=== PATIENT | male | born 1945 | race African-American/Black ===

== ENCOUNTER → 2017-02-25 | Outpatient (CLI) | payer MEDICARE, OTHER ==
[2017-02-25 14:27] LABS: ALT 26 U/L (21-72); AST 18 U/L (17-59); Alkaline Phosphatase 103 U/L (38-126); Anion Gap 16 mmol/L; Blood Urea Nitrogen 18 mg/dL (9-20); Calcium 9.9 mg/dL (8.4-10.2); Carbon Dioxide 23 mmol/L (22-30); Chloride 103 mmol/L (98-107); Cholesterol 220 mg/dL (<200); Glucose 205 mg/dL (74-99); HDL Cholesterol 58 mg/dL (40-60); Non-African American GFR(MDRD) >60 (>60 ml/min/1.73 sqM); Potassium 4.7 mmol/L (3.5-5.1); Sodium 142 mmol/L (137-145); Total Bilirubin 0.9 mg/dL (0.2-1.3); Total Protein 8.1 g/dL (6.3-8.2); Triglycerides 121 mg/dL (<150)
== END | disposition home or self-care (01) ==
LOC: LABWHC1 13:53
PROVIDERS: ATTEND Internal Medicine Endocrinology, Diabetes & Metabolism
DX: E11.65 Type 2 diabetes mellitus with hyperglycemia (principal)
CPT/HCPCS: 36415; 80053; 80061; 82043

== ENCOUNTER 2017-05-07 14:55 | Emergency (ER) | payer MEDICARE, OTHER ==
[2017-05-07 14:59] VITALS: TEMP 98.8
[2017-05-07 15:29] LABS: Glucose,Whole Blood 276 mg/dL (75-99)
[2017-05-07] MEDS ORDERED: LABETALOL 5 MG/ML VIAL MDV IVP STA (15:47)
--- NOTE | 2017-05-07 15:50 | ED ---
General Adult HPI - General Chief complaint: Dizziness Stated complaint: Hypertension Time Seen by Provider: 05/07/17 15:40 Source: patient, RN notes reviewed Mode of arrival: wheelchair Limitations: no limitations - History of Present Illness Initial comments: Patient is a pleasant 71-year-old male presenting to the emergency Department with concerns for hypertension. Onset of symptoms a couple hours ago. Patient felt lightheaded and did check his blood pressure. Blood pressure was 260 systolic. Patient rechecked it with a similar finding. Patient is feeling better at this time and states right headedness has near resolved. Patient does have a history of hypertension and does take his medication as directed. Patient did take his medication today. Patient does admit to having some increased stress recently. No confusion. No weakness. No chest pain. - Related Data Home Medications Medication Instructions Recorded Confirmed Aspirin [Adult Low Dose Aspirin EC] 81 mg PO DAILY 05/26/16 05/07/17 Carvedilol [Coreg] 12.5 mg PO BID 05/26/16 05/07/17 HYDROcodone/APAP 10-325MG [[place] 1 tab PO Q8H PRN 05/26/16 05/07/17 10-325] Lisinopril 40 mg PO DAILY 05/26/16 05/07/17 Simvastatin [Zocor] 20 mg PO HS 05/26/16 05/07/17 amLODIPine [Norvasc] 10 mg PO DAILY 05/26/16 05/07/17 cloNIDine HCL [Catapres] 0.2 mg PO TID 05/26/16 05/07/17 glipiZIDE XL [Glucotrol Xl] 10 mg PO DAILY 05/26/16 05/07/17 metFORMIN HCL [metFORMIN HCL ER] 1,000 mg PO BID 05/26/16 05/07/17 Insulin Detemir [Levemir] 74 unit SQ HS 05/07/17 05/07/17 Allergies Allergy/AdvReac Type Severity Reaction Status Date / Time antibiotics Allergy Unknown Uncoded 05/07/17 14:59 Review of Systems ROS Statement: Those systems with pertinent positive or pertinent negative responses have been documented in the HPI. ROS Other: All systems not noted in ROS Statement are negative. Constitutional: Denies: fever Eyes: Denies: eye pain ENT: Denies: ear pain Respiratory: Denies: cough Cardiovascular: Denies: chest pain Endocrine: Denies: fatigue Gastrointestinal: Denies: abdominal pain Genitourinary: Denies: dysuria Musculoskeletal: Denies: back pain Skin: Denies: rash Neurological: Denies: headache, weakness Past Medical History Past Medical History: Coronary Artery Disease (CAD), Diabetes Mellitus, Hypertension Additional Past Medical History / Comment(s): cyct on brain History of Any Multi-Drug Resistant Organisms: None Reported Past Surgical History: Appendectomy Past Psychological History: No Psychological Hx Reported Smoking Status: Never smoker Past Alcohol Use History: None Reported Past Drug Use History: None Reported General Exam Limitations: no limitations General appearance: alert, in no apparent distress Head exam: Present: atraumatic Eye exam: Present: normal appearance, PERRL ENT exam: Present: normal oropharynx Neck exam: Present: normal inspection Respiratory exam: Present: normal lung sounds bilaterally Cardiovascular Exam: Present: regular rate, normal rhythm GI/Abdominal exam: Present: soft. Absent: tenderness Extremities exam: Present: pedal edema (Patient states chronic). Absent: calf tenderness Neurological exam: Present: alert, CN II-XII intact. Absent: motor sensory deficit Expanded Motor strength exam: RUE: 5, LUE: 5, RLE: 5, LLE: 5 Psychiatric exam: Present: normal affect, normal mood Skin exam: Present: normal color Course Vital Signs 05/07/17 05/07/17 14:56 15:13 Temperature 98.8 F Pulse Rate 88 Pulse Rate [ 82 Right Radial] Respiratory 15 Rate Blood Pressure 230/132 O2 Sat by Pulse 99 Oximetry EKG Findings - EKG Comments: EKG Findings:: Normal sinus rhythm at 81. CT 172. QRS 84. QT 370. QTc 429. Normal axis. LVH. Inferior Q waves. No acute ST change. Medical Decision Making - Medical Decision Making Patient reevaluated and resting comfortably in bed. Blood pressure has improved. Patient is symptom-free. Patient updated on results and need for close follow-up with his doctor. - Lab Data Result diagrams: 05/07/17 16:22 05/07/17 16:22 Lab Results 05/07/17 05/07/17 05/07/17 Range/Units 15:20 16:22 16:22 WBC 9.2 (3.8-10.6) k/uL RBC 5.10 (4.30-5.90) m/uL Hgb 13.7 (13.0-17.5) gm/dL Hct 43.1 (39.0-53.0) % MCV 84.5 (80.0-100.0) fL MCH 26.8 (25.0-35.0) pg MCHC 31.7 (31.0-37.0) g/dL RDW 14.6 (11.5-15.5) % Plt Count 256 (150-450) k/uL Neutrophils % 64 % Lymphocytes % 23 % Monocytes % 7 % Eosinophils % 5 % Basophils % 0 % Neutrophils # 5.9 (1.3-7.7) k/uL Lymphocytes # 2.1 (1.0-4.8) k/uL Monocytes # 0.6 (0-1.0) k/uL Eosinophils # 0.4 (0-0.7) k/uL Basophils # 0.0 (0-0.2) k/uL Hypochromasia Slight Sodium 139 (137-145) mmol/L Potassium 4.6 (3.5-5.1) mmol/L Chloride 102 (98-107) mmol/L Carbon Dioxide 24 (22-30) mmol/L Anion Gap 13 mmol/L BUN 19 (9-20) mg/dL Creatinine 0.93 (0.66-1.25) mg/dL Est GFR (MDRD) Af Amer >60 (>60 ml/min/1.73 sqM) Est GFR (MDRD) Non-Af >60 (>60 ml/min/1.73 sqM) Glucose 291 H (74-99) mg/dL POC Glucose (mg/dL) 276 H (75-99) mg/dL POC Glu Beef Breaker ID Viji Velasquez Calcium 9.5 (8.4-10.2) mg/dL Total Bilirubin 0.6 (0.2-1.3) mg/dL AST 16 L (17-59) U/L ALT 20 L (21-72) U/L Alkaline Phosphatase 103 (38-126) U/L Total Protein 7.6 (6.3-8.2) g/dL Albumin 4.1 (3.5-5.0) g/dL - Radiology Data Interpreted by me: Chest x-ray shows no acute processes previous reviewed. Disposition Clinical Impression: Episode of hypertension Disposition: HOME SELF-CARE Condition: Stable Instructions: Hypertension (ED) Additional Instructions: Please follow-up doctor tomorrow. Return for uncontrolled blood pressure, dizziness, chest pain, weakness, worsening symptoms or other concerns. Referrals: Valentino Hart MD [Primary Care Provider] - 1-2 days Time of Disposition: 17:13
[2017-05-07 16:56] LABS: Basophils % (A) 0 %; CH 26.3; CHCM 31.3; Eosinophils # (A) 0.4 k/uL (0-0.7); Eosinophils % (A) 5 %; HCT 43.1 % (39.0-53.0); HDW 2.56; HGB 13.7 gm/dL (13.0-17.5); Hypochromasia Slight; Luc # (Auto) 0.22; Luc % (Auto) 2; Lymphocytes # (A) 2.1 k/uL (1.0-4.8); Lymphocytes % (A) 23 %; MCH 26.8 pg (25.0-35.0); MCHC 31.7 g/dL (31.0-37.0); MCV 84.5 fL (80.0-100.0); Mean Platelet Volume 8.5; Monocytes # (A) 0.6 k/uL (0-1.0); Monocytes % (A) 7 %; Neutrophils # (A) 5.9 k/uL (1.3-7.7); Neutrophils % (A) 64 %; RDW 14.6 % (11.5-15.5); WBC 9.2 k/uL (3.8-10.6); WBC (Perox) 8.65
[2017-05-07 17:07] LABS: ALT 20 U/L (21-72); AST 16 U/L (17-59); Alkaline Phosphatase 103 U/L (38-126); Anion Gap 13 mmol/L; Blood Urea Nitrogen 19 mg/dL (9-20); Calcium 9.5 mg/dL (8.4-10.2); Carbon Dioxide 24 mmol/L (22-30); Chloride 102 mmol/L (98-107); Glucose 291 mg/dL (74-99); Non-African American GFR(MDRD) >60 (>60 ml/min/1.73 sqM); Potassium 4.6 mmol/L (3.5-5.1); Sodium 139 mmol/L (137-145); Total Bilirubin 0.6 mg/dL (0.2-1.3); Total Protein 7.6 g/dL (6.3-8.2)
[2017-05-07] MEDS ORDERED: INSULIN REGULAR 100 UNIT/ML VIAL SQ ONE (17:12)
--- NOTE | 2017-05-07 17:21 | XR ---
EXAMINATION TYPE: XR chest 2V DATE OF EXAM: 05/07/2017 COMPARISON: 10/14/2012 HISTORY: Hypertension TECHNIQUE: Frontal and lateral views of the chest are obtained. FINDINGS: There is some coarsening of interstitial markings. There is no heart failure. Heart size i s normal. Thoracic aorta is atheromatous. There is a mild reticular infiltrate lateral to the right p ulmonary hilum. There is no pleural effusion. IMPRESSION: Pulmonary fibrotic changes. There is new minimal infiltrate in the right upper lobe comp ared to last exam. Normal heart.
[2017-05-07 17:40] VITALS: BP 170/94; PULSE 89; RESP 20
[2017-05-07 18:18] LABS: Appearance,Urine Clear (Clear); Bilirubin,Urine Negative (Negative); Glucose,Urine (UA) 4+ (Negative); Ketones,Urine Negative (Negative); Leukocyte Esterase,Urine Negative (Negative); Nitrite,Urine Negative (Negative); Protein,Urine Negative (Negative); Specific Gravity,Urine 1.011 (1.001-1.035); UA Billing (MACRO vs. MICRO) CHEM; Urobilinogen,Urine <2.0 mg/dL (<2.0)
== END 2017-05-07 17:46 | disposition home or self-care (01) ==
LOC: EC 14:55
DX: I10 Essential (primary) hypertension (principal); E11.9 Type 2 diabetes mellitus without complications; Z88.1 Allergy status to other antibiotic agents; Z79.4 Long term (current) use of insulin; Z79.84 Long term (current) use of oral hypoglycemic drugs; Z79.82 Long term (current) use of aspirin; Z79.899 Other long term (current) drug therapy
CPT/HCPCS: 36415; 71020; 80053; 81003; 85025; 93005; 96374; 99284

== ENCOUNTER 2017-06-13 15:58 | Emergency (ER) | payer MEDICARE, OTHER ==
[2017-06-13 16:04] VITALS: TEMP 98
[2017-06-13] MEDS ORDERED: DEXTROSE 50%-WATER 50 ML SYRINGE IVP STA (16:20)
[2017-06-13 16:24] LABS: Glucose,Whole Blood 36 mg/dL (75-99)
[2017-06-13 16:34] LABS: Glucose,Whole Blood 153 mg/dL (75-99)
[2017-06-13 16:51] LABS: Anion Gap 14 mmol/L; Blood Urea Nitrogen 29 mg/dL (9-20); Calcium 9.9 mg/dL (8.4-10.2); Carbon Dioxide 20 mmol/L (22-30); Chloride 109 mmol/L (98-107); Non-African American GFR(MDRD) 60 (>60 ml/min/1.73 sqM); Sodium 143 mmol/L (137-145)
[2017-06-13 16:53] LABS: Glucose 31 mg/dL (74-99)
[2017-06-13 16:54] LABS: Basophils % (A) 0 %; CH 26.5; CHCM 32.6; Eosinophils # (A) 0.5 k/uL (0-0.7); Eosinophils % (A) 6 %; HCT 42.5 % (39.0-53.0); HDW 2.53; HGB 13.9 gm/dL (13.0-17.5); Luc # (Auto) 0.25; Luc % (Auto) 3; Lymphocytes % (A) 25 %; MCH 26.7 pg (25.0-35.0); MCHC 32.7 g/dL (31.0-37.0); MCV 81.6 fL (80.0-100.0); Mean Platelet Volume 7.9; Monocytes # (A) 0.5 k/uL (0-1.0); Monocytes % (A) 6 %; Neutrophils # (A) 4.9 k/uL (1.3-7.7); Neutrophils % (A) 60 %; RBC 5.21 m/uL (4.30-5.90); RDW 14.4 % (11.5-15.5); WBC 8.1 k/uL (3.8-10.6); WBC (Perox) 8.32
[2017-06-13 19:21] LABS: Glucose,Whole Blood 155 mg/dL (75-99)
[2017-06-13 19:25] VITALS: RESP 18
--- NOTE | 2017-06-13 20:03 | XR ---
EXAMINATION TYPE: XR chest 2V DATE OF EXAM: 06/13/2017 COMPARISON: 05/07/2017 HISTORY: Pain and weakness TECHNIQUE: Frontal and lateral views of the chest are obtained. FINDINGS: There are prominent overlying soft tissues. There is no focal air space opacity, pleural e ffusion, or pneumothorax seen. The cardiac silhouette size is within normal limits. The osseous st ructures are intact. IMPRESSION: No acute cardiopulmonary process.
--- NOTE | 2017-06-13 20:56 | ED ---
General Adult HPI - General Chief complaint: Weakness Stated complaint: weakness Time Seen by Provider: 06/13/17 16:09 Source: patient, RN notes reviewed, old records reviewed Mode of arrival: wheelchair Limitations: no limitations - History of Present Illness Initial comments: 8-year-old man presented with generalized weakness and diaphoresis. Patient was found to be hypoglycemic on initial evaluation. He states he had surgery for breakfast at approximately 8 AM he also took his glipizide and Levemir which is 74 units and 10 mg of glipizide he did not eat lunch. He weakness began shortly after that. Patient denies chest pain or shortness of breath. He was recently treated for pneumonia. Denies nausea vomiting or diarrhea. He has not no acute disease. No recent adjustments in his medication. - Related Data Home Medications Medication Instructions Recorded Confirmed Aspirin [Adult Low Dose Aspirin EC] 81 mg PO DAILY 05/26/16 06/13/17 Carvedilol [Coreg] 12.5 mg PO BID 05/26/16 06/13/17 HYDROcodone/APAP 10-325MG [[place] 1 tab PO Q8H PRN 05/26/16 06/13/17 10-325] Lisinopril 20 mg PO BID 05/26/16 06/13/17 Simvastatin [Zocor] 20 mg PO DAILY 05/26/16 06/13/17 amLODIPine [Norvasc] 10 mg PO DAILY 05/26/16 06/13/17 cloNIDine HCL [Catapres] 0.2 mg PO TID 05/26/16 06/13/17 glipiZIDE XL [Glucotrol Xl] 10 mg PO DAILY 05/26/16 06/13/17 Insulin Detemir [Levemir] 74 unit SQ DAILY 05/07/17 06/13/17 Insulin Detemir [Levemir] 20 unit SQ HS 06/13/17 06/13/17 metFORMIN HCL [Glucophage] 1,000 mg PO BID 06/13/17 06/13/17 Allergies Allergy/AdvReac Type Severity Reaction Status Date / Time antibiotics Allergy Unknown Uncoded 06/13/17 16:04 Review of Systems ROS Statement: Those systems with pertinent positive or pertinent negative responses have been documented in the HPI. ROS Other: All systems not noted in ROS Statement are negative. Constitutional: Reports: fever, chills Respiratory: Reports: cough Cardiovascular: Reports: chest pain Past Medical History Past Medical History: Coronary Artery Disease (CAD), Diabetes Mellitus, Hypertension Additional Past Medical History / Comment(s): cyct on brain History of Any Multi-Drug Resistant Organisms: None Reported Past Surgical History: Appendectomy Past Psychological History: No Psychological Hx Reported Smoking Status: Never smoker Past Alcohol Use History: None Reported Past Drug Use History: None Reported General Exam Limitations: no limitations General appearance: alert, other (Slow to respond) Head exam: Present: atraumatic, normocephalic Eye exam: Present: normal appearance, PERRL ENT exam: Present: normal exam, mucous membranes dry Respiratory exam: Present: normal lung sounds bilaterally. Absent: respiratory distress Cardiovascular Exam: Present: regular rate, normal rhythm GI/Abdominal exam: Present: soft. Absent: distended, tenderness Extremities exam: Present: normal inspection, normal capillary refill, pedal edema Neurological exam: Present: alert, oriented X3. Absent: motor sensory deficit Psychiatric exam: Present: normal affect, normal mood Skin exam: Present: warm, diaphoretic Course Vital Signs 06/13/17 06/13/17 16:00 19:24 Temperature 98.0 F Pulse Rate 68 71 Respiratory 20 18 Rate Blood Pressure 178/78 176/86 O2 Sat by Pulse 98 99 Oximetry - Reevaluation(s) Reevaluation #1: 06/13/17 20:51 Patient was given 1 amp of dextrose. On reevaluation patient's symptoms have resolved. He denies weakness. He denies chest pain or shortness of breath. His diaphoresis has resolved. EKG Findings - EKG Comments: EKG Findings:: EKG shows normal sinus rhythm with a ventricular is 69, NH interval is 22, QRS duration 84, QTC is 435, there is no ST segment elevation or depression Medical Decision Making - Medical Decision Making 71-year-old male with history diabetes presenting with episode of hypoglycemia. Patient takes 10 mg of glipizide as well as Levemir in the morning and evening. He did not eat lunch today. He is found to have a blood sugar in the 30s. After administration of glucose his blood sugar normalized. He was observed, tolerated a sandwich in the emergency department. Repeat blood sugar tests were normal. Patient's laboratory studies including kidney function were normal. Patient did state he had a pneumonia and was concerned that the pneumonia may not of cleared up. He denies cough. Chest x-ray shows no acute infiltrate. Patient denies fever, dyspnea, or cough. Patient is instructed to hold his morning dose of glipizide, he will also reduce his Levemir dose and follow up with his primary care physician in the next several days. - Lab Data Result diagrams: 06/13/17 16:20 06/13/17 16:20 Lab Results 06/13/17 06/13/17 06/13/17 Range/Units 16:14 16:20 16:20 WBC 8.1 (3.8-10.6) k/uL RBC 5.21 (4.30-5.90) m/uL Hgb 13.9 (13.0-17.5) gm/dL Hct 42.5 (39.0-53.0) % MCV 81.6 (80.0-100.0) fL MCH 26.7 (25.0-35.0) pg MCHC 32.7 (31.0-37.0) g/dL RDW 14.4 (11.5-15.5) % Plt Count 310 (150-450) k/uL Neutrophils % 60 % Lymphocytes % 25 % Monocytes % 6 % Eosinophils % 6 % Basophils % 0 % Neutrophils # 4.9 (1.3-7.7) k/uL Lymphocytes # 2.0 (1.0-4.8) k/uL Monocytes # 0.5 (0-1.0) k/uL Eosinophils # 0.5 (0-0.7) k/uL Basophils # 0.0 (0-0.2) k/uL Sodium 143 (137-145) mmol/L Potassium 5.0 (3.5-5.1) mmol/L Chloride 109 H (98-107) mmol/L Carbon Dioxide 20 L (22-30) mmol/L Anion Gap 14 mmol/L BUN 29 H (9-20) mg/dL Creatinine 1.20 (0.66-1.25) mg/dL Est GFR (MDRD) Af Amer >60 (>60 ml/min/1.73 sqM) Est GFR (MDRD) Non-Af 60 (>60 ml/min/1.73 sqM) Glucose 31 L* (74-99) mg/dL POC Glucose (mg/dL) 36 L (75-99) mg/dL POC Glu Manager Rn ID Eunice Kraft Calcium 9.9 (8.4-10.2) mg/dL 06/13/17 06/13/17 Range/Units 16:32 19:19 WBC (3.8-10.6) k/uL RBC (4.30-5.90) m/uL Hgb (13.0-17.5) gm/dL Hct (39.0-53.0) % MCV (80.0-100.0) fL MCH (25.0-35.0) pg MCHC (31.0-37.0) g/dL RDW (11.5-15.5) % Plt Count (150-450) k/uL Neutrophils % % Lymphocytes % % Monocytes % % Eosinophils % % Basophils % % Neutrophils # (1.3-7.7) k/uL Lymphocytes # (1.0-4.8) k/uL Monocytes # (0-1.0) k/uL Eosinophils # (0-0.7) k/uL Basophils # (0-0.2) k/uL Sodium (137-145) mmol/L Potassium (3.5-5.1) mmol/L Chloride (98-107) mmol/L Carbon Dioxide (22-30) mmol/L Anion Gap mmol/L BUN (9-20) mg/dL Creatinine (0.66-1.25) mg/dL Est GFR (MDRD) Af Amer (>60 ml/min/1.73 sqM) Est GFR (MDRD) Non-Af (>60 ml/min/1.73 sqM) Glucose (74-99) mg/dL POC Glucose (mg/dL) 153 H 155 H (75-99) mg/dL POC Glu Manager Rn ID Eunice Kraft Farideh Jaimes A Calcium (8.4-10.2) mg/dL Disposition Clinical Impression: Hypoglycemia Disposition: HOME SELF-CARE Condition: Good Instructions: Hypoglycemia in a Person with Diabetes (ED) Additional Instructions: Patient should not take his morning dose of glipizide, make sure he eats abdominal strep the day and follow-up with his primary care physician. Referrals: Valentino Hart MD [Primary Care Provider] - 1-2 days Time of Disposition: 20:00
[2017-06-13 21:19] VITALS: BP 161/80; PULSE 76
== END 2017-06-13 21:17 | disposition home or self-care (01) ==
LOC: EC 15:58
DX: E11.649 Type 2 diabetes mellitus with hypoglycemia without coma (principal); I25.10 Atherosclerotic heart disease of native coronary artery without angina pectoris; I10 Essential (primary) hypertension; Z79.4 Long term (current) use of insulin; Z79.82 Long term (current) use of aspirin; Z79.899 Other long term (current) drug therapy; Z88.1 Allergy status to other antibiotic agents
CPT/HCPCS: 36415; 71020; 80048; 85025; 93005; 96374; 99285

== ENCOUNTER → 2017-08-21 | Outpatient (CLI) | payer MEDICARE, OTHER ==
[2017-08-21 13:21] LABS: Blood Urea Nitrogen 24 mg/dL (9-20); Non-African American GFR(MDRD) >60 (>60 ml/min/1.73 sqM)
--- NOTE | 2017-08-21 14:32 | CT ---
EXAMINATION TYPE: CT brain w con DATE OF EXAM: 08/21/2017 COMPARISON: 08/05/2016 HISTORY: TIA, Headache CT DLP: 1269 mGycm Automated exposure control for dose reduction was used. CONTRAST: CT scan of the head is performed with IV Contrast, patient injected with 100 ml mL of Omnipaque 300. FINDINGS: CSF prominence in the anterior temporal fossa measuring 3.7 x 2.9 cm in right anterior temporal fossa measuring 1.8 x 1.2 cm appears stable and is more typical of arachnoid cysts. There is stable mass e ffect upon the anterior left temporal lobe. No midline shift or mass effect mild generalized degenerative change noted. No enhancing masses. Dens e dural calcification noted. Atherosclerotic changes are noted of the vasculature. Calvarium intact. Osteoma involving the frontal sinus is stable. 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 Remains stable amount of mass effect upon the anterior left temporal lobe.
== END | disposition home or self-care (01) ==
LOC: RADCTMAIN 12:39
PROVIDERS: ATTEND Internal Medicine
DX: G93.9 Disorder of brain, unspecified (principal); R51 Headache; R40.4 Transient alteration of awareness
CPT/HCPCS: 82565; 84520; 70460; 36415; Q9967

== ENCOUNTER 2017-10-10 15:34 | Emergency (ER) | payer MEDICARE, OTHER ==
--- NOTE | 2017-10-10 15:57 | ED ---
Recheck HPI - General Chief Complaint: Recheck/Abnormal Lab/Rx Stated Complaint: Dr Sent/ Ab normal Labs Time Seen by Provider: 10/10/17 15:49 Source: patient, RN notes reviewed Mode of arrival: wheelchair Limitations: no limitations - History of Present Illness Initial Comments: This is a 71-year-old male who was sent in from his doctor's office because of a high potassium level. Potassium was a routine blood draw apparently no symptoms of chest pain fevers chills nausea vomiting sweats no palpitations. Patient denies any history of heart disease he denies any history of kidney disease. MD Complaint: abnormal lab - Related Data Home Medications Medication Instructions Recorded Confirmed Aspirin [Adult Low Dose Aspirin EC] 81 mg PO DAILY 05/26/16 10/10/17 Carvedilol [Coreg] 12.5 mg PO BID 05/26/16 10/10/17 HYDROcodone/APAP 10-325MG [[place] 1 tab PO Q8H PRN 05/26/16 10/10/17 10-325] Lisinopril 20 mg PO BID 05/26/16 10/10/17 Simvastatin [Zocor] 20 mg PO DAILY 05/26/16 10/10/17 amLODIPine [Norvasc] 10 mg PO DAILY 05/26/16 10/10/17 cloNIDine HCL [Catapres] 0.2 mg PO TID 05/26/16 10/10/17 Insulin Detemir [Levemir] 50 unit SQ DAILY 05/07/17 10/10/17 metFORMIN HCL [Glucophage] 1,000 mg PO BID 06/13/17 10/10/17 Empagliflozin [[place]] 10 mg PO DAILY 10/10/17 10/10/17 sitaGLIPtin [Januvia] 100 mg PO DAILY 10/10/17 10/10/17 Previous Rx's Medication Instructions Recorded Sodium Polystyrene Sulfonate 15 gm PO AC-BID #60 ml 10/10/17 [Kayexalate] Allergies Allergy/AdvReac Type Severity Reaction Status Date / Time antibiotics Allergy Unknown Uncoded 10/10/17 15:40 Review of Systems ROS Statement: Those systems with pertinent positive or pertinent negative responses have been documented in the HPI. ROS Other: All systems not noted in ROS Statement are negative. Past Medical History Past Medical History: Coronary Artery Disease (CAD), Diabetes Mellitus, Hypertension Additional Past Medical History / Comment(s): cyst on brain History of Any Multi-Drug Resistant Organisms: None Reported Past Surgical History: Appendectomy Past Psychological History: No Psychological Hx Reported Smoking Status: Never smoker Past Alcohol Use History: None Reported Past Drug Use History: None Reported General Exam - General Exam Comments Initial Comments: Is a well-developed well-nourished awake alert oriented times 3 male Limitations: no limitations General appearance: alert, in no apparent distress Head exam: Present: atraumatic, normocephalic, normal inspection Eye exam: Present: normal appearance, PERRL, EOMI. Absent: scleral icterus, conjunctival injection, periorbital swelling ENT exam: Present: normal exam, mucous membranes moist Neck exam: Present: normal inspection. Absent: tenderness, meningismus, lymphadenopathy Respiratory exam: Present: normal lung sounds bilaterally. Absent: respiratory distress, wheezes, rales, rhonchi, stridor Cardiovascular Exam: Present: regular rate, normal rhythm, normal heart sounds. Absent: systolic murmur, diastolic murmur, rubs, gallop, clicks GI/Abdominal exam: Present: soft, normal bowel sounds. Absent: distended, tenderness, guarding, rebound, rigid Extremities exam: Present: normal inspection, full ROM, normal capillary refill. Absent: tenderness, pedal edema, joint swelling, calf tenderness Back exam: Present: normal inspection Neurological exam: Present: alert, oriented X3, CN II-XII intact Psychiatric exam: Present: normal affect, normal mood Skin exam: Present: warm, dry, intact, normal color. Absent: rash Course Vital Signs 10/10/17 10/10/17 10/10/17 15:38 17:00 17:34 Temperature 98.1 F 98.5 F Pulse Rate 85 90 80 Respiratory 18 20 18 Rate Blood Pressure 157/84 130/71 106/56 O2 Sat by Pulse 99 98 98 Oximetry Medical Decision Making - Medical Decision Making Repeat potassium is improved to 5.8 patient is asymptomatic EKG is unremarkable I did discuss the case with Dr. Hart. Patient be treated in emergency department relief he'll follow-up with Dr. Hart in it further evaluation outpatient. - Lab Data Result diagrams: 10/10/17 16:00 10/10/17 16:00 Lab Results 10/10/17 10/10/17 Range/Units 16:00 16:00 WBC 9.1 (3.8-10.6) k/uL RBC 4.89 (4.30-5.90) m/uL Hgb 13.5 (13.0-17.5) gm/dL Hct 43.2 (39.0-53.0) % MCV 88.3 (80.0-100.0) fL MCH 27.6 (25.0-35.0) pg MCHC 31.2 (31.0-37.0) g/dL RDW 14.2 (11.5-15.5) % Plt Count 289 (150-450) k/uL Neutrophils % 67 % Lymphocytes % 20 % Monocytes % 6 % Eosinophils % 6 % Basophils % 1 % Neutrophils # 6.0 (1.3-7.7) k/uL Lymphocytes # 1.8 (1.0-4.8) k/uL Monocytes # 0.5 (0-1.0) k/uL Eosinophils # 0.5 (0-0.7) k/uL Basophils # 0.0 (0-0.2) k/uL Hypochromasia Slight Sodium 137 (137-145) mmol/L Potassium 5.8 H (3.5-5.1) mmol/L Chloride 101 (98-107) mmol/L Carbon Dioxide 25 (22-30) mmol/L Anion Gap 11 mmol/L BUN 28 H (9-20) mg/dL Creatinine 1.47 H (0.66-1.25) mg/dL Est GFR (MDRD) Af Amer 57 (>60 ml/min/1.73 sqM) Est GFR (MDRD) Non-Af 47 (>60 ml/min/1.73 sqM) Glucose 356 H (74-99) mg/dL Calcium 9.1 (8.4-10.2) mg/dL Magnesium 2.0 (1.6-2.3) mg/dL Total Bilirubin 0.3 (0.2-1.3) mg/dL AST 14 L (17-59) U/L ALT 28 (21-72) U/L Alkaline Phosphatase 94 (38-126) U/L Total Protein 7.4 (6.3-8.2) g/dL Albumin 3.9 (3.5-5.0) g/dL - EKG Data -: EKG Interpreted by [place] EKG shows normal: sinus rhythm (EKG done on this patient at the time of visit in the air showed a normal sinus rhythm of 82. Interval 192 QRS 82. A 192 QT since QTC of 364/425 nonspecific inferior changes noted no acute ST elevations or depressions.) Disposition Clinical Impression: Hyperkalemia, Renal insufficiency Disposition: HOME SELF-CARE Condition: Good Instructions: Hyperkalemia (ED), Impaired Kidney Function (ED) Prescriptions: Sodium Polystyrene Sulfonate [Kayexalate] 15 gm PO AC-BID #60 ml Referrals: Valentino Hart MD [Primary Care Provider] - 1-2 days
[2017-10-10 16:26] LABS: Basophils % (A) 1 %; CH 27.3; CHCM 31.1; Eosinophils # (A) 0.5 k/uL (0-0.7); Eosinophils % (A) 6 %; HCT 43.2 % (39.0-53.0); HDW 2.39; HGB 13.5 gm/dL (13.0-17.5); Hypochromasia Slight; Luc # (Auto) 0.17; Luc % (Auto) 2; Lymphocytes # (A) 1.8 k/uL (1.0-4.8); Lymphocytes % (A) 20 %; MCH 27.6 pg (25.0-35.0); MCHC 31.2 g/dL (31.0-37.0); MCV 88.3 fL (80.0-100.0); Mean Platelet Volume 8.2; Monocytes # (A) 0.5 k/uL (0-1.0); Monocytes % (A) 6 %; Neutrophils % (A) 67 %; RBC 4.89 m/uL (4.30-5.90); RDW 14.2 % (11.5-15.5); WBC 9.1 k/uL (3.8-10.6)
[2017-10-10 16:36] LABS: Calcium 9.1 mg/dL (8.4-10.2); Potassium 5.8 mmol/L (3.5-5.1); Total Bilirubin 0.3 mg/dL (0.2-1.3); Total Protein 7.4 g/dL (6.3-8.2)
[2017-10-10] MEDS ORDERED: SODIUM POLYSTYRENE SULFONATE 15 GM/60 ML BOTTLE PO ONE (16:53)
[2017-10-10] MEDS ORDERED: FUROSEMIDE 10 MG/ML 4 ML VIAL IV STA (16:55)
[2017-10-10 17:36] VITALS: BP 106/56; PULSE 80; RESP 18; TEMP 98.5
== END 2017-10-10 17:39 | disposition home or self-care (01) ==
LOC: EC 15:34
DX: E87.5 Hyperkalemia (principal); N28.9 Disorder of kidney and ureter, unspecified; I25.10 Atherosclerotic heart disease of native coronary artery without angina pectoris; E11.9 Type 2 diabetes mellitus without complications; I10 Essential (primary) hypertension; Z79.4 Long term (current) use of insulin; Z79.82 Long term (current) use of aspirin; Z79.899 Other long term (current) drug therapy; Z88.1 Allergy status to other antibiotic agents
CPT/HCPCS: 36415; 93005; 80053; 83735; 85025; 99283; 96374; J1940; 80051; 82306; 82565; 82607; 82746; 84450; 84460; 84520; 86617; 86618

== ENCOUNTER → 2017-10-10 | Outpatient (CLI) | payer MEDICARE, OTHER ==
[2017-10-10 13:16] LABS: Basophils # (A) 0.1 k/uL (0-0.2); Basophils % (A) 1 %; CHCM 29.7; Eosinophils # (A) 0.4 k/uL (0-0.7); Eosinophils % (A) 5 %; HCT 46.8 % (39.0-53.0); HDW 2.36; HGB 13.9 gm/dL (13.0-17.5); Hypochromasia Marked; Luc # (Auto) 0.14; Luc % (Auto) 2; Lymphocytes # (A) 1.7 k/uL (1.0-4.8); Lymphocytes % (A) 22 %; MCH 27.2 pg (25.0-35.0); MCHC 29.8 g/dL (31.0-37.0); MCV 91.4 fL (80.0-100.0); Monocytes # (A) 0.6 k/uL (0-1.0); Monocytes % (A) 8 %; Neutrophils % (A) 63 %; RBC 5.12 m/uL (4.30-5.90); RDW 14.3 % (11.5-15.5); WBC 7.9 k/uL (3.8-10.6); WBC (Perox) 7.31
[2017-10-10 13:29] LABS: ALT 25 U/L (21-72); AST 15 U/L (17-59); Anion Gap 11 mmol/L; Blood Urea Nitrogen 26 mg/dL (9-20); Carbon Dioxide 22 mmol/L (22-30); Chloride 104 mmol/L (98-107); Non-African American GFR(MDRD) 50 (>60 ml/min/1.73 sqM); Sodium 137 mmol/L (137-145)
[2017-10-10 13:40] LABS: Potassium 6.3 mmol/L (3.5-5.1)
[2017-10-11 12:18] LABS: Lyme IgG/IgM 1.1 Index; Lyme IgG/IgM Interp POSITIVE (NEGATIVE)
[2017-10-18 08:27] LABS: Mis test requested (Blood) Lyme IgG/IgM IB
== END | disposition home or self-care (01) ==
LOC: LABWHC1 12:14
PROVIDERS: ATTEND Psychiatry & Neurology Neurology
DX: R41.3 Other amnesia (principal)
CPT/HCPCS: 36415; 80051; 82306; 82565; 82607; 82746; 84450; 84460; 84520; 85025; 86617; 86618

== ENCOUNTER 2018-10-03 12:21 | Inpatient (IN) | payer MEDICARE, OTHER ==
--- NOTE | 2018-10-03 12:52 | ED ---
Chest Pain HPI - General Chief Complaint: Chest Pain Stated Complaint: chest & back pain Time Seen by Provider: 10/03/18 12:47 Source: patient, RN notes reviewed, old records reviewed Mode of arrival: ambulatory Limitations: no limitations - History of Present Illness Initial Comments: This is a 72-year-old male the ER for chest pain chest pain left anterior. Patient has history of high blood pressure diabetes. Patient states that this time his symptoms are resolved. He does feel improved. No abdominal pain no nausea no vomiting no shortness of breath no palpitations, no swelling or diaphoresis. MD Complaint: chest pain -: minutes(s) Onset: during rest Pain Location: substernal, left chest Pain Radiation: LUE Severity scale (1-10): 3 Quality: tightness, other (Burning) Consistency: now resolved Improves With: nothing Worsens With: nothing Treatments Prior to Arrival: none - Related Data Home Medications Medication Instructions Recorded Confirmed Carvedilol [Coreg] 12.5 mg PO BID 05/26/16 10/03/18 Lisinopril 20 mg PO BID 05/26/16 10/03/18 Simvastatin [Zocor] 20 mg PO DAILY 05/26/16 10/03/18 amLODIPine [Norvasc] 10 mg PO DAILY 05/26/16 10/03/18 cloNIDine HCL [Catapres] 0.2 mg PO TID 05/26/16 10/03/18 Insulin Detemir [Levemir] 50 unit SQ DAILY 05/07/17 10/03/18 metFORMIN HCL [Glucophage] 1,000 mg PO BID 06/13/17 10/03/18 sitaGLIPtin [Januvia] 100 mg PO DAILY 10/10/17 10/03/18 Dapagliflozin Propanediol [Farxiga] 10 mg PO DAILY 10/03/18 10/03/18 Pioglitazone HCl [Actos] 15 mg PO DAILY 10/03/18 10/03/18 Spironolactone 25 mg PO DAILY 10/03/18 10/03/18 traMADol HCL [Ultram] 50 mg PO Q8H PRN 10/03/18 10/03/18 Allergies Allergy/AdvReac Type Severity Reaction Status Date / Time antibiotics Allergy Unknown Uncoded 10/10/17 15:40 Review of Systems ROS Statement: Those systems with pertinent positive or pertinent negative responses have been documented in the HPI. ROS Other: All systems not noted in ROS Statement are negative. EKG Findings - EKG Comments: EKG Findings:: EKG shows normal sinus rhythm rate of 60, IL 204, QRS 80, QTC 406 Past Medical History Past Medical History: Coronary Artery Disease (CAD), Diabetes Mellitus, Hypertension Additional Past Medical History / Comment(s): cyst on brain History of Any Multi-Drug Resistant Organisms: None Reported Past Surgical History: Appendectomy Past Psychological History: No Psychological Hx Reported Smoking Status: Never smoker Past Alcohol Use History: None Reported Past Drug Use History: None Reported General Exam Limitations: no limitations General appearance: alert, in no apparent distress Head exam: Present: atraumatic, normocephalic, normal inspection Eye exam: Present: normal appearance, PERRL, EOMI. Absent: scleral icterus, conjunctival injection, periorbital swelling ENT exam: Present: normal exam, mucous membranes moist Neck exam: Present: normal inspection. Absent: tenderness, meningismus, lymphadenopathy Respiratory exam: Present: normal lung sounds bilaterally. Absent: respiratory distress, wheezes, rales, rhonchi, stridor Cardiovascular Exam: Present: regular rate, normal rhythm, normal heart sounds. Absent: systolic murmur, diastolic murmur, rubs, gallop, clicks GI/Abdominal exam: Present: soft, normal bowel sounds. Absent: distended, tenderness, guarding, rebound, rigid Extremities exam: Present: normal inspection, full ROM, normal capillary refill. Absent: tenderness, pedal edema, joint swelling, calf tenderness Back exam: Present: normal inspection Neurological exam: Present: alert, oriented X3, CN II-XII intact Psychiatric exam: Present: normal affect, normal mood Skin exam: Present: warm, dry, intact, normal color. Absent: rash Course Vital Signs 10/03/18 10/03/18 10/03/18 12:23 13:01 14:00 Temperature 98 F Pulse Rate 71 66 57 L Respiratory 18 19 16 Rate Blood Pressure 118/73 128/81 114/99 O2 Sat by Pulse 100 98 Oximetry 10/03/18 10/03/18 10/03/18 14:53 15:00 15:30 Temperature Pulse Rate 59 L 63 65 Respiratory 18 16 17 Rate Blood Pressure 148/59 148/59 141/88 O2 Sat by Pulse 98 97 Oximetry 11/02/18 16:00 Temperature Pulse Rate 66 Respiratory 16 Rate Blood Pressure 118/93 O2 Sat by Pulse 95 Oximetry - Reevaluation(s) Reevaluation #1: Record is reviewed Patient states he feels improved remains without pain throughout ER stay, does not want to stay for observation Chest Pain MDM - MDM 72 male the ER for evaluation of chest pain. Left-sided chest pain with history of heart disease. Patient refusing observation, states he has been nauseous accomplish today. Again remains without chest pain EKG and troponin are negative. Patient will be discharged home Disposition Clinical Impression: Chest pain Disposition: ADMITTED IP TO THIS HOSP Condition: Undetermined Instructions: Chest Pain (ED) Is patient prescribed a controlled substance at d/c from ED?: No Referrals: Valentino Hart MD [Primary Care Provider] - 1-2 days
[2018-10-03 13:31] LABS: Basophils % (A) 0 %; Eosinophils # (A) 0.5 k/uL (0-0.7); Eosinophils % (A) 7 %; HCT 41.5 % (39.0-53.0); HGB 13.3 gm/dL (13.0-17.5); Lymphocytes # (A) 1.7 k/uL (1.0-4.8); Lymphocytes % (A) 22 %; MCH 26.9 pg (25.0-35.0); MCV 84.1 fL (80.0-100.0); Mean Platelet Volume 8.1; Monocytes # (A) 0.4 k/uL (0-1.0); Monocytes % (A) 6 %; Neutrophils # (A) 4.9 k/uL (1.3-7.7); Neutrophils % (A) 64 %; Platelet Count 261 k/uL (150-450); RBC 4.93 m/uL (4.30-5.90); RDW 14.8 % (11.5-15.5); WBC 7.7 k/uL (3.8-10.6)
[2018-10-03 13:35] LABS: INR 1.1 (<1.2); Partial Thromboplastin Time 25.7 sec (22.0-30.0); Prothrombin Time 10.6 sec (9.0-12.0)
[2018-10-03 13:43] LABS: Albumin 3.8 g/dL (3.5-5.0); Calcium 9.3 mg/dL (8.4-10.2); Magnesium 1.9 mg/dL (1.6-2.3); Total Bilirubin 0.5 mg/dL (0.2-1.3); Total Protein 7.6 g/dL (6.3-8.2)
[2018-10-03 13:53] LABS: Creatine Kinase 42 U/L (55-170)
[2018-10-03 14:05] LABS: Creatine Kinase MB <0.2 ng/mL (0.0-2.4); Troponin I <0.012 ng/mL (0.000-0.034)
--- NOTE | 2018-10-03 14:36 | CT ---
EXAMINATION TYPE: CT angio chest DATE OF EXAM: 10/03/2018 COMPARISON: Chest radiograph dated 06/13/2017 HISTORY: Chest and back pain CT DLP: 822.3 mGycm. Automated Exposure Control for Dose Reduction was Utilized. CONTRAST: CTA scan of the thorax is performed with IV Contrast, patient injected with 100 mL of Isovue 370, pul monary embolism protocol. MIP Images are created on CT scanner and reviewed. FINDINGS: Exam is overall suboptimal secondary to patient body habitus. Partially visualized probable large right renal cyst measures at least 4.5 cm. LUNGS: The lungs are grossly clear, there is no concerning parenchymal mass or nodule identified. Th ere is slight right hemidiaphragm elevation is present. There is no pleural effusion or pneumothorax seen. The tracheobronchial tree is patent. MEDIASTINUM: There is satisfactory enhancement of the pulmonary artery and its branches, there is no CT evidence for pulmonary embolism. There are no greater than 1 cm hilar or mediastinal lymph nodes. No cardiomegaly or pericardial effusion is seen. OTHER: Small splenule is noted adjacent to the [place] spleen. There is asymmetric retroareolar breast tissue on the right. Thyroid gland is enlarged with substernal extent. There are small hiatal hernia is noted. Mild mid thoracic compression deformities age-indeterminate without retropulsion. This is at approximately T6. IMPRESSION: 1. No evidence of pulmonary embolus. 2. Age indeterminant compression deformity at approximately T6. Correlate with point tenderness. MRI could evaluate for bone marrow edema and determine acuity. This is suspected to have been retrospecti vely subtly present on the prior 2 view chest radiograph of 06/13/2017. 3. Right retroareolar asymmetric breast tissue. Although this could represent gynecomastia given its pronounced asymmetry diagnostic mammogram is recommended to evaluate for mass or microcalcifications.
[2018-10-03] MEDS ORDERED: diphenhydrAMINE 50 MG/ML 1 ML VIAL IVP STA (15:04)
[2018-10-03] MEDS ORDERED: NITROGLYCERIN SL TABS 0.4 MG TAB SUBLINGUAL PRN (18:07)
[2018-10-03] MEDS ORDERED: HEPARIN SODIUM,PORCINE 5,000 UNIT/ML 1 ML VIAL IV ONE (18:07)
[2018-10-03] MEDS ORDERED: traMADol 50 MG TAB PO PRN (18:09)
[2018-10-03] MEDS ORDERED: HEPARIN SOD,PORK IN 0.45% NACL 25,000 UNIT in 0.45% NACL 1 500ML.BAG IV SCH (18:15)
[2018-10-03 19:00] LABS: Amylase 99 U/L (30-110); Lipase 59 U/L (23-300)
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
[2018-10-03] MEDS: LISINOPRIL 20 MG TAB PO SCH (20:35)
[2018-10-03] MEDS: metFORMIN 500 MG TAB PO SCH (20:35)
[2018-10-03] MEDS: CARVEDILOL 12.5 MG TAB PO SCH (20:35)
[2018-10-03] MEDS: cloNIDine HCL 0.2 MG TAB PO SCH (20:35)
[2018-10-03 20:51] LABS: Creatine Kinase 44 U/L (55-170)
[2018-10-03 21:02] LABS: Creatine Kinase MB <0.2 ng/mL (0.0-2.4); Troponin I <0.012 ng/mL (0.000-0.034)
[2018-10-03] MEDS: NITROGLYCERIN OINT 1 INCH/GM PACKET TOPICAL SCH (23:12)
[2018-10-03] MEDS: HYDROcodone/APAP 5-325MG 1 EACH TAB PO PRN (23:39)
[2018-10-03 23:52] LABS: Appearance,Urine Clear (Clear); Bilirubin,Urine Negative (Negative); Blood,Urine Negative (Negative); Color,Urine Light Yellow; Glucose,Urine (UA) 4+ (Negative); Ketones,Urine Negative (Negative); Leukocyte Esterase,Urine Negative (Negative); Nitrite,Urine Negative (Negative); PH, Urine 6.5 (5.0-8.0); Protein,Urine Negative (Negative); Specific Gravity,Urine 1.036 (1.001-1.035); Urobilinogen,Urine <2.0 mg/dL (<2.0)
[2018-10-04 02:09] LABS: Glucose,Whole Blood 87 mg/dL (75-99)
[2018-10-04 02:18] LABS: Creatine Kinase 34 U/L (55-170)
[2018-10-04 02:31] LABS: Creatine Kinase MB <0.2 ng/mL (0.0-2.4); Troponin I <0.012 ng/mL (0.000-0.034)
[2018-10-04 03:46] LABS: Hemoglobin A1C 8.5 % (4.0-6.0)
[2018-10-04] MEDS: NITROGLYCERIN OINT 1 INCH/GM PACKET TOPICAL SCH ×4 (04:03→23:48)
[2018-10-04 06:57] LABS: Glucose,Whole Blood 203 mg/dL (75-99)
[2018-10-04 08:15] LABS: Basophils # (A) 0.1 k/uL (0-0.2); Basophils % (A) 1 %; Eosinophils # (A) 0.5 k/uL (0-0.7); Eosinophils % (A) 6 %; HGB 12.4 gm/dL (13.0-17.5); Hypochromasia Slight; Lymphocytes # (A) 2.3 k/uL (1.0-4.8); Lymphocytes % (A) 28 %; MCH 26.3 pg (25.0-35.0); MCHC 30.4 g/dL (31.0-37.0); MCV 86.6 fL (80.0-100.0); Mean Platelet Volume 8.2; Monocytes # (A) 0.4 k/uL (0-1.0); Monocytes % (A) 5 %; Neutrophils # (A) 4.9 k/uL (1.3-7.7); Neutrophils % (A) 59 %; Platelet Count 236 k/uL (150-450); RBC 4.73 m/uL (4.30-5.90); RDW 14.9 % (11.5-15.5); WBC 8.3 k/uL (3.8-10.6)
[2018-10-04 08:43] LABS: Calcium 9.1 mg/dL (8.4-10.2); Potassium 4.7 mmol/L (3.5-5.1)
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
[2018-10-04] MEDS ORDERED: ASPIRIN 325 MG TAB PO SCH (09:00)
[2018-10-04] MEDS ORDERED: SPIRONOLACTONE 25 MG TAB PO SCH (09:00)
[2018-10-04] MEDS ORDERED: amLODIPine 10 MG TAB PO SCH (09:00)
[2018-10-04] MEDS: LISINOPRIL 20 MG TAB PO SCH ×2 (09:43→20:33)
[2018-10-04] MEDS: ATORVASTATIN 10 MG TAB PO SCH (09:43)
[2018-10-04] MEDS: metFORMIN 500 MG TAB PO SCH ×2 (09:43→17:42)
[2018-10-04] MEDS: CARVEDILOL 12.5 MG TAB PO SCH ×2 (09:43→17:42)
[2018-10-04] MEDS: ASPIRIN 81 MG PO SCH (09:44)
[2018-10-04] MEDS: cloNIDine HCL 0.2 MG TAB PO SCH ×2 (09:44→23:49)
[2018-10-04] MEDS: Dapagliflozin Propanediol [Farxiga] 10 MG PO SCH (09:44)
[2018-10-04] MEDS: LINAGLIPTIN 5 MG TABLET PO SCH (10:18)
[2018-10-04] MEDS: PIOGLITAZONE 15 MG TAB PO SCH (10:18)
[2018-10-04] MEDS: INSULIN DETEMIR 100 UNIT/ML 10 ML VIAL SQ SCH (10:18)
[2018-10-04 10:20] LABS: T4, Free (Free Thyroxine) 1.24 ng/dL (0.78-2.19)
[2018-10-04 11:58] LABS: Glucose,Whole Blood 170 mg/dL (75-99)
--- NOTE | 2018-10-04 13:31 | ECHOF ---
Referral Reason:chest pain MEASUREMENTS -------- HEIGHT: 175.3 cm WEIGHT: 133.8 kg BP: 100/65 RVIDd: 3.6 cm (< 3.3) IVSd: 1.4 cm (0.6 - 1.1) LVIDd: 4.0 cm (3.9 - 5.3) LVPWd: 1.1 cm (0.6 - 1.1) IVSs: 1.8 cm LVIDs: 3.0 cm LVPWs: 1.1 cm LA Diam: 3.6 cm (2.7 - 3.8) Ao Diam: 3.3 cm (2.0 - 3.7) AV Cusp: 1.4 cm (1.5 - 2.6) LA Diam: 3.8 cm (2.7 - 3.8) MV EXCURSION: 11.128 mm (> 18.000) MV EF SLOPE: 63 mm/s (70 - 150) EPSS: 0.7 cm MV E Jonas: 0.41 m/s MV DecT: 227 ms MV A Jonas: 0.70 m/s MV E/A Ratio: 0.58 RAP: 5.00 mmHg RVSP: 15.03 mmHg FINDINGS -------- Sinus rhythm. This was a technically adequate study. Morbid Obesity The left ventricular size is normal. There is moderate concentric left ventricular hypertrophy. O verall left ventricular systolic function is normal with, an EF between 55 - 60 %. The right ventricle is mildly enlarged. The left atrial size is normal. The right atrial size is normal. There is mild aortic valve sclerosis. There is no evidence of aortic regurgitation. Mild mitral annular calcification present. Mild mitral regurgitation is present. Mild tricuspid regurgitation present. There is no evidence of pulmonary hypertension. The right v entricular systolic pressure, as measured by Doppler, is 15.03mmHg. There is no pulmonic regurgitation present. The aortic root size is normal. There is no pericardial effusion. CONCLUSIONS -------- 1. Sinus rhythm. 2. This was a technically adequate study. 3. Morbid Obesity 4. The left ventricular size is normal. 5. There is moderate concentric left ventricular hypertrophy. 6. Overall left ventricular systolic function is normal with, an EF between 55 - 60 %. 7. The right ventricle is mildly enlarged. 8. The left atrial size is normal. 9. There is mild aortic valve sclerosis. 10. Mild mitral annular calcification present. 11. Mild mitral regurgitation is present. 12. Mild tricuspid regurgitation present. 13. There is no evidence of pulmonary hypertension. 14. There is no pulmonic regurgitation present. 15. The aortic root size is normal. 16. There is no pericardial effusion. TRAIN OPERATOR: Enid Ma RDCS
--- NOTE | 2018-10-04 15:58 | P.PN ---
Subjective Progress Note Date: 10/04/18 Principal diagnosis: #1 atypical chest pain with normal EKG and normal troponin. Seen by cardiology #2 compression fracture T6 with inability to stand up without pain, dysfunction There is a dictation on the progress note date of service 10/04/[address] Phu Grace [facility] Attending physician Dr. Valentino Hart. Patient seen and examined stated that his pain could not be tolerated if he stand up and the pain medication helpful only when he is laying down. Patient went for the MRI of the spine with and without contrast, was not done because of patient 8 and the MRI table could not handle that his weight. We will substitute. His CT of the thoracic spine with contrast, and consultation of the spine surgeon Dr. Khoury for evaluation and treatment. Cardiology team see the patient and the they continued the heparin. An echocardiogram showed that he has normal ejection fraction with the chest pain described as typical chest pain. His laboratory was also reviewed today with the white count WBC 8.3 the hemoglobin is 12.4 hematocrit 41 his platelet count 236 he is on heparin drip and was monitored his chemistry indicating that sodium 139 potassium 4.7 chloride 108 carbon dioxide 21 BUN of 20 creatinine 1.18 and down his on blood sugar 187 with the underlying diabetes his hemoglobin A1c was 8.5 on admission. His magnesium 1.9 and his bilirubin total 0.5 AST and healthy was below the normal range however no evidence of liver abnormalities his troponin is less than 0.012 and his protein 7.6 and albumin 3.8. On that lipid profile indicating triglyceride 182 total cholesterol 112 HCl 28 and the underlying layers and lipase is normal thyroid was TSH was 0.446. Vital sign indicating the temperature 90.9 this morning 77 heart rate and regular his respiratory rate 18 his blood pressure 128/87 with a mean pressure is 100. Gen. exam is not changes excepted that the pain still in his back and could not stand up with the pain is intolerable. His chest is clear no wheezes no rhonchi 's no chest pain, heart was regular sinus rhythm compensated the abdomen is soft positive bowel sounds no organ enlargement. Extremities no edema and positive pulses. Assessment and plan Atypical chest pain normal EKG and cardiac panel seen by the cardiology. T6 compression fracture Pain with the standing position. Elevated when he is laying down Plan to have computed tomography scan with contrast of the thoracic spine with the attention of the T6. We have understanding of its I did talk to the water restoration technician. As well as the MRI could not be done. We'll consult orthopedic spine surgeon to evaluate as well. Patient started on [place] 5/325 every 6 hour when necessary as the current medication is not helping the pain. Objective - Vital Signs Vital signs: Vital Signs Temp 99.0 F 10/04/18 12:00 Pulse 77 10/04/18 12:00 Resp 18 10/04/18 12:00 BP 104/72 10/04/18 12:00 Pulse Ox 97 10/04/18 12:00 Intake & Output 10/03/18 10/04/18 10/04/18 18:59 06:59 18:59 Intake Total 146.333 Balance 146.333 Weight 131.088 kg 134.1 kg Intake: Intake, IV Titration 146.333 Amount Heparin Sod,Pork in 0.45% 146.333 NaCl 25,000 unit In 0.45 % NaCl 1 500ml.bag @ 7.63 UNITS/KG/HR 20 mls/hr IV .Q24H [facility] Rx#:[id number] Other: Voiding Method Toilet # Voids 1 - Labs CBC & Chem 7: 10/04/18 07:52 10/04/18 07:52 Labs: Abnormal Lab Results - Last 24 Hours (Table) 10/03/18 10/03/18 10/03/18 Range/Units 20:00 20:00 23:36 Hgb (13.0-17.5) gm/dL MCHC (31.0-37.0) g/dL APTT (22.0-30.0) sec Chloride (98-107) mmol/L Carbon Dioxide (22-30) mmol/L Glucose (74-99) mg/dL POC Glucose (mg/dL) (75-99) mg/dL Hemoglobin A1c 8.5 H (4.0-6.0) % Total Creatine Kinase 44 L (55-170) U/L Triglycerides (<150) mg/dL HDL Cholesterol (40-60) mg/dL TSH (0.465-4.680) mIU/L Ur Specific [place] 1.036 H (1.001-1.035) Urine Glucose (UA) 4+ H (Negative) 10/04/18 10/04/18 10/04/18 Range/Units 01:06 01:06 06:55 Hgb (13.0-17.5) gm/dL MCHC (31.0-37.0) g/dL APTT 37.5 H (22.0-30.0) sec Chloride (98-107) mmol/L Carbon Dioxide (22-30) mmol/L Glucose (74-99) mg/dL POC Glucose (mg/dL) 203 H (75-99) mg/dL Hemoglobin A1c (4.0-6.0) % Total Creatine Kinase 34 L (55-170) U/L Triglycerides (<150) mg/dL HDL Cholesterol (40-60) mg/dL TSH (0.465-4.680) mIU/L Ur Specific [place] (1.001-1.035) Urine Glucose (UA) (Negative) 10/04/18 10/04/18 10/04/18 Range/Units 07:52 07:52 07:52 Hgb 12.4 L (13.0-17.5) gm/dL MCHC 30.4 L (31.0-37.0) g/dL APTT (22.0-30.0) sec Chloride 108 H (98-107) mmol/L Carbon Dioxide 21 L (22-30) mmol/L Glucose 187 H (74-99) mg/dL POC Glucose (mg/dL) (75-99) mg/dL Hemoglobin A1c (4.0-6.0) % Total Creatine Kinase (55-170) U/L Triglycerides 182 H (<150) mg/dL HDL Cholesterol 28 L (40-60) mg/dL TSH 0.446 L (0.465-4.680) mIU/L Ur Specific [place] (1.001-1.035) Urine Glucose (UA) (Negative) 10/04/18 10/04/18 Range/Units 07:52 11:47 Hgb (13.0-17.5) gm/dL MCHC (31.0-37.0) g/dL APTT 47.7 H (22.0-30.0) sec Chloride (98-107) mmol/L Carbon Dioxide (22-30) mmol/L Glucose (74-99) mg/dL POC Glucose (mg/dL) 170 H (75-99) mg/dL Hemoglobin A1c (4.0-6.0) % Total Creatine Kinase (55-170) U/L Triglycerides (<150) mg/dL HDL Cholesterol (40-60) mg/dL TSH (0.465-4.680) mIU/L Ur Specific [place] (1.001-1.035) Urine Glucose (UA) (Negative)
--- NOTE | 2018-10-04 16:46 | CT ---
CT thoracic spine HISTORY: Back pain Correlation with patient's CT angiogram of the chest 10/03/2018 There is a compression deformity noted at the seventh thoracic vertebral body with loss of height leonie trally of approximately 25-50%, there is a kyphosis centered at this level, there is only minimal ret ropulsion, no significant spinal stenosis. Vacuum phenomenon present at the intervertebral discs. The re is multilevel spondylosis. There is a spinal curvature present. IMPRESSION: T7 compression fracture. Bone scan may be of benefit.
[2018-10-04 16:49] LABS: Glucose,Whole Blood 126 mg/dL (75-99)
[2018-10-04] MEDS: PANTOPRAZOLE 40 MG TABLET PO SCH (17:42)
[2018-10-04 20:33] LABS: Glucose,Whole Blood 126 mg/dL (75-99)
[2018-10-05] MEDS: NITROGLYCERIN OINT 1 INCH/GM PACKET TOPICAL SCH ×4 (00:57→23:20)
[2018-10-05 02:13] LABS: Glucose,Whole Blood 149 mg/dL (75-99)
[2018-10-05] MEDS: cloNIDine HCL 0.2 MG TAB PO SCH (04:32)
[2018-10-05] MEDS: HYDROcodone/APAP 5-325MG 1 EACH TAB PO PRN ×3 (04:34→20:28)
[2018-10-05 07:10] LABS: Glucose,Whole Blood 134 mg/dL (75-99)
[2018-10-05] MEDS: ASPIRIN 81 MG PO SCH (08:25)
[2018-10-05] MEDS: metFORMIN 500 MG TAB PO SCH ×2 (08:25→17:11)
[2018-10-05] MEDS: LISINOPRIL 20 MG TAB PO SCH (08:25)
[2018-10-05] MEDS: CARVEDILOL 12.5 MG TAB PO SCH ×2 (08:25→17:10)
[2018-10-05] MEDS: PANTOPRAZOLE 40 MG TABLET PO SCH (08:25)
[2018-10-05] MEDS: ATORVASTATIN 10 MG TAB PO SCH (08:25)
[2018-10-05] MEDS: amLODIPine 5 MG TAB PO SCH (08:26)
[2018-10-05] MEDS: LINAGLIPTIN 5 MG TABLET PO SCH (08:26)
[2018-10-05] MEDS: Dapagliflozin Propanediol [Farxiga] 10 MG PO SCH (08:26)
[2018-10-05] MEDS: INSULIN DETEMIR 100 UNIT/ML 10 ML VIAL SQ SCH (08:26)
[2018-10-05] MEDS: PIOGLITAZONE 15 MG TAB PO SCH (08:29)
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
[2018-10-05 12:20] LABS: Glucose,Whole Blood 158 mg/dL (75-99)
--- NOTE | 2018-10-05 14:26 | PN ---
PROGRESS NOTE 72-year-old white male, . The patient admitted initially on observation and subsequently changed to full admission inpatient. HE IS A FULL CODE. NEW DATA: His height is 5 feet 9 inches, weight 99.8 kg, BSA 2.15 m2, BMI 32.5 kg/m2. HISTORY: The patient presented initially to the emergency room physician with the pain radiated from the back to the lower ribs to the center on his left side and he had a previous fall before and subsequently they thought that he had unstable angina and they called Cardiology, however, subsequently they did the laboratories indicating normal EKGs comparing with the previous one and patient had history of myocardial infarction in the past, inferior. Subsequently, he had a echocardiogram and showing the ejection fraction 50-55. No acute events. With the rounds, the patient cleared from a cardiac status. However, at the same time when they examined him in the ER, found that he had the pain associated with the T6 and at this time we did request MRI of the thoracic spine and was denied because his weight more than the table can carry. Subsequently, we requested a dedicated CT scan for the thoracic spine because at that time they called me back and they stated that the patient had a CT scan of the chest angiogram and he had no PE but this testing showed that he had T6 compression fracture. However, we do not know the age of the compression and they recommended a bone scan. We requested that they call us again from the radiology, indicated that the radiologist will look at the CT of the chest and localize more in detail and they called us again and they said that it is T7 not T6. Meanwhile, the patient has fluctuating blood pressure and had hypotension for the man is a big man and his blood pressure was 100/66, and especially in the morning for a big man as he had history also of hypertension and at that time, we did review the medication and the medication adjusted to accommodate the blood pressure and his feeling of generalized weakness. As the lisinopril decreased to 10 mg twice a day and instead of 20 as well as his carvedilol was decreased to 6.25 mg from 12.5. The amlodipine decreased to 5 mg from 10 mg. The patient is diabetic and his blood sugar has been fairly controlled with the blood sugar POC and that was indicating that blood sugar today 158, 134, 149, 126, 126 backward to 11,318 from March 12, 2018, which is fairly well controlled. In regard of his back the patient stated that he could not stand up because of the pain is more than 9-10 and then at this time we did consult Dr. Solano, the spine, and subsequently the sent the PA her name is Edy Cote and she ordered for him spine brace with no plan for surgery and a TLSO for compression fracture and as the change of the site was T7 at last of the radiology opinion after the reviewing the CT angiogram of the chest. On the associated laboratories, his last laboratory was yesterday. He has normal white count 8.3. His hemoglobin was 12.4, and he was on heparin drip for the Cardiology and apparently is discontinued. His chemistry profile was indicating that he had hypertriglyceridemia with the LDL 48. The patient currently released from the cardiac evaluation and treatment and subsequently he will be followed by his machine stapler. Meanwhile, we removed the heparin and we will be placing back the Lovenox once a day for DVT prophylaxis until the patient discharged from home and receives rehabilitation. His rehabilitation was ordered as well. The patient is waiting for the brace, which probably because of Saturday will not be available and also continued rehab as outpatient. Dr. Hart will be following the patient tomorrow and continuing the care. Meanwhile, currently the examination at bedside: HEENT was negative and neck was supple. Chest was clear to auscultation and percussion. Heart was regular sinus rhythm and the abdomen was soft, nontender, positive bowel sounds and extremities no edema and positive pulses. He has still the discomfort severe when he stands up and tries to walk with inability to walk without the brace and hopefully the rehabilitation check how he can walking before discharge. FINAL IMPRESSION: 1. Acute compression fracture of the T7 with gradual pain progression and to the limit inability to stand or walk without severe pain. 2. Pain control. 3. Underlying history of coronary atherosclerosis with a inferior wall myocardial infarction with normal ejection fraction with the underlying valvular heart disease. 4. Diabetes mellitus type 2 on oral hypoglycemic agent with fairly well controlled. 5. Underlying hypertension with hypertensive heart disease and currently on medication and he is in the low blood pressure side and adjusted medication to be normotensive without having hypotension. 6. Coronary artery disease. 7. Atypical chest pain and that was mainly from the spine in the T7 compression fracture, which is considered acute to me. Note the patient had cardiac catheterization in 01/05/2009, and the that was done at that time by Dr. Tiffanie Glass who has been retired. They found the conclusion that they found that a 50-60 percent stenosis of the 1st diagonal branch with normal left anterior descending coronary artery and normal circumflex coronary artery and normal right coronary artery and normal left ventricular function and at that time was ordered to continue the medical therapy. Also at that time, patient was a sinus rhythm and he had aortic and mitral and tricuspid was normal and he has an ejection fraction measured at that time by 50%. Dr. Hart will continue care tomorrow. MMODL / IJN: [id number] /
[2018-10-05 17:39] LABS: Glucose,Whole Blood 83 mg/dL (75-99)
[2018-10-05 19:51] LABS: Glucose,Whole Blood 129 mg/dL (75-99)
[2018-10-05] MEDS: LISINOPRIL 10 MG TAB PO SCH (20:28)
[2018-10-05] MEDS: cloNIDine HCL 0.1 MG TAB PO SCH (20:28)
[2018-10-06 01:58] LABS: Glucose,Whole Blood 127 mg/dL (75-99)
[2018-10-06] MEDS: NITROGLYCERIN OINT 1 INCH/GM PACKET TOPICAL SCH ×4 (04:57→23:19)
[2018-10-06] MEDS: HYDROcodone/APAP 5-325MG 1 EACH TAB PO PRN ×3 (05:17→18:49)
[2018-10-06 07:04] LABS: Glucose,Whole Blood 97 mg/dL (75-99)
[2018-10-06 07:32] VITALS: RESP 16
--- NOTE | 2018-10-06 08:34 | P.PN ---
Progress Note - Text Progress Note Date: 10/06/18 Patient seen and examined the bedside for follow-up evaluation for his known T7 compression fracture deformity found on CT of the thoracic spine. Patient states he continues have some pain in his spine that is exacerbated with movements of his spine. His pain continues to be well controlled while lying in bed. He denies any lower extremity weakness or radiculopathy bilaterally. He is currently lying comfortably on his left side. A prescription for a [employer] TLSO brace was written yesterday. This brace has not yet been delivered but the patient states that it is scheduled be delivered today. He has no other complaints at bedside. Patient does admit to diabetes with neuropathy in the feet bilaterally. He does have sensation in his legs. Patient is being seen by medicine and cardiology. Physical exam: Patient is awake, alert, and oriented 3 Vital signs stable Good chest excursion with deep inspiration and expiration Examination of lumbar spine reveals skin is intact with no abrasions, lacerations, or bruises; no erythema, purulence or signs of infection No significant pain with palpation over the thoracic spine Dorsiflexion, plantarflexion, and extensor hallucis longus positive sustained bilaterally Lower extremity strength 5/5 bilaterally Evidence of skin changes over the anterior lower extremities bilaterally Decreased sensation of the bilateral feet with palpation No signs or symptoms of DVT; no calf pain Pertinent studies: CT of the thoracic spine taken on 10/04/2018: T7 compression fracture deformity with central high loss of approximately 25-50% with kyphosis centered at this level without evidence of significant spinal canal stenosis; multilevel spondylosis Assessment: Acute traumatic T7 compression fracture deformity status post fall Thoracic back pain Thoracic spondylosis Diabetic neuropathy Diabetes2 History of hypertension with hypertensive heart disease History of coronary artery disease Plan: 1. We will continue with conservative treatment in regards to his acute traumatic T7 compression fracture deformity. A prescription for a Spinomed TLSO brace has been written and provided to case management. This brace is scheduled to be delivered today. Once this brace has been delivered and fitted appropriately, patient should wear this brace while sitting upright at greater than 45, during increase activities, and during ambulation. He does not have to wear this brace while lying in bed or while bathing. He should avoid excessive bending, twisting, and lifting. He should avoid lifting greater than 10 pounds. Once this brace is delivered and fitted appropriately, patient is clear for discharge from orthopedic spine standpoint. Following discharge, patient may follow-up with Dhaval Webber PA-C or Dr. Bayron Solano at [facility] in approximately 2 weeks for further evaluation. 2. Continue pain control with medications as prescribed 3. Medicine and cardiology to continue following the patient for his other medical diagnoses 4. Patient has been discussed in detail with Dr. Bayron Solano and he agrees with this plan
[2018-10-06] MEDS: CARVEDILOL 12.5 MG TAB PO SCH ×2 (11:23→18:48)
[2018-10-06] MEDS: LISINOPRIL 10 MG TAB PO SCH ×2 (11:25→20:27)
[2018-10-06] MEDS: cloNIDine HCL 0.1 MG TAB PO SCH ×2 (11:25→20:27)
[2018-10-06] MEDS: ASPIRIN 81 MG PO SCH (11:25)
[2018-10-06] MEDS: PANTOPRAZOLE 40 MG TABLET PO SCH (11:26)
[2018-10-06] MEDS: LINAGLIPTIN 5 MG TABLET PO SCH (11:26)
[2018-10-06] MEDS: amLODIPine 5 MG TAB PO SCH (11:26)
[2018-10-06] MEDS: ATORVASTATIN 10 MG TAB PO SCH (11:26)
[2018-10-06] MEDS: metFORMIN 500 MG TAB PO SCH ×2 (11:26→18:48)
--- NOTE | 2018-10-06 11:27 | PN ---
PROGRESS NOTE Rao is admitted to hospital with musculoskeletal chest pain and Cardiology had been consulted for the same. The consultation has been done yesterday. An echocardiogram showed normal LV function. At the time of my evaluation this morning, he does not have any chest pain. Has upper back pain, which is being worked up by primary care physician. His CTA is negative for pulmonary embolism. PHYSICAL EXAMINATION: On exam, comfortable at rest. Vital signs are stable. Chest exam reveals good air entry bilaterally. Heart exam reveals first and second heart sounds. No gallop. Examination of the extremities did not reveal any edema. Peripheral pulses are felt. ASSESSMENT: Chest pain atypical probably musculoskeletal. No further cardiac intervention at this time. Please arrange followup with Dr. Angel the wire products inspector who had seen him initially for a possible outpatient stress test. Workup of the musculoskeletal pain is as per primary care physician. I am going to follow the patient on an as-needed basis. MMODL / IJN: [id number] /
[2018-10-06] MEDS: Dapagliflozin Propanediol [Farxiga] 10 MG PO SCH (11:28)
[2018-10-06] MEDS: INSULIN DETEMIR 100 UNIT/ML 10 ML VIAL SQ SCH (11:28)
[2018-10-06 11:57] LABS: Glucose,Whole Blood 149 mg/dL (75-99)
[2018-10-06] MEDS: PIOGLITAZONE 15 MG TAB PO SCH (11:58)
--- NOTE | 2018-10-06 17:13 | PN ---
PROGRESS NOTE DATE OF SERVICE: 10/06/2018 This is a 72-year-old -[place] male who was brought to the emergency room with upper back pain radiating to the ribs. Patient had a history of fall about 2 to 3 weeks ago. Patient also had a history of coronary artery disease. He has a CT angio in the ER and it was negative for any pulmonary embolism. The patient was admitted to the hospital for further evaluation and treatment. He had a CT of the spine which showed a compression fracture at T7. He was also seen by [facility] in consultation. They felt that the patient's pain is related to any cardiac origin, but it could be musculoskeletal because of the compression fracture of the spine. Orthopedic consultation was obtained and the patient was seen by Dr. Solano. He recommended conservative management brace. MMODL / IJN: [id number] /
[2018-10-06 17:32] LABS: Glucose,Whole Blood 144 mg/dL (75-99)
[2018-10-06 20:08] LABS: Glucose,Whole Blood 124 mg/dL (75-99)
[2018-10-07 02:31] LABS: Glucose,Whole Blood 90 mg/dL (75-99)
[2018-10-07] MEDS: NITROGLYCERIN OINT 1 INCH/GM PACKET TOPICAL SCH ×2 (06:02→08:28)
[2018-10-07 06:57] LABS: Glucose,Whole Blood 94 mg/dL (75-99)
[2018-10-07 07:23] VITALS: BP 135/81; PULSE 73; TEMP 98.4
[2018-10-07] MEDS: INSULIN DETEMIR 100 UNIT/ML 10 ML VIAL SQ SCH (08:22)
[2018-10-07] MEDS: metFORMIN 500 MG TAB PO SCH (08:26)
[2018-10-07] MEDS: LISINOPRIL 10 MG TAB PO SCH (08:26)
[2018-10-07] MEDS: ATORVASTATIN 10 MG TAB PO SCH (08:27)
[2018-10-07] MEDS: PANTOPRAZOLE 40 MG TABLET PO SCH (08:27)
[2018-10-07] MEDS: LINAGLIPTIN 5 MG TABLET PO SCH (08:27)
[2018-10-07] MEDS: ASPIRIN 81 MG PO SCH (08:27)
[2018-10-07] MEDS: amLODIPine 5 MG TAB PO SCH (08:27)
[2018-10-07] MEDS: CARVEDILOL 12.5 MG TAB PO SCH (08:27)
[2018-10-07] MEDS: cloNIDine HCL 0.1 MG TAB PO SCH (08:27)
[2018-10-07] MEDS: PIOGLITAZONE 15 MG TAB PO SCH (08:27)
[2018-10-07] MEDS: Dapagliflozin Propanediol [Farxiga] 10 MG PO SCH (08:28)
[2018-10-07 11:44] LABS: Glucose,Whole Blood 91 mg/dL (75-99)
--- NOTE | 2018-10-10 12:04 | CDI ---
Documentation Clarification Form Date: 10/10/2018 12:00:14 PM From: Kamla Vargas Phone: If questions call Josephine Whitman at Admit Date: 10/05/2018 11:20:00 AM Patient Name: Rao Cutler Visit Number: [id number] Discharge Date: 10/07/2018 ATTENTION: The Clinical Documentation Specialists (CDI) and [facility] Coding Staff appreciate your assistance in clarifying documentation. Please respond to the clarification below the line at the bottom and electronically sign. The CDI & [facility] Coding staff will review the response and follow-up if needed. Please note: Queries are made part of the Legal Health Record. If you have any questions, please contact the author of this message via ITS. Valentino Macedo MD Patient has a documented BMI of 42.7 Clinical Indicators: Patients weight is 131.088 kg Patients height is 5 feet 9 inches Calculated BMI is 42.7 In order to capture the severity of condition associated with patient BMI of 42.7, a clinical diagnoses needs to be documented by the physician. Please clarify: Obese Morbidly obese Other, please specify ____ Unable to determine See Discharge summary ZACHARY/ana SEVILLA
--- NOTE | 2018-11-17 00:18 | DS ---
DISCHARGE SUMMARY DATE OF ADMISSION: 10/03/2018. DATE OF DISCHARGE: 10/07/2018. DISCHARGE DIAGNOSES: 1. Chest and back pain. 2. Acute traumatic T7 compression fracture. 3. Thoracic back pain. 4. Diabetes mellitus type 2. 5. Hypertensive cardiovascular disease. 6. History of coronary artery disease. 7. Morbid obesity. 8. Sleep apnea. This is a 72-year-old male who was brought to the emergency room with upper back pain radiating to the ribs. The patient had a history of fall about 2-3 weeks prior to coming to the ER, the patient also had a history of coronary artery disease and patient was admitted to the hospital for further evaluation and treatment. For details of the physical examination at the time of admission, please refer to the history and physical. Because the patient was seen in the hospital by wind project manager and because he has a history of coronary artery disease and a wind project manager felt that his pain is not related to any cardiac origin and the patient had a CT scan of the thoracic spine, which showed a compression fracture of T7 vertebra. Dr. Solano was consulted and he has evaluated him from a surgical point of correction from surgical standpoint and the pain was recurrent and considered to be musculoskeletal pain because of the compression fracture and Dr. Solano recommended conservative management and the pain was controlled fairly well in the hospital with pain medications. Dr. Solano recommended a spinal brace. The patient's symptoms improved and the patient was then discharged home on 10/07/2018. He was advised to continue: 1. Aspirin 81 mg daily p.o. daily. 2. Coreg 6.25 mg p.o. b.i.d. 3. Lisinopril 10 mg b.i.d. 4. Norvasc 5 mg daily. 5. Clonidine 0.1 mg b.i.d. 6. He was also advised to continue his previous home medications. Insulin, Levemir, Farxiga, Actos as recommended by the communications billing analyst and also he will continue simvastatin 20 mg p.o. daily. Spironolactone 25 mg daily, Glucophage 1000 mg b.i.d. Januvia 100 mg p.o. daily and tramadol 50 mg p.o. every 8 evaluate p.r.n. for pain. 7. He will be following with Dr. Solano and he will be seen in my office for followup in a week's time. MMODL / IJN: [id number] /
== END 2018-10-07 14:37 | disposition home or self-care (01) | DRG 552 ==
LOC: EC 12:21 → 1SOBS 18:10 → 4SSUR 10-04 18:26 → OBSVTOIN 10-05 11:20
PROVIDERS: ADMIT Internal Medicine; ATTEND Internal Medicine
DX: S22.060A Wedge compression fracture of T7-T8 vertebra, initial encounter for closed fracture (principal); E78.1 Pure hyperglyceridemia; E78.5 Hyperlipidemia, unspecified; G47.30 Sleep apnea, unspecified; E66.01 Morbid (severe) obesity due to excess calories; Z68.41 Body mass index [BMI] 40.0-44.9, adult; I25.10 Atherosclerotic heart disease of native coronary artery without angina pectoris; I25.2 Old myocardial infarction; K21.9 Gastro-esophageal reflux disease without esophagitis; K44.9 Diaphragmatic hernia without obstruction or gangrene; M47.814 Spondylosis without myelopathy or radiculopathy, thoracic region; N40.0 Benign prostatic hyperplasia without lower urinary tract symptoms; N62 Hypertrophy of breast; E11.42 Type 2 diabetes mellitus with diabetic polyneuropathy; L40.9 Psoriasis, unspecified; I11.9 Hypertensive heart disease without heart failure; I35.8 Other nonrheumatic aortic valve disorders; N28.1 Cyst of kidney, acquired; E04.9 Nontoxic goiter, unspecified; I87.8 Other specified disorders of veins; M54.9 Dorsalgia, unspecified; G89.29 Other chronic pain; I95.9 Hypotension, unspecified; Z88.1 Allergy status to other antibiotic agents; Z79.4 Long term (current) use of insulin; W06.XXXA Fall from bed, initial encounter; Z79.899 Other long term (current) drug therapy; Z86.79 Personal history of other diseases of the circulatory system; Z98.42 Cataract extraction status, left eye; Z98.41 Cataract extraction status, right eye; Z96.1 Presence of intraocular lens; Z82.49 Family history of ischemic heart disease and other diseases of the circulatory system; Z83.79 Family history of other diseases of the digestive system; Z80.42 Family history of malignant neoplasm of prostate; Z86.69 Personal history of other diseases of the nervous system and sense organs; Z91.81 History of falling
CPT/HCPCS: 36415; 71275; 72129; 80048; 80053; 80061; 81003; 82150; 82550; 82553; 83036; 83690; 83735; 83880; 84439; 84443; 84484; 85025; 85610; 85730; 93005; 93306; 94760; 96374; 99285

== ENCOUNTER → 2018-11-22 | Outpatient (CLI) | payer MEDICARE, OTHER ==
--- NOTE | 2018-11-23 11:06 | MR ---
EXAMINATION TYPE: MR brain wo/w con DATE OF EXAM: 11/22/2018 COMPARISON: CT brain exams October 30, 2018 and August 21, 2017 HISTORY: Cerebral cysts and brain tumor per order. Abnormal CT per patient. TECHNIQUE: Multiplanar, multisequence images of the brain and brainstem is performed without and with IV contras t, utilizing 13.5 mL intravenous Gadavist . FINDINGS: Diffusion weighted images demonstrate no evidence of a recent infarct or other diffusion ab normality. There is ventricular and sulcal prominence consistent with diffuse cerebral atrophy. There are faint irregular foci of T2 hyperintensity in the deep and periventricular white matter. Findings most likely on basis of product of chronic small vessel ischemic change. There is prominent CSF spac e involving the anterior aspect of the left middle cranial fossa measuring roughly 4.0 cm transversel y by 3.1 cm AP diameter axial image 11 x 3.5 cm precarinal lymph node diameter sagittal image 6. Find ings are consistent with a arachnoid cyst. Smaller arachnoid cyst anterior medial right middle crania l fossa axial image 11. Local mass effect from both lesions is present. Midline structures redemonstrate somewhat empty sella appearance. The craniocervical junction appear s within normal limits. Post contrast images demonstrate no abnormal enhancement. The dural venous s inuses appear patent. The visualized sinuses are clear and the globes are intact. IMPRESSION: Mild generalized atrophy and chronic small vessel ischemic change identified. There are b ilateral arachnoid cysts left larger than right redemonstrated with local mass effect.
== END | disposition home or self-care (01) ==
LOC: RADMRIMAIN 11:23
PROVIDERS: ATTEND Psychiatry & Neurology Neurology
DX: G93.0 Cerebral cysts (principal); I67.82 Cerebral ischemia; G31.9 Degenerative disease of nervous system, unspecified; C71.9 Malignant neoplasm of brain, unspecified
CPT/HCPCS: 70553; A9585

== ENCOUNTER → 2019-02-17 | Outpatient (CLI) | payer MEDICARE, OTHER ==
[2019-02-17 13:08] LABS: HCT 43.7 % (39.0-53.0); HGB 13.4 gm/dL (13.0-17.5); Hypochromasia Slight; MCH 25.9 pg (25.0-35.0); MCHC 30.7 g/dL (31.0-37.0); MCV 84.3 fL (80.0-100.0); Mean Platelet Volume 7.5; Platelet Count 320 k/uL (150-450); RBC 5.18 m/uL (4.30-5.90)
[2019-02-17 19:04] LABS: Albumin 4.2 g/dL (3.80-4.90); Albumin/Globulin Ratio 1.56 (1.60-3.17); Anion Gap 11.5 mmol/L (4.00-12.00); Calcium 9.5 mg/dL (8.7-10.3); Carbon Dioxide 23.5 mmol/L (21.6-31.8); Globulin 2.7 g/dL (1.6-3.3); LDL Cholesterol,Calculated 77.6 mg/dL (0.0-131.0); Potassium 4.2 mmol/L (3.5-5.5); Total Bilirubin 0.5 mg/dL (0.3-1.2); Total Protein 6.9 g/dL (6.2-8.2); VLDL Calculation 18.4 mg/dL (5.00-40.00)
[2019-02-17 19:11] LABS: T4, Free (Free Thyroxine) 1.2 ng/dL (0.80-1.80)
== END ==
LOC: LABWHC1 12:08
PROVIDERS: ATTEND Internal Medicine
DX: Z00.00 Encounter for general adult medical examination without abnormal findings (principal); E11.9 Type 2 diabetes mellitus without complications; N40.0 Benign prostatic hyperplasia without lower urinary tract symptoms; I11.9 Hypertensive heart disease without heart failure; K21.0 Gastro-esophageal reflux disease with esophagitis
CPT/HCPCS: 36415; 80053; 80061; 84439; 84443; 85027

== ENCOUNTER 2019-07-22 08:40 | Observation (INO) | payer MEDICARE, OTHER ==
[2019-07-22] MEDS ORDERED: FAMOTIDINE 20 MG/2 ML VIAL IV STA (09:31)
[2019-07-22] MEDS ORDERED: NITROGLYCERIN OINT 1 INCH/GM PACKET TOPICAL STA (09:31)
[2019-07-22] MEDS ORDERED: ASPIRIN 81 MG PO STA (09:31)
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
--- NOTE | 2019-07-22 09:55 | XR ---
EXAMINATION TYPE: XR chest 2V DATE OF EXAM: 07/22/2019 COMPARISON: NONE HISTORY: Shortness of breath TECHNIQUE: Frontal and lateral views of the chest are obtained. FINDINGS: Scattered senescent parenchymal changes noted. Hyperinflation compatible with COPD. No evidence for infiltrate. No evidence for atelectasis. Heart size is stable. Mediastinal structures are stable and grossly unremarkable. No evidence for hilar prominence. Degenerative changes dorsal spine. IMPRESSION: 1. No evidence for acute pulmonary disease.
[2019-07-22 09:59] LABS: Basophils % (A) 1 %; Eosinophils # (A) 0.6 k/uL (0-0.7); Eosinophils % (A) 8 %; HCT 38.5 % (39.0-53.0); HGB 12.4 gm/dL (13.0-17.5); Lymphocytes # (A) 1.5 k/uL (1.0-4.8); Lymphocytes % (A) 19 %; MCH 26.7 pg (25.0-35.0); MCHC 32.3 g/dL (31.0-37.0); MCV 82.6 fL (80.0-100.0); Mean Platelet Volume 8.5; Monocytes # (A) 0.4 k/uL (0-1.0); Monocytes % (A) 5 %; Neutrophils # (A) 5.3 k/uL (1.3-7.7); Neutrophils % (A) 66 %; Platelet Count 265 k/uL (150-450); RBC 4.66 m/uL (4.30-5.90); RDW 15.5 % (11.5-15.5); WBC 8.1 k/uL (3.8-10.6)
[2019-07-22 10:14] LABS: Albumin 3.7 g/dL (3.5-5.0); Calcium 9.4 mg/dL (8.4-10.2); Partial Thromboplastin Time 26.4 sec (22.0-30.0); Potassium 5.2 mmol/L (3.5-5.1); Prothrombin Time 10.3 sec (9.0-12.0); Total Bilirubin 0.3 mg/dL (0.2-1.3)
--- NOTE | 2019-07-22 10:28 | XR ---
Abdomen HISTORY: Pain Frontal view of the abdomen submitted on 2 images Compared to prior abdomen 05/05/2012 There are overlying cardiac leads. Surgical clips are again noted in the right lower quadrant. Probab le phleboliths are scattered within the pelvis. Degenerative disc changes are present in the visualiz ed spine. No pneumoperitoneum or bowel obstruction. IMPRESSION: No acute abnormality.
[2019-07-22 11:08] LABS: D-Dimer 0.84 mg/L FEU (<0.60)
--- NOTE | 2019-07-22 13:00 | CT ---
EXAMINATION TYPE: CT angio thor/abd pel aorta DATE OF EXAM: 07/22/2019 COMPARISON: None HISTORY: Chest pain, Rash and Abdominal pain CT DLP: 2906.8 mGycm CONTRAST: CTA thoracic and abdominal aorta with 3-D reconstruction is performed and without and with IV Contras t, patient injected with 80 ml mL of Isovue 370. Contrast CTA of the thoracic and abdominal aorta was performed from the lung apex through the base of the pelvis. 3-D reconstruction imaging obtained at a separate workstation. A portion of the abdome n is cut off the [id number] limiting evaluation. CT Chest: THORACIC AORTA: There is no evidence for aneurysm. No dissection or mediastinal hematoma. Mild ath eromatous changes are seen. LUNGS: The lungs are clear and free of infiltrate. Basilar scarring or atelectasis noted. No pulmonar y nodule or mass is detected. No pleural effusion or CT evidence of interstitial lung disease. MEDIASTINUM: The heart is not enlarged. No evidence for mediastinal mass or adenopathy. HILAR STRUCTURES: No evidence for mass. No hilar adenopathy is appreciated. OTHER: No significant abnormality. CONTRAST CT ABDOMEN AND PELVIS ABDOMINAL AORTA: No evidence for abdominal aortic aneurysm. No dissection. Iliac vessels are symmet mari and patent. Scattered atheromatous changes seen. LIVER/GB- No significant abnormality is seen. PANCREAS- No significant abnormality is seen. SPLEEN- No significant abnormality is seen. ADRENALS- No significant abnormality is seen. KIDNEYS/BLADDER-right renal cystic change. BOWEL- No Significant abnormality GENITAL ORGANS: No gross abnormality seen. LYMPH NODES- No greater than 1cm abdominal or pelvic lymph nodes are appreciated. OSSEOUS STRUCTURES-grade degenerative change lumbar spine. OTHER- No significant abnormality is seen. IMPRESSION- 1. no evidence for thoracic or abdominal aortic aneurysm or occlusive change. No dissection.
[2019-07-22] MEDS ORDERED: NITROGLYCERIN SL TABS 0.4 MG TAB SUBLINGUAL PRN (13:51)
[2019-07-22 15:08] VITALS: BMI 46.9
[2019-07-22] MEDS ORDERED: PRAMOX-CALAMINE 1-8% LOTION 1 APPLIC/5 ML LOTION TOPICAL PRN (16:08)
[2019-07-22] MEDS ORDERED: FUROSEMIDE 20 MG TAB PO SCH (16:30)
[2019-07-22] MEDS: SODIUM CHLORIDE 0.9% 1,000 ML IV SCH ×2 (16:35→23:04)
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
[2019-07-22] MEDS: cloNIDine HCL 0.1 MG TAB PO SCH ×2 (16:47→20:28)
[2019-07-22] MEDS: ATORVASTATIN 40 MG TAB PO SCH (16:47)
[2019-07-22] MEDS: amLODIPine 10 MG TAB PO SCH (16:47)
[2019-07-22] MEDS: hydrOXYzine HCL 25 MG TAB PO SCH ×2 (16:48→20:28)
[2019-07-22] MEDS: INSULIN ASPART (NovoLOG) 100 UNIT/ML VIAL SQ SCH (16:52)
[2019-07-22 16:54] LABS: Glucose,Whole Blood 142 mg/dL (75-99)
[2019-07-22] MEDS: traMADol 50 MG TAB PO PRN (16:55)
[2019-07-22] MEDS: CARVEDILOL 12.5 MG TAB PO SCH (16:56)
[2019-07-22] MEDS: NITROGLYCERIN OINT 1 INCH/GM PACKET TOPICAL SCH ×2 (18:48→23:33)
[2019-07-22 20:25] LABS: Glucose,Whole Blood 164 mg/dL (75-99)
[2019-07-22] MEDS ORDERED: methylPREDNISolone SOD SUCCI 40 MG/ML 1 ML VIAL IV SCH (21:00)
[2019-07-22] MEDS ORDERED: LISINOPRIL 5 MG TAB PO SCH (21:00)
[2019-07-23] MEDS: NITROGLYCERIN OINT 1 INCH/GM PACKET TOPICAL SCH ×2 (06:07→11:41)
[2019-07-23 06:22] LABS: Basophils % (A) 0 %; Eosinophils # (A) 0.1 k/uL (0-0.7); Eosinophils % (A) 1 %; HCT 45.1 % (39.0-53.0); Hypochromasia Slight; Lymphocytes # (A) 0.5 k/uL (1.0-4.8); Lymphocytes % (A) 6 %; MCHC 31.1 g/dL (31.0-37.0); MCV 83.7 fL (80.0-100.0); Mean Platelet Volume 8.2; Monocytes # (A) 0.2 k/uL (0-1.0); Monocytes % (A) 2 %; Neutrophils # (A) 7.6 k/uL (1.3-7.7); Neutrophils % (A) 90 %; Platelet Count 273 k/uL (150-450); RBC 5.39 m/uL (4.30-5.90); RDW 15.5 % (11.5-15.5); WBC 8.4 k/uL (3.8-10.6)
[2019-07-23 06:32] LABS: Calcium 9.6 mg/dL (8.4-10.2)
[2019-07-23 06:40] LABS: Glucose,Whole Blood 227 mg/dL (75-99)
[2019-07-23 06:48] LABS: Potassium 6.1 mmol/L (3.5-5.1)
[2019-07-23] MEDS ORDERED: SODIUM POLYSTYRENE SULFONATE 15 GM/60 ML BOTTLE PO STA ×2 (06:58→13:52)
[2019-07-23] MEDS ORDERED: INSULIN DETEMIR (LEVEMIR) 100 UNIT/ML SYR SQ SCH ×2 (07:00→21:00)
[2019-07-23] MEDS: traMADol 50 MG TAB PO PRN ×2 (08:02→19:52)
[2019-07-23] MEDS: SODIUM CHLORIDE 0.9% 1,000 ML IV SCH ×2 (08:03→19:38)
[2019-07-23] MEDS ORDERED: PIOGLITAZONE 15 MG TAB PO SCH (09:00)
[2019-07-23] MEDS ORDERED: ASPIRIN 325 MG TAB PO SCH (09:00)
[2019-07-23] MEDS: ASPIRIN 81 MG PO SCH (09:30)
[2019-07-23] MEDS: cloNIDine HCL 0.1 MG TAB PO SCH ×3 (09:30→22:11)
[2019-07-23] MEDS: amLODIPine 10 MG TAB PO SCH (09:31)
[2019-07-23] MEDS: FUROSEMIDE 40 MG TAB PO SCH (09:31)
[2019-07-23] MEDS: CARVEDILOL 12.5 MG TAB PO SCH ×2 (09:31→17:42)
[2019-07-23] MEDS: INSULIN ASPART (NovoLOG) 100 UNIT/ML VIAL SQ SCH ×3 (09:31→17:42)
[2019-07-23] MEDS: ATORVASTATIN 40 MG TAB PO SCH (09:31)
[2019-07-23] MEDS: hydrOXYzine HCL 25 MG TAB PO SCH ×3 (09:31→22:11)
[2019-07-23] MEDS: LINAGLIPTIN 5 MG TABLET PO SCH (09:32)
[2019-07-23 11:47] LABS: Glucose,Whole Blood 270 mg/dL (75-99)
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
[2019-07-23 13:43] LABS: Hemoglobin A1C 9.4 % (4.0-6.0)
[2019-07-23 16:54] LABS: Glucose,Whole Blood 263 mg/dL (75-99)
--- NOTE | 2019-07-23 18:27 | P.PN ---
Subjective Progress Note Date: 07/23/19 (lactic acid elevation 2.3) Principal diagnosis: #1 admitted with chest pain from the ER, with normal EKG and cardiac panel. #2 abnormal sensation of itching in the abdominal and upper chest and burning sensation etiology unknown however the possibility of diabetes mellitus with hyperglycemia with the underlying diabetic neuropathy. #3 hyperkalemia with the potassium was 6 patient treated with Kayexalate with a significant improvement however has not resolved currently potassium 5.4. #4 multiple medication contributing to hyper kalemia i.e. Aldactone, SID inhibitor. #5 hyperglycemia uncontrolled with elevated hemoglobin A1c with multiple oral hypoglycemic agent contributing to the elevation of lactic acid. #6 hypertension currently controlled without multiple medication and we will be discontinuing the amlodipine blood pressure 107/67 with a mean 80. #7 patient currently insulin-dependent and he will be adjusting his insulin to Levemir to be at bedtime 40 units as well as in the morning 20 units, continue SID short-acting insulin NovoLog. #8 patient denied any chest pain or anginal pain, stated was itching intense with no evidence of skin lesion probably associated with the neuropathy currently result with the current treatment. progress note date of service 07/23/2019. Patient currently comfortable no chest pain and advised to ambulate as tolerated his vital signs stable with the blood pressure is progressing the to be downtrend currently 107/67 with a history of hypertension and hypertensive heart disease and despite of the Aldactone has been discontinued because of hyperkalemia and lisinopril was also discontinued, and we stopped the amlodipine at at bedtime as well tonight and to see tomorrow with his blood pressure as he monitored and he will be seeing tomorrow. His laboratory indicating that his still hyperkalemia persistent however border line 5.4 and the repeat 5.4 in spite of Kayexalate. Reusing also insulin short- acting and basal insulin as well His glucose has been stable not well controlled 7263 in the 200-300 range. Patient on IV fluid 0.9 normal saline at rate of 100 mL an hour for hydration until we improve his lactic acid and the potassium. Vital sign his temperature 98.2 F oral his pulse rate 83 per minute regular sinu s respiratory rate 18/m nonlabored and his blood pressure 107/67 with a mean 80 his pulse ox 97% on room air. HEENT head was normocephalic and atraumatic, pupil was equal reactive conjunctiva was pink sclera nonicteric extraocular muscle movement intact. Normal hearing No nasal discharge Oropharyngeal normal with natural teeth. Neck Neck supple no JVD no thyromegaly no lymphadenopathy trachea midline. Chest clear to auscultation and percussion no tenderness on the chest wall. Heart was regular sinus rhythm no evidence of dysrhythmia. Abdomen soft positive bowel sounds protuberant no tenderness in the four- quadrant. Extremities no edema and positive pulses Skin no skin rash and itching pruritus has been resolved. Neurologically he had diabetic neuropathy. With numbness and tingling and also recent H she which could be also from the medication that has been discontinued. Assessment: #1 diabetic neuropathy and abnormal itching sensation associated with medication discontinued. #2 diabetes mellitus type 2 currently is insulin-dependent insulin adjusted. #3 history of hypertension currently normotensive. With adjusting blood pressure medication #4 hyperkalemia associated with oral hypo-glycemic agent and the blood pressure medication. #5 lactic acid elevation could be associated with the metformin and the other diabetic medication. Plan: #1 ambulation as tolerated #2 obtaining serum potassium and BMP in a.m. and lactic acid in a.m. and further controlled for diabetes. #2 diabetic education came and discussed with the patient. #3 patient will be on insulin long-acting Levemir and short-acting NovoLog. And CBG to scale before meals and at bedtime with monitor blood sugar Accu-Chek. #4 plan for hyperkalemia and lactic acid monitor in a.m. and further treatment depending on the results. Objective - Vital Signs Vital signs: Vital Signs Temp 98.2 F 07/23/19 16:00 Pulse 83 07/23/19 16:00 Resp 18 07/23/19 16:00 BP 107/67 07/23/19 16:00 Pulse Ox 97 07/23/19 16:00 Intake & Output 07/22/19 07/23/19 07/23/19 18:59 06:59 18:59 Intake Total 400 1456 Balance 400 1456 Weight 144.106 kg Intake: Oral 400 856 Other 600 Other: Voiding Method Toilet Toilet Toilet # Voids 1 - Labs CBC & Chem 7: 07/23/19 05:55 07/23/19 16:30 Labs: Abnormal Lab Results - Last 24 Hours (Table) 07/22/19 07/23/19 07/23/19 Range/Units 20:13 05:55 05:55 Lymphocytes # (1.0-4.8) k/uL Potassium 6.1 H* (3.5-5.1) mmol/L Carbon Dioxide 20 L (22-30) mmol/L BUN 27 H (9-20) mg/dL Creatinine 1.31 H (0.66-1.25) mg/dL Glucose 276 H (74-99) mg/dL POC Glucose (mg/dL) 164 H (75-99) mg/dL Hemoglobin A1c 9.4 H (4.0-6.0) % Plasma Lactic Acid Jeronimo (0.7-2.0) mmol/L LDL Cholesterol, Calc 100 H (0-99) mg/dL 07/23/19 07/23/19 07/23/19 Range/Units 05:55 06:38 10:32 Lymphocytes # 0.5 L (1.0-4.8) k/uL Potassium 5.4 H (3.5-5.1) mmol/L Carbon Dioxide (22-30) mmol/L BUN (9-20) mg/dL Creatinine (0.66-1.25) mg/dL Glucose (74-99) mg/dL POC Glucose (mg/dL) 227 H (75-99) mg/dL Hemoglobin A1c (4.0-6.0) % Plasma Lactic Acid Jeronimo (0.7-2.0) mmol/L LDL Cholesterol, Calc (0-99) mg/dL 07/23/19 07/23/19 07/23/19 Range/Units 11:45 14:45 16:30 Lymphocytes # (1.0-4.8) k/uL Potassium 5.4 H (3.5-5.1) mmol/L Carbon Dioxide (22-30) mmol/L BUN (9-20) mg/dL Creatinine (0.66-1.25) mg/dL Glucose (74-99) mg/dL POC Glucose (mg/dL) 270 H (75-99) mg/dL Hemoglobin A1c (4.0-6.0) % Plasma Lactic Acid Jeronimo 2.3 H* (0.7-2.0) mmol/L LDL Cholesterol, Calc (0-99) mg/dL 07/23/19 Range/Units 16:52 Lymphocytes # (1.0-4.8) k/uL Potassium (3.5-5.1) mmol/L Carbon Dioxide (22-30) mmol/L BUN (9-20) mg/dL Creatinine (0.66-1.25) mg/dL Glucose (74-99) mg/dL POC Glucose (mg/dL) 263 H (75-99) mg/dL Hemoglobin A1c (4.0-6.0) % Plasma Lactic Acid Jeronimo (0.7-2.0) mmol/L LDL Cholesterol, Calc (0-99) mg/dL
[2019-07-23 20:41] LABS: Glucose,Whole Blood 216 mg/dL (75-99)
[2019-07-23] MEDS: SODIUM BICARBONATE TAB 650 MG TAB PO SCH (22:12)
[2019-07-24] MEDS ORDERED: INSULIN DETEMIR (LEVEMIR) 100 UNIT/ML SYR SQ SCH (07:00)
[2019-07-24 07:10] LABS: Glucose,Whole Blood 151 mg/dL (75-99)
[2019-07-24] MEDS: SODIUM CHLORIDE 0.9% 1,000 ML IV SCH (07:59)
[2019-07-24 08:16] VITALS: BP 120/72; PULSE 75; RESP 17; TEMP 98.2
[2019-07-24] MEDS: INSULIN ASPART (NovoLOG) 100 UNIT/ML VIAL SQ SCH (08:16)
[2019-07-24] MEDS: traMADol 50 MG TAB PO PRN (08:18)
[2019-07-24 08:19] LABS: Calcium 8.9 mg/dL (8.4-10.2); Potassium 4.4 mmol/L (3.5-5.1)
[2019-07-24] MEDS: cloNIDine HCL 0.1 MG TAB PO SCH (08:19)
[2019-07-24] MEDS: ASPIRIN 81 MG PO SCH (08:20)
[2019-07-24] MEDS: FUROSEMIDE 40 MG TAB PO SCH (08:20)
[2019-07-24] MEDS: amLODIPine 10 MG TAB PO SCH (08:20)
[2019-07-24] MEDS: CARVEDILOL 12.5 MG TAB PO SCH (08:20)
[2019-07-24] MEDS: SODIUM BICARBONATE TAB 650 MG TAB PO SCH (08:20)
[2019-07-24] MEDS: LINAGLIPTIN 5 MG TABLET PO SCH (08:20)
[2019-07-24] MEDS: hydrOXYzine HCL 25 MG TAB PO SCH (08:21)
[2019-07-24] MEDS ORDERED: ATORVASTATIN 80 MG TAB PO SCH (09:00)
--- NOTE | 2019-07-24 21:42 | DS ---
DISCHARGE SUMMARY The patient is FULL CODE. DATE: 5 feet 9 inches height, weight is 144.106 kg. His BSA is 2.51 m2, BMI to 46.9 kg/m2. ALLERGIES: HE HAS ALLERGY FOR ANTIBIOTIC. FINAL DIAGNOSES: 1. Admitted through the emergency room with the impression of the ER as chest pain, atypical, as seen by the Cardiology nurse practitioner. He had normal EKG and normal cardiac panel. 2. He has abnormal sensation of itching without evidence of skin lesion and in the abdominal area and the chest area with a burning sensation and the etiology was most likely associated with the hyperkalemia as well as his lactic acidosis and diabetes mellitus medication. 3. Hyperkalemia with the potassium more than 6 and treated with Kayexalate x2 and currently normalized to the 4. Multiple medication contributing to hyperkalemia as Aldactone and SID inhibitor which discontinued. 4. Hyperglycemia with uncontrolled diabetes mellitus with a hemoglobin A1c was in the range of 9. Associated with lactic acidosis. 5. Hypertension, controlled. With the discontinuation of adjusting medication. 6. The patient currently diabetes mellitus, insulin dependent with the insulin to scale and Levemir. 7. Diabetic neuropathy. No chest pain on discharge. The cardiology consultation was seen by Maricruz Guevara nurse practitioner for the Cardiology. ER presentation in the emergency room with the statement indicating chest discomfort and symptoms in the middle of the night started with waxing and waning and discomfort in the epigastric region and the chest. SUBSEQUENT HOSPITAL COURSE: The patient admitted to observation and he stated that he did not have a chest pain and his symptoms related as also he stated that to the nursing staff that he had a burning feeling and itchy feeling all over his abdominal area and lower chest as well as the thighs, inner side and subsequently investigation was done and found that he had abnormalities of hyperkalemia as well as patient found that his troponin was normal on admission and normal EKG without any acute changes. His blood sugar was monitored and his potassium on July 23 was 6.1, and subsequently it was 5.4 and repeated that is after the Kayexalate. His blood sugar has been elevated to 270 and his hemoglobin A1c was 9.4, and his lactic acid initially was 1. Subsequently went up to 2.3 and as the patient is monitored, blood pressures monitored, blood sugars monitored, changed to insulin to scale as well as the Levemir was changed to he was taking already Levemir in the morning, 40 we changed that to 40 at bedtime, as well as 20 in the morning. Currently on today, he is conscious, alert, oriented, and his blood sugar was controlled and he was according to the nursing 151 and with the electrolyte and potassium 4.4, and lactic acid went back to normal. His estimated glomerular filtration rate for 72 and we will continue the current medication with the changes mainly associated with the added the Lasix and the patient adjusting his medication currently on Tradjenta 5 mg daily as well as on his insulin Levemir 40 mg at bedtime and 20 mg in the morning and he has also Humalog to scale and prescription was given. He continued to have the amlodipine 10 mg once a day and aspirin 81 mg once a day, Atorvastatin has been changed to 80 mg once a day and he is on calamine lotion application p.r.n. q.i.d. of Caladryl. He is on Coreg 12.5 mg twice a day and clonidine 0.3 mg t.i.d. and the Lasix is 40 mg. He is also on Atarax for the itching and pruritus and 25 mg t.i.d. p.r.n. and the patient has also completely resolved the itching. As the patient in stable general condition and his vital signs were stable. On discharge, temperature 98.2, pulse is 75, respiratory rate 17, blood pressure 120/72 with a mean arterial pressure 88 and a pulse ox is 95-93 percent on room air. HEENT was negative. Neck was supple. Chest was clear to auscultation with normal breath sounds. Heart was regular sinus rhythm. Abdomen was soft, obese, positive bowel sounds. Extremities: No edema and positive pulses. ASSESSMENT: Patient is in stable general condition to be discharged home today and follow up next week in the office. MMODL / IJN: [id number] /
== END 2019-07-24 11:45 | disposition home or self-care (01) ==
LOC: EC 08:40 → SUPCPDRO 08:40 → 1SOBS 13:52
PROVIDERS: ADMIT Internal Medicine; ATTEND Internal Medicine
DX: R07.89 Other chest pain (principal); E66.01 Morbid (severe) obesity due to excess calories; Z68.42 Body mass index [BMI] 45.0-49.9, adult; E78.5 Hyperlipidemia, unspecified; E87.2 Acidosis; E87.5 Hyperkalemia; J45.909 Unspecified asthma, uncomplicated; E11.40 Type 2 diabetes mellitus with diabetic neuropathy, unspecified; G47.33 Obstructive sleep apnea (adult) (pediatric); I12.9 Hypertensive chronic kidney disease with stage 1 through stage 4 chronic kidney disease, or unspecified chronic kidney disease; E11.22 Type 2 diabetes mellitus with diabetic chronic kidney disease; E11.65 Type 2 diabetes mellitus with hyperglycemia; I25.119 Atherosclerotic heart disease of native coronary artery with unspecified angina pectoris; L29.9 Pruritus, unspecified; T50.0X5A Adverse effect of mineralocorticoids and their antagonists, initial encounter; I44.0 Atrioventricular block, first degree; N18.3 Chronic kidney disease, stage 3 (moderate); Z91.19 Patient's noncompliance with other medical treatment and regimen; Z79.4 Long term (current) use of insulin; K21.9 Gastro-esophageal reflux disease without esophagitis; I25.2 Old myocardial infarction; Z87.01 Personal history of pneumonia (recurrent); Z79.82 Long term (current) use of aspirin; Z79.899 Other long term (current) drug therapy; Z96.1 Presence of intraocular lens; Z98.42 Cataract extraction status, left eye; Z98.41 Cataract extraction status, right eye; Z82.49 Family history of ischemic heart disease and other diseases of the circulatory system
CPT/HCPCS: 96375; 96374; 99285; 36415; 93005; 85379; 84425; 80061; 80053; 80048 ×2; 82150; 83605 ×2; 83690; 83735; 84132; 84484; 85025 ×2; 85610; 85730; 83036; 71046; 74018; 71275; 74174; G0378 ×3; J2920; Q9967

== ENCOUNTER → 2019-10-20 | Outpatient (CLI) | payer MEDICARE, OTHER ==
[2019-10-20 13:30] LABS: Appearance,Urine Clear (Clear); Bacteria,Urine Rare /hpf; Bilirubin,Urine Negative (Negative); Blood,Urine Negative (Negative); Color,Urine Yellow; Glucose,Urine (UA) 4+ (Negative); Hyaline Casts,Urine 8 /lpf (0-2); Ketones,Urine Negative (Negative); Leukocyte Esterase,Urine Negative (Negative); Mucus,Urine Moderate /hpf; Nitrite,Urine Negative (Negative); PH, Urine 5.5 (5.0-8.0); Protein,Urine 1+ (Negative); RBC,Urine 1 /hpf (0-5); Specific Gravity,Urine 1.032 (1.001-1.035); Squamous Epithelial Cell,Urine <1 /hpf (0-4); Urobilinogen,Urine <2.0 mg/dL (<2.0); WBC,Urine 1 /hpf (0-5)
[2019-10-20 18:58] LABS: African American GFR (CKD) 69.6 (60.0-200.0); Anion Gap 7.6 mmol/L (4.00-12.00); BUN/Creat Ratio 15.83 Ratio (12.00-20.00); Calcium 9.2 mg/dL (8.7-10.3); Carbon Dioxide 27.4 mmol/L (21.6-31.8); Non-African American GFR(CKD) 60.1 (60.0-200.0); Potassium 4.5 mmol/L (3.5-5.5)
[2019-10-20 19:02] LABS: Creatinine,Urine Random 251.9 mg/dL
[2019-10-20 19:23] LABS: Total Protein,Urine Random 80.9 mg/dL (0.0-13.5)
== END | disposition home or self-care (01) ==
LOC: LABWHC1 11:42
PROVIDERS: ATTEND Internal Medicine
DX: N39.0 Urinary tract infection, site not specified (principal); E55.9 Vitamin D deficiency, unspecified; R80.9 Proteinuria, unspecified; E11.22 Type 2 diabetes mellitus with diabetic chronic kidney disease; N18.3 Chronic kidney disease, stage 3 (moderate)
CPT/HCPCS: 36415; 80048; 81001; 82043; 82570; 84156

== ENCOUNTER 2019-11-14 21:59 | Inpatient (IN) | payer MEDICARE, OTHER ==
--- NOTE | 2019-11-14 22:53 | XR ---
EXAMINATION TYPE: XR chest 2V DATE OF EXAM: 11/14/2019 COMPARISON: 07/22/2019 HISTORY: Chest pain TECHNIQUE: 2 views FINDINGS: There is no heart failure nor confluent pneumonic infiltrate. There are chest leads. Costop hrenic angles are clear. Bony thorax is intact. IMPRESSION: No active cardiopulmonary disease. No change.
[2019-11-14 22:55] LABS: Basophils % (A) 0 %; Eosinophils # (A) 0.4 k/uL (0-0.7); Eosinophils % (A) 5 %; HCT 43.4 % (39.0-53.0); HGB 13.3 gm/dL (13.0-17.5); Lymphocytes # (A) 1.7 k/uL (1.0-4.8); Lymphocytes % (A) 20 %; MCH 25.1 pg (25.0-35.0); MCHC 30.7 g/dL (31.0-37.0); MCV 81.8 fL (80.0-100.0); Mean Platelet Volume 9.6; Monocytes # (A) 0.4 k/uL (0-1.0); Monocytes % (A) 5 %; Neutrophils # (A) 5.5 k/uL (1.3-7.7); Neutrophils % (A) 67 %; Platelet Count 273 k/uL (150-450); RBC 5.31 m/uL (4.30-5.90); RDW 14.3 % (11.5-15.5); WBC 8.2 k/uL (3.8-10.6)
[2019-11-14 23:03] LABS: INR 0.9 (<1.2); Partial Thromboplastin Time 24.2 sec (22.0-30.0); Prothrombin Time 10.2 sec (9.0-12.0)
[2019-11-14 23:04] LABS: Albumin 3.9 g/dL (3.5-5.0); Calcium 9.8 mg/dL (8.4-10.2); Magnesium 2.1 mg/dL (1.6-2.3); Potassium 4.9 mmol/L (3.5-5.1); Total Bilirubin 0.5 mg/dL (0.2-1.3); Total Protein 7.5 g/dL (6.3-8.2)
[2019-11-14 23:14] LABS: Appearance,Urine Clear (Clear); Bilirubin,Urine Negative (Negative); Blood,Urine Negative (Negative); Color,Urine Light Yellow; Glucose,Urine (UA) 4+ (Negative); Ketones,Urine Negative (Negative); Leukocyte Esterase,Urine Negative (Negative); Nitrite,Urine Negative (Negative); Protein,Urine Negative (Negative); Specific Gravity,Urine 1.024 (1.001-1.035); Urobilinogen,Urine <2.0 mg/dL (<2.0)
[2019-11-14] MEDS ORDERED: INSULIN ASPART (NovoLOG) 100 UNIT/ML VIAL SQ STA (23:15)
[2019-11-14] MEDS ORDERED: SODIUM CHLORIDE 0.9% 1,000 ML IV ONE (23:16)
[2019-11-14 23:25] LABS: Glucose,Whole Blood 457 mg/dL (75-99)
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
--- NOTE | 2019-11-15 00:08 | CT ---
EXAMINATION TYPE: CT abdomen pelvis w con DATE OF EXAM: 11/14/2019 COMPARISON: 07/22/2019 HISTORY: Abd pain CT DLP: 3504 mGycm Automated exposure control for dose reduction was used. CONTRAST: Performed with IV Contrast, patient injected with 100 mL of Isovue 300. There is minimal atelectasis at the lung bases. There is no pleural effusion. There is no pericardial effusion. Liver has normal size. There is 2 cm irregular low-density area in the posterior superior right lobe of the liver that could be a hemangioma. Unchanged.. Gallbladder is somewhat contracted. Stomach appe ars normal. Spleen is intact. There is no evidence of pancreatic mass. There is no adrenal mass. Kidneys show satisfactory contrast opacification. There is no hydronephrosi s. There is 5.5 cm cyst on the lateral right kidney. The ureters are not dilated. There is no retrope ritoneal adenopathy. Bladder distends smoothly. There is no inguinal hernia. There is no free fluid i n the pelvis. Urinary bladder is large and measures 13 cm in height. There is no mesenteric edema. There is no ascites or free air. There is no sign of a bowel obstructio n. Appendix is not definitely seen. There is no sign of thickened appendix. Lumbar vertebra have norm al alignment. There is vacuum disc at L3-4 L4-5. There is no compression fracture. I see no bony dest ructive process. Bony pelvis is intact. IMPRESSION: Large urinary bladder could relate to bladder outlet obstruction and appears increased compared to ol d exam. Right renal cyst. Appendix not seen. No sign of appendicitis.
[2019-11-15 00:37] LABS: Glucose,Whole Blood 501 mg/dL (75-99)
[2019-11-15] MEDS ORDERED: INSULIN REGULAR 100 UNIT/ML VIAL IV STA (00:49)
[2019-11-15 01:00] LABS: Glucose,Whole Blood 379 mg/dL (75-99)
[2019-11-15] MEDS ORDERED: INSULIN REGULAR 100 UNIT/ML VIAL SQ STA (02:13)
[2019-11-15] MEDS ORDERED: INSULIN REGULAR 100 UNIT/ML VIAL IV ONE (02:18)
[2019-11-15 03:05] LABS: Glucose,Whole Blood 317 mg/dL (75-99)
[2019-11-15 03:33] LABS: Glucose,Whole Blood 397 mg/dL (75-99)
[2019-11-15] MEDS ORDERED: NALOXONE 0.4 MG/ML 1 ML VIAL IV PRN (03:42)
[2019-11-15] MEDS ORDERED: INSULIN REGULAR 100 UNIT in SODIUM CHLORIDE 0.9% 100 ML IV SCH (04:00)
[2019-11-15 04:48] LABS: Glucose,Whole Blood 423 mg/dL (75-99)
[2019-11-15 05:31] LABS: Glucose,Whole Blood 358 mg/dL (75-99)
[2019-11-15 06:24] LABS: Glucose,Whole Blood 274 mg/dL (75-99)
[2019-11-15 06:54] LABS: Glucose,Whole Blood 248 mg/dL (75-99)
[2019-11-15] MEDS: CARVEDILOL 12.5 MG TAB PO SCH ×2 (08:44→17:02)
[2019-11-15] MEDS: traMADol 50 MG TAB PO PRN (08:45)
[2019-11-15] MEDS: ASPIRIN 81 MG PO SCH (08:45)
[2019-11-15] MEDS: ATORVASTATIN 40 MG TAB PO SCH (08:45)
[2019-11-15] MEDS: LINAGLIPTIN 5 MG TABLET PO SCH (08:45)
[2019-11-15] MEDS: cloNIDine HCL 0.2 MG TAB PO SCH ×3 (08:45→20:22)
[2019-11-15] MEDS: FUROSEMIDE 40 MG TAB PO SCH (08:45)
[2019-11-15] MEDS: INSULIN DETEMIR (LEVEMIR) 100 UNIT/ML SYR SQ SCH (08:58)
[2019-11-15] MEDS ORDERED: INSULIN DETEMIR 20 UNIT SQ SCH (09:00)
[2019-11-15 11:33] LABS: Glucose,Whole Blood 314 mg/dL (75-99)
[2019-11-15] MEDS: TAMSULOSIN 0.4 MG CAP.ER.24H PO SCH ×2 (12:10→20:18)
[2019-11-15] MEDS ORDERED: INSULIN ASPART (NovoLOG) 100 UNIT/ML VIAL SQ SCH (12:30)
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
[2019-11-15 14:10] VITALS: BMI 47.9
[2019-11-15 17:01] LABS: Glucose,Whole Blood 407 mg/dL (75-99)
[2019-11-15] MEDS: glipiZIDE 10 MG TAB PO SCH (17:02)
[2019-11-15] MEDS: HUMALOG INSULIN SQ SCH ×2 (17:02→20:21)
[2019-11-15] MEDS: SODIUM CHLORIDE 0.9% 1,000 ML IV SCH (17:06)
[2019-11-15 20:18] LABS: Glucose,Whole Blood 401 mg/dL (75-99)
[2019-11-15] MEDS: amLODIPine 10 MG TAB PO SCH (20:18)
[2019-11-15] MEDS: SENNOSIDES-DOCUSATE SODIUM 1 EACH TAB PO SCH (20:18)
[2019-11-15] MEDS ORDERED: INSULIN DETEMIR (LEVEMIR) 100 UNIT/ML SYR SQ SCH (21:00)
[2019-11-15] MEDS ORDERED: INSULIN DETEMIR 50 UNIT SQ SCH (21:00)
[2019-11-16] MEDS: SODIUM CHLORIDE 0.9% 1,000 ML IV SCH ×2 (04:17→17:24)
[2019-11-16 07:12] LABS: Glucose,Whole Blood 258 mg/dL (75-99)
[2019-11-16 07:31] LABS: ALT 17 U/L (4-49); AST 27 U/L (17-59); African American GFR (CKD) >90 (>60 ml/min/1.73 sqM); Albumin 3.2 g/dL (3.5-5.0); Alkaline Phosphatase 97 U/L (38-126); Anion Gap 9 mmol/L; Blood Urea Nitrogen 19 mg/dL (9-20); Calcium 8.9 mg/dL (8.4-10.2); Carbon Dioxide 21 mmol/L (22-30); Chloride 106 mmol/L (98-107); Glucose 236 mg/dL (74-99); Non-African American GFR(CKD) 81 (>60 ml/min/1.73 sqM); Sodium 136 mmol/L (137-145); Total Bilirubin 0.9 mg/dL (0.2-1.3); Total Protein 6.7 g/dL (6.3-8.2)
[2019-11-16 07:33] LABS: Potassium 4.5 mmol/L (3.5-5.1)
[2019-11-16] MEDS: INSULIN DETEMIR (LEVEMIR) 100 UNIT/ML SYR SQ SCH ×2 (07:43→21:03)
[2019-11-16] MEDS: LINAGLIPTIN 5 MG TABLET PO SCH (07:44)
[2019-11-16] MEDS: FUROSEMIDE 40 MG TAB PO SCH (07:44)
[2019-11-16] MEDS: TAMSULOSIN 0.4 MG CAP.ER.24H PO SCH ×2 (07:44→21:02)
[2019-11-16] MEDS: CARVEDILOL 12.5 MG TAB PO SCH ×2 (07:44→17:24)
[2019-11-16] MEDS: HUMALOG INSULIN SQ SCH ×4 (07:44→21:03)
[2019-11-16] MEDS: cloNIDine HCL 0.2 MG TAB PO SCH ×3 (07:44→21:03)
[2019-11-16] MEDS: glipiZIDE 10 MG TAB PO SCH ×2 (07:44→17:24)
[2019-11-16] MEDS: SENNOSIDES-DOCUSATE SODIUM 1 EACH TAB PO SCH ×2 (07:44→21:03)
[2019-11-16] MEDS: ATORVASTATIN 40 MG TAB PO SCH (07:44)
[2019-11-16] MEDS: ASPIRIN 81 MG PO SCH (07:44)
[2019-11-16] MEDS: traMADol 50 MG TAB PO PRN (07:45)
[2019-11-16 12:09] LABS: Glucose,Whole Blood 243 mg/dL (75-99)
[2019-11-16 13:04] LABS: Hemoglobin A1C 17.2 % (4.0-6.0)
[2019-11-16 17:02] LABS: Glucose,Whole Blood 366 mg/dL (75-99)
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
--- NOTE | 2019-11-16 19:47 | PN ---
PROGRESS NOTE DATE OF SERVICE: 11/16/2019 His height 5 feet 9 inches, weight 147.418 kg, BSA 2.54 m2, BMI 48.0 kg/m square with the underlying obesity. ALLERGY: TO INSULIN NOVOLOG AND ALSO INSULIN RN. HOWEVER HE HAS NO ALLERGY TO HUMALOG. HE HAS SOME ALLERGY TO ANTIBIOTIC, BUT HE COULD NOT RECALL IT. The patient is seen today, evaluated, discussed with the patient and his which was present at the time of the exam. His vital signs today is 97.8 F oral temperature. His pulse rate 78 per minute, his respiratory rate 18 nonlabored, and his blood pressure 142/75 with a mean 97. His pulse ox on room air 97 percent. LABORATORY: Indicating that today his electrolytes indicating sodium 136, potassium 4.5, chloride 106, carbon dioxide was 21, and anion gap of 9, BUN of 19, creatinine 0.93 with the estimated glomerular filtration rate more than 90, and he is . He is a diabetic patient. His blood sugar has been monitored and he is noncompliant and he stated that he could not take any NovoLog, which is the product present in the [facility] and at this time we at this time, I did talk to Yrodan, the pharmacist yesterday to have the insulin, which is the Humalog, which he is stated that he is not allergic to it. Meanwhile, we did check his hemoglobin A1c was 17.2, and I found out also that he was not taking the Novolog at home and he was not really taking care of the sugar diabetes and he is not checking either and with the underlying clearly noncompliant to the treatment. He has calcium is 8.9, and total bilirubin 0.9, AST 27, ALT 17 with normal liver enzymes, alkaline phosphatase 97 with a total protein 6.7, and his albumin 3.2. I did request a consultation with Dr. Garcia who did see him as outpatient. The patient came to the ER with inability to urinate with urine retention and at that time, the patient received a Gilliam catheter and yesterday we took the Gilliam catheter out and to repeat the bladder scan and if he has more than 300, we will be consulting the urologist. However, I did see him today and his CAT scan showed that he has large redundant bladder and questionable atony was present and he requested the consultation with the urologist, but he does not want to have the catheter again placed. He is a very difficult for accepting the care and treatment and his stated to me that she tried to tell him to take the insulin, but he refused even at home. On the CBG has been POC glucose has been averaging in the 258-366 and we adjusted his medication as well. The patient has history of hypertension as well and has been fairly well controlled and at this time on the exam [id number], his head is normocephalic, atraumatic. Pupils were equally reactive. Oropharynx was negative. Able to eat and swallow. The neck was supple. No JVD. The chest was clear to auscultation and percussion. No shortness of breath. No wheezes and the heart PMI in the 5th intercostal space outside midclavicular line with the underlying hypertension with hypertensive heart disease. The abdomen is large, morbid obesity, and protuberant. With the positive bowel sounds and extremities and no edema and positive pulses and he had a BMI of 48 kg/m2, which is underlying morbid obesity. ASSESSMENT: 1. Underlying diabetes mellitus type 2 with hyperglycemia with a hemoglobin A1c 17, indicating that the patient was not compliant with the treatment. 2. Underlying hyperglycemia. 3. Noncompliant with the treatment. 4. Hypertension with hypertensive heart disease. 5. Hyperlipidemia. 6. Benign prostatic hypertrophy. 7. Retention of urine with the underlying incomplete empty of his bladder and as mentioned, his CT of the abdomen was indicating that he had large bladder and probably prostate enlargement and inability to urinate. 8. Obstructive uropathy. PLAN: 1. We will consult Dr. Garcia who has seen him before. 2. We started him yesterday on the Flomax 0.4 mg twice a day. 3. We started to hydrate him as well. 4. Control the blood sugar as well with the increase in the Levemir increased in the morning and the evening twice a day with the using of the Humalog for covering before each meal according to the scale. Today, we advanced the Levemir with his blood sugar is uncontrolled. However, the patient is noncompliant and apparently his maybe bring him some also food to eat other than the hospital. MMODL / IJN: [id number] /
[2019-11-16 20:53] LABS: Glucose,Whole Blood 423 mg/dL (75-99)
[2019-11-16] MEDS: amLODIPine 10 MG TAB PO SCH (21:02)
[2019-11-17] MEDS: SODIUM CHLORIDE 0.9% 1,000 ML IV SCH ×2 (04:34→17:52)
[2019-11-17 07:03] LABS: Glucose,Whole Blood 355 mg/dL (75-99)
[2019-11-17] MEDS: FUROSEMIDE 40 MG TAB PO SCH (07:14)
[2019-11-17] MEDS: LINAGLIPTIN 5 MG TABLET PO SCH (07:14)
[2019-11-17] MEDS: SENNOSIDES-DOCUSATE SODIUM 1 EACH TAB PO SCH ×2 (07:14→20:41)
[2019-11-17] MEDS: ATORVASTATIN 40 MG TAB PO SCH (07:14)
[2019-11-17] MEDS: cloNIDine HCL 0.2 MG TAB PO SCH ×3 (07:14→20:41)
[2019-11-17] MEDS: CARVEDILOL 12.5 MG TAB PO SCH ×2 (07:14→17:02)
[2019-11-17] MEDS: glipiZIDE 10 MG TAB PO SCH ×2 (07:14→17:05)
[2019-11-17] MEDS: ASPIRIN 81 MG PO SCH (07:14)
[2019-11-17] MEDS: HUMALOG INSULIN SQ SCH ×4 (07:14→20:40)
[2019-11-17] MEDS: TAMSULOSIN 0.4 MG CAP.ER.24H PO SCH ×2 (07:14→20:41)
[2019-11-17] MEDS: INSULIN DETEMIR (LEVEMIR) 100 UNIT/ML SYR SQ SCH ×2 (07:15→20:42)
[2019-11-17] MEDS: traMADol 50 MG TAB PO PRN ×2 (07:17→17:05)
[2019-11-17 07:42] LABS: Basophils # (A) 0.2 k/uL (0-0.2); Basophils % (A) 2 %; Eosinophils # (A) 0.5 k/uL (0-0.7); Eosinophils % (A) 6 %; HCT 38.9 % (39.0-53.0); HGB 12.9 gm/dL (13.0-17.5); Lymphocytes # (A) 1.6 k/uL (1.0-4.8); Lymphocytes % (A) 19 %; MCH 26.5 pg (25.0-35.0); MCHC 33.2 g/dL (31.0-37.0); MCV 79.7 fL (80.0-100.0); Mean Platelet Volume 10.1; Monocytes # (A) 0.5 k/uL (0-1.0); Monocytes % (A) 6 %; Neutrophils # (A) 5.7 k/uL (1.3-7.7); Neutrophils % (A) 66 %; Platelet Count 254 k/uL (150-450); RBC 4.89 m/uL (4.30-5.90); RDW 13.9 % (11.5-15.5); WBC 8.6 k/uL (3.8-10.6)
[2019-11-17 08:01] LABS: Calcium 9.1 mg/dL (8.4-10.2); Potassium 5.4 mmol/L (3.5-5.1)
[2019-11-17 11:39] LABS: Glucose,Whole Blood 318 mg/dL (75-99)
[2019-11-17 16:57] LABS: Glucose,Whole Blood 288 mg/dL (75-99)
[2019-11-17] MEDS: HUMALOG 100 UNIT/ML SQ SCH (17:02)
[2019-11-17] MEDS: INSULIN SQ SCH (17:02)
[2019-11-17] MEDS ORDERED: SODIUM CHLORIDE 0.9% 500 ML 500 ML IV SCH (17:45)
[2019-11-17 20:38] LABS: Glucose,Whole Blood 235 mg/dL (75-99)
[2019-11-17] MEDS: hydrALAZINE HCL 50 MG TAB PO SCH (20:41)
[2019-11-17] MEDS: amLODIPine 10 MG TAB PO SCH (20:42)
[2019-11-17] MEDS: ENOXAPARIN 40 MG/0.4 ML SYRINGE SQ SCH (20:42)
--- NOTE | 2019-11-17 22:29 | PN ---
PROGRESS NOTE DATE OF SERVICE: 11/17/2019 The patient is a 74-year-old -[place] male. The patient is seen today face-to- face and evaluated, with a history of retention of the urine, obstructive uropathy, enlarged prostate, as well as dilatation of the bladder. The CT scan of the abdomen was indicating that large urinary bladder could be related to outlet obstruction and appeared to be increased on the exam at the time. He had no signs of appendicitis. No adrenal mass. As the patient was admitted to the hospital, he is noncompliant and he claims that he is allergic to NOVOLOG and he has to be only on Humalog. We had discussed this with the pharmacy in [facility] and they are able to borrow Humalog from another hospital specifically for the patient. The patient was not compliant. He was not using the insulin at home as well and he claimed that he is allergic to NOVOLOG; even when I asked him, he stated that he has Humalog at home and his was urging him to take the insulin shots and he refused. Subsequently he said that, no, he does not have any Humalog at home either. He stated that his NOVOLOG caused him cramps in the hands and the legs and he has noted that repeatedly when they put him on IV insulin, which was Humulin R, he had similar symptoms. It is unclear if the patient is really having allergy or not; however, he claimed that to be difficult, that is a different story. For the time being, he had an EKG which was normal sinus rhythm, and we consulted Urology, Dr. Garcia, who did see him and he decided to see him as an outpatient and agreed to the trial, as we discontinued the Gilliam catheter and started him on Flomax 0.4 mg twice a day, and starting his adjustment on his Levemir. Currently he is on Levemir 35 at bedtime and 40 in the morning. Today, as the patient is seen, I did start him on the Humalog 20 units three times a day before meals plus adding the scale, as his blood sugar has been significantly elevated in the 300s and 200s and he had previous problems with pioglitazone and metformin, and he had lactic acidosis in the past. However, today as the patient is seen, his blood pressure is starting to improve. His vital signs on exam are 97.9 oral Fahrenheit, his pulse rate 78, respiratory rate 18, blood pressure 154/84 with pulse ox 97%. His HEENT was negative. His oropharynx showed missing teeth, but he has a partial at home, and uvula midline. No facial asymmetry. Neck was supple. No JVD. No thyromegaly. No lymphadenopathy. Trachea midline. Chest was clear to auscultation and percussion. Abdomen was morbidly obese. He has a BMI of 48 kg/m2. He was complaining of right leg pain, referred from the heel up to the leg; however, we discussed the neuropathy today. His extremities showed no edema and positive pulses. ASSESSMENT: 1. Diabetes mellitus, type 2, complicated, with neuropathy. 2. Hyperglycemia with noncompliance to treatment and injections. 3. Hypertension with hypertensive heart disease. 4. Underlying chronic pain. 5. Prostatic hypertrophy and large fixed obstructive uropathy with obstruction on the outlet with the large bladder. PLAN: As mentioned above, we are going to start him as well on the Humalog 20 units before meals, as well as adding the scale as well in an attempt to control his blood sugar, which has been significantly increased. We are going to cut down on the IV fluids as well, changing to . His last laboratories indicated BUN 19, creatinine 0.99 and his estimated GFR 75 in an -[place] male. His blood sugar has been significantly elevated at 423, 355, 318 and 288, and that is until today. We will see tomorrow how much we have improvement with the new changes. His potassium was elevated and will be assessed for that with decrease/adjustment in his medication and repeat the laboratories. MMODL / IJN: [id number] /
[2019-11-18] MEDS: traMADol 50 MG TAB PO PRN (04:41)
[2019-11-18 06:44] LABS: Glucose,Whole Blood 125 mg/dL (75-99)
[2019-11-18] MEDS: HUMALOG 100 UNIT/ML SQ SCH ×2 (07:08→12:17)
[2019-11-18] MEDS: INSULIN SQ SCH ×2 (07:08→12:17)
[2019-11-18] MEDS: HUMALOG INSULIN SQ SCH ×2 (07:09→12:17)
[2019-11-18] MEDS: ENOXAPARIN 40 MG/0.4 ML SYRINGE SQ SCH (07:15)
[2019-11-18] MEDS: INSULIN DETEMIR (LEVEMIR) 100 UNIT/ML SYR SQ SCH (07:15)
[2019-11-18] MEDS: FUROSEMIDE 40 MG TAB PO SCH (07:16)
[2019-11-18] MEDS: ASPIRIN 81 MG PO SCH (07:16)
[2019-11-18] MEDS: glipiZIDE 10 MG TAB PO SCH (07:16)
[2019-11-18] MEDS: ATORVASTATIN 40 MG TAB PO SCH (07:16)
[2019-11-18] MEDS: TAMSULOSIN 0.4 MG CAP.ER.24H PO SCH (07:16)
[2019-11-18] MEDS: hydrALAZINE HCL 50 MG TAB PO SCH (07:16)
[2019-11-18] MEDS: SENNOSIDES-DOCUSATE SODIUM 1 EACH TAB PO SCH (07:16)
[2019-11-18] MEDS: CARVEDILOL 12.5 MG TAB PO SCH (07:16)
[2019-11-18] MEDS: LINAGLIPTIN 5 MG TABLET PO SCH (07:17)
[2019-11-18] MEDS: cloNIDine HCL 0.2 MG TAB PO SCH (07:17)
[2019-11-18 07:52] VITALS: TEMP 97.8
[2019-11-18 08:01] LABS: African American GFR (CKD) >90 (>60 ml/min/1.73 sqM); Anion Gap 10 mmol/L; Blood Urea Nitrogen 18 mg/dL (9-20); Carbon Dioxide 21 mmol/L (22-30); Chloride 108 mmol/L (98-107); Glucose 121 mg/dL (74-99); Non-African American GFR(CKD) 80 (>60 ml/min/1.73 sqM); Potassium 4.1 mmol/L (3.5-5.1); Sodium 139 mmol/L (137-145)
[2019-11-18 11:31] LABS: Glucose,Whole Blood 259 mg/dL (75-99)
[2019-11-18 13:42] VITALS: BP 124/74; PULSE 83; RESP 15
--- NOTE | 2019-11-18 14:53 | P.DS ---
Providers Date of admission: 11/16/19 14:50 Expected date of discharge: 11/18/19 Attending physician: [place] Consults: 11/16/19 15:35 Consult Physician Urgent Consulting Provider: Nino aGrcia Consult Reason/Comments: urnary retension,large bladder,pbh,unable to empty his bladder Do you want consulting provider notified?: Yes Primary care physician: [place] visit dictation on discharge summary: Final diagnosis #1 obstructive outlet, large urinary bladder. #2 enlarged prostate associated with obstructive uropathy and urinary retention, necessitate placement of Gilliam catheter in the ER. #3 hyperglycemia, with diabetes mellitus type 2 insulin-dependent. #4 noncompliant with the insulin IV or subcu as he claims he is ALLERGIC to NovoLog and regular R with the muscle spasm of the arm and leg. #5 history of lactic acidosis from previous admission, #6 history of adverse effects with pioglitazone and volume overload and congestive heart failure. #7 hypertension with hypertensive heart disease. #8 morbid obesity with a BMI 48 kg/m. #9 hyperlipidemia. ER presentation: Patient presented with the complaint once to urinate but he could not urinate could not empty his bladder negative computed tomography scan and found that the bladder is distended large and the placed a Gilliam catheter. Also find that his blood sugar more than 500 with several trial of insulin therapy was not helpful and patient claimed that he has adverse effect and side effect with the NovoLog subcu management in the ER is changes attributed to the of insulin regular however patient again claimed that he get muscle spasm of the arms and legs and only one working for him he is Humalog U1 100 subcu. Which is not present in the protocol of Mukul Fuller. Subsequently patient admitted to inpatient Hospital course: Patient has history of lactic acidosis and his previous admission and not candidate to use metformin, history of fluid retention as well as congestive heart failure and is contraindicated for pioglitazone. I did talk to the pharmacist Mary to afford Humalog insulin for the patient care. Patient had Levemir at home and we'll be starting adjusted at this during his hospital course the Levemir as well as Humalog before meals meals as well as added scale. His investigation and the admission other than the presence of bladder distention was negative we did do a PSA and found that his PSA total 2.6 and free PSA 10% only and PSA free was 0.25. No indication of risk of cancer. Patient seen by Dr. Shipman neurologist for the urinary retention of the urine and obstructive uropathy. We did take on the second day the Gilliam catheter out and patient able to urinate on his own and with the adjustment of the insulin and adjusting on medication for hypertension. [id number] examination: 74 years old -Greek male . His blood pressure was at 2 AM 108/72 at 7 AM 166/96. His current vital sign temperature 97.8 F oral his pulse rate 74/m regular sinus respiratory rate was 16 pulse ox was 97. His laboratory was indicating sodium 139, potassium 4.1, chloride 108, carbon dioxide 21, his BUN is 18, and creatinine 0.95. His anion gap is 10 and estimated glomerular filtration rate for -Greek more than 90. He had a fasting blood sugar 121 by the laboratories and POC was 125 with the fasting blood sugars fairly well controlled however patient has E breakfast his blood sugar before lunch was 259 and patient given the 20 units plus scale. His otherwise he has no complain. On examination HEENT was negative neck was supple no JVD no thyromegaly no ly mphadenopathy trachea midline. And down oropharynx is normal and pupil is equal reactive. Neck was supple no JVD no thyromegaly no lymphadenopathy trachea midline. And Chest clear to auscultation percussion and no wheezes no rhonchi's. Heart regular sinus rhythm no dysrhythmia. Abdomen is protuberant large with morbid obesity. The mean Extremities no edema and positive pulses. Neurologically stable able to ambulate communicating well and no lateralizing sign no evidence of neuro deficit. The discharged home today discussed with the patient in detail. Discharge time 45 minutes Assessment patient stable general condition and will be discharged home today and follow-up on next Saturday in the office as well as follow-up with Dr. Shipman for further planning patient was started on Flomax twice a day and prescription was given to him as well as adjusted his blood pressure medication and has been improving. His end of dictation by Dr. Jaime Grace FACP thank you end of dictation Patient Condition at Discharge: Serious Plan - Discharge Summary Discharge Rx Participant: Yes New Discharge Prescriptions: New hydrALAZINE HCL [Apresoline] 50 mg PO TID #90 tab cloNIDine HCL [Catapres] 0.2 mg PO TID #90 tab Tamsulosin [Flomax] 0.4 mg PO BID #60 cap.er.24h glipiZIDE [Glucotrol] 10 mg PO AC-BID #60 tab Furosemide [Lasix] 40 mg PO DAILY #30 tab Insulin Detemir (Levemir) [Levemir] 35 unit SQ HS #0 syr Insulin Detemir (Levemir) [Levemir] 40 unit SQ QAM@0700 syr Sennosides-Docusate Sodium [Senokot-S] 1 each PO BID tab Carvedilol 25 mg PO AC-BID #60 tablet Continue traMADol HCL [Ultram] 50 mg PO Q8H PRN PRN Reason: Pain Aspirin 81 mg PO DAILY chew Atorvastatin Calcium [Lipitor] 40 mg PO DAILY cloNIDine HCL [Catapres] 0.2 mg PO TID Linagliptin [Tradjenta] 5 mg PO DAILY Cvs Stool Softener-Lax Tab 1 tab PO BID amLODIPine [Norvasc] 10 mg PO HS Discontinued Carvedilol [Coreg*] 12.5 mg PO BID Insulin Detemir [Levemir Flextouch] 20 units SQ QAM Furosemide [Lasix] 40 mg PO DAILY Repaglinide 1 mg PO TID Insulin Detemir [Levemir Flextouch] 50 units SQ HS Discharge Medication List traMADol HCL [Ultram] 50 mg PO Q8H PRN 10/03/18 [History] Aspirin 81 mg PO DAILY chew 10/07/18 [Rx] Atorvastatin Calcium [Lipitor] 40 mg PO DAILY 07/22/19 [History] Cvs Stool Softener-Lax Tab 1 tab PO BID 11/15/19 [History] Linagliptin [Tradjenta] 5 mg PO DAILY 11/15/19 [History] amLODIPine [Norvasc] 10 mg PO HS 11/15/19 [History] cloNIDine HCL [Catapres] 0.2 mg PO TID 11/15/19 [History] Carvedilol 25 mg PO AC-BID #60 tablet 11/18/19 [Rx] Furosemide [Lasix] 40 mg PO DAILY #30 tab 11/18/19 [Rx] Insulin Detemir (Levemir) [Levemir] 35 unit SQ HS #0 syr 11/18/19 [Rx] Insulin Detemir (Levemir) [Levemir] 40 unit SQ QAM@0700 syr 11/18/19 [Rx] Sennosides-Docusate Sodium [Senokot-S] 1 each PO BID tab 11/18/19 [Rx] Tamsulosin [Flomax] 0.4 mg PO BID #60 cap.er.24h 11/18/19 [Rx] cloNIDine HCL [Catapres] 0.2 mg PO TID #90 tab 11/18/19 [Rx] glipiZIDE [Glucotrol] 10 mg PO AC-BID #60 tab 11/18/19 [Rx] hydrALAZINE HCL [Apresoline] 50 mg PO TID #90 tab 11/18/19 [Rx] Follow up Appointment(s)/Referral(s): Nino Garcia MD [STAFF PHYSICIAN] - 1 Week [place] MD [Primary Care Provider] - 11/23/19 11:40 am Discharge Disposition: HOME SELF-CARE
--- NOTE | 2019-11-18 15:41 | CDI ---
Documentation Clarification Form Date: 11/18/2019 03:19:57 PM From: Audrey Sterling RN, CCDS Admit Date: 11/16/2019 02:50:00 PM Patient Name: Rao Cutler Visit Number: [id number] Discharge Date: ATTENTION: The Clinical Documentation Specialists (CDI) and [facility] Coding Staff appreciate your assistance in clarifying documentation. Please respond to the clarification below the line at the bottom and electronically sign. The CDI & [facility] Coding staff will review the response and follow-up if needed. Please note: Queries are made part of the Legal Health Record. If you have any questions, please contact the author of this message via ITS. Dr. [place] CHF is documented in the history and physical and subsequent progress notes and further clarification is needed. History/Risk Factors: Hypertension with Hypertensive heart disease, Congestive heart failure, Diabetes Mellitus type 2, Benign prostatic hyperplasia Clinical Indicators: 74-year-old male with past medical history of volume overload and congestive heart failure, present for evaluation of lower abdominal pain and shortness of breath. Respiratory exam notes normal lung sounds bilaterally. VS/Pulse OX: (11/14/19) 179/100 90 138 97% BNP: 44 Echocardiogram Results: (10/04/18) Moderate concentric left ventricular hypertrophy. Overall left ventricular systolic function is normal with, an EF between 55-60 % The right ventricle is mildly enlarged. Chest X Ray:() No active cardiopulmonary disease. Treatment: Coreg 12.5 Mg PO BID Catapres .2 MT PO TID Lasix 40 mg PO Daily Apresoline 50 mg PO TID In your professional opinion, can you please clarify the acuity and type of CHF if known? Chronic Diastolic Heart Failure Other, please specify Unable to Determine (Last Revision: March 2018) evidence of congestive heart failure not present on this admission with normal BNP and echocardiogram did not indicate chronic failure. No clear evidence of diastolic or systolic congestive heart failure on this admission MTDD
== END 2019-11-18 15:36 | disposition home or self-care (01) | DRG 638 ==
LOC: EC 21:59 → 4SSUR 11-15 03:42 → OBSVTOIN 11-16 14:50
PROVIDERS: ADMIT Internal Medicine; ATTEND Internal Medicine
DX: E11.65 Type 2 diabetes mellitus with hyperglycemia (principal); N13.8 Other obstructive and reflux uropathy; Z68.42 Body mass index [BMI] 45.0-49.9, adult; E66.01 Morbid (severe) obesity due to excess calories; E78.5 Hyperlipidemia, unspecified; G89.29 Other chronic pain; I11.0 Hypertensive heart disease with heart failure; I25.10 Atherosclerotic heart disease of native coronary artery without angina pectoris; I25.2 Old myocardial infarction; I50.9 Heart failure, unspecified; J45.909 Unspecified asthma, uncomplicated; K59.00 Constipation, unspecified; N40.1 Benign prostatic hyperplasia with lower urinary tract symptoms; N28.1 Cyst of kidney, acquired; N32.0 Bladder-neck obstruction; Z79.4 Long term (current) use of insulin; Z79.82 Long term (current) use of aspirin; Z79.899 Other long term (current) drug therapy; Z82.49 Family history of ischemic heart disease and other diseases of the circulatory system; Z87.09 Personal history of other diseases of the respiratory system; Z91.14 Patient's other noncompliance with medication regimen; Z91.19 Patient's noncompliance with other medical treatment and regimen; Z98.42 Cataract extraction status, left eye; Z98.41 Cataract extraction status, right eye; Z96.1 Presence of intraocular lens; Z99.89 Dependence on other enabling machines and devices; Z88.1 Allergy status to other antibiotic agents; Z88.8 Allergy status to other drugs, medicaments and biological substances
CPT/HCPCS: 36415; 51702; 71046; 74177; 80048; 80053; 81003; 82009; 83036; 83690; 83735; 83880; 84153; 84154; 84484; 85025; 85610; 85730; 93005; 94760; 96360; 96361; 99285

== ENCOUNTER 2021-02-22 12:55 | Emergency (ER) | payer MEDICARE, OTHER ==
[2021-02-22 13:27] VITALS: RESP 20
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
[2021-02-22 15:18] LABS: Anisocytosis Slight; Basophils # (A) 0.1 k/uL (0-0.2); Basophils % (A) 0 %; Eosinophils # (A) 0.9 k/uL (0-0.7); Eosinophils % (A) 7 %; HCT 40.2 % (39.0-53.0); HGB 12.6 gm/dL (13.0-17.5); Hypochromasia Slight; Lymphocytes # (A) 1.4 k/uL (1.0-4.8); Lymphocytes % (A) 11 %; MCHC 31.3 g/dL (31.0-37.0); MCV 83.2 fL (80.0-100.0); Mean Platelet Volume 8.7; Monocytes # (A) 0.6 k/uL (0-1.0); Monocytes % (A) 5 %; Neutrophils # (A) 9.4 k/uL (1.3-7.7); Neutrophils % (A) 76 %; Platelet Count 316 k/uL (150-450); RBC 4.84 m/uL (4.30-5.90); RDW 16.1 % (11.5-15.5); WBC 12.4 k/uL (3.8-10.6)
[2021-02-22 15:23] LABS: Potassium 4.8 mmol/L (3.5-5.1)
[2021-02-22 15:24] LABS: Albumin 3.8 g/dL (3.5-5.0); Calcium 9.7 mg/dL (8.4-10.2); Total Bilirubin 0.4 mg/dL (0.2-1.3); Total Protein 7.3 g/dL (6.3-8.2)
--- NOTE | 2021-02-22 15:31 | XR ---
EXAMINATION TYPE: XR chest 2V DATE OF EXAM: 02/22/2021 COMPARISON: 11/14/2019 HISTORY: Shortness of breath TECHNIQUE: Frontal and lateral views of the chest are obtained. FINDINGS: Scattered senescent parenchymal changes noted. Hyperinflation compatible with COPD. No evidence for infiltrate. No evidence for atelectasis. Heart size is stable. Mediastinal structures are stable and grossly unremarkable. No evidence for hilar prominence. Degenerative changes dorsal spine. IMPRESSION: 1. No evidence for acute pulmonary disease.
[2021-02-22] MEDS ORDERED: FUROSEMIDE 10 MG/ML 4 ML VIAL IV STA (15:56)
[2021-02-22] MEDS ORDERED: HYDROcodone/APAP 5-325MG 1 EACH TAB PO STA (16:12)
[2021-02-22 16:51] VITALS: BP 156/88; PULSE 79; TEMP 97.9
== END 2021-02-22 16:51 | disposition home or self-care (01) ==
LOC: EC 12:55
DX: I89.0 Lymphedema, not elsewhere classified (principal); J45.909 Unspecified asthma, uncomplicated; I25.10 Atherosclerotic heart disease of native coronary artery without angina pectoris; E78.5 Hyperlipidemia, unspecified; K21.9 Gastro-esophageal reflux disease without esophagitis; I11.0 Hypertensive heart disease with heart failure; I50.9 Heart failure, unspecified; I25.2 Old myocardial infarction; E11.9 Type 2 diabetes mellitus without complications; G47.33 Obstructive sleep apnea (adult) (pediatric); G89.29 Other chronic pain; M54.9 Dorsalgia, unspecified; Z82.49 Family history of ischemic heart disease and other diseases of the circulatory system; Z79.899 Other long term (current) drug therapy; Z79.4 Long term (current) use of insulin; Z79.82 Long term (current) use of aspirin
CPT/HCPCS: 36415; 83880; 80053; 83605; 84484; 85025; 71046; 99283; 96374; J1940

== ENCOUNTER 2021-03-13 11:31 | Emergency (ER) | payer MEDICARE, OTHER ==
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
[2021-03-13] MEDS ORDERED: methylPREDNISolone SOD SUCCI 125 MG/2 ML VIAL IV STA (14:36)
[2021-03-13 15:07] LABS: Albumin 3.8 g/dL (3.5-5.0); C Reactive Protein 33.5 mg/L (<10.0); Calcium 9.4 mg/dL (8.4-10.2); Potassium 4.4 mmol/L (3.5-5.1); Total Bilirubin 0.4 mg/dL (0.2-1.3); Total Protein 7.5 g/dL (6.3-8.2)
[2021-03-13 15:41] LABS: Basophils % (A) 0 %; Eosinophils # (A) 0.8 k/uL (0-0.7); Eosinophils % (A) 7 %; HGB 13.2 gm/dL (13.0-17.5); Hypochromasia Slight; Lymphocytes # (A) 1.5 k/uL (1.0-4.8); Lymphocytes % (A) 12 %; MCH 26.6 pg (25.0-35.0); MCV 80.5 fL (80.0-100.0); Mean Platelet Volume 8.3; Monocytes # (A) 0.6 k/uL (0-1.0); Monocytes % (A) 5 %; Neutrophils # (A) 8.8 k/uL (1.3-7.7); Neutrophils % (A) 74 %; Platelet Count 350 k/uL (150-450); RBC 4.97 m/uL (4.30-5.90); RDW 15.8 % (11.5-15.5)
[2021-03-13 16:35] VITALS: BP 152/88; PULSE 70; RESP 18; TEMP 98
== END 2021-03-13 16:37 | disposition home or self-care (01) ==
LOC: EC 11:31
DX: Z76.0 Encounter for issue of repeat prescription (principal); J45.909 Unspecified asthma, uncomplicated; I25.10 Atherosclerotic heart disease of native coronary artery without angina pectoris; K21.9 Gastro-esophageal reflux disease without esophagitis; E78.5 Hyperlipidemia, unspecified; E11.36 Type 2 diabetes mellitus with diabetic cataract; G47.33 Obstructive sleep apnea (adult) (pediatric); I10 Essential (primary) hypertension; I25.2 Old myocardial infarction; Z79.4 Long term (current) use of insulin; Z95.5 Presence of coronary angioplasty implant and graft
CPT/HCPCS: 36415; 80053; 85025; 86140; 87040; 87635; 99283; 96374; J2930

== ENCOUNTER 2021-04-04 15:10 | Inpatient (IN) | payer MEDICARE, OTHER ==
[2021-04-04 16:12] LABS: Anisocytosis Slight; Basophils % (A) 0 %; Eosinophils # (A) 0.6 k/uL (0-0.7); Eosinophils % (A) 6 %; HCT 39.3 % (39.0-53.0); HGB 12.6 gm/dL (13.0-17.5); Hypochromasia Slight; Lymphocytes # (A) 0.9 k/uL (1.0-4.8); Lymphocytes % (A) 9 %; MCH 26.3 pg (25.0-35.0); MCV 82.1 fL (80.0-100.0); Mean Platelet Volume 8.6; Monocytes # (A) 0.4 k/uL (0-1.0); Monocytes % (A) 5 %; Neutrophils # (A) 7.7 k/uL (1.3-7.7); Neutrophils % (A) 79 %; Platelet Count 209 k/uL (150-450); RBC 4.79 m/uL (4.30-5.90); RDW 16.5 % (11.5-15.5); WBC 9.8 k/uL (3.8-10.6)
[2021-04-04 16:24] LABS: Albumin 3.5 g/dL (3.5-5.0); Calcium 9.3 mg/dL (8.4-10.2); Magnesium 1.7 mg/dL (1.6-2.3); Total Bilirubin 0.7 mg/dL (0.2-1.3); Total Protein 6.6 g/dL (6.3-8.2)
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
--- NOTE | 2021-04-04 16:33 | XR ---
EXAMINATION TYPE: XR chest 2V DATE OF EXAM: 04/04/2021 COMPARISON: Chest x-ray February 22, 2021 HISTORY: Difficulty in breathing. TECHNIQUE: Frontal and lateral views of the chest are obtained. FINDINGS: Exam suboptimal secondary to patient's large body habitus similar to prior. There is persis tent cardiomegaly with suspected mild central vascular congestion. No pleural effusion or pneumothor ax seen bilaterally. Mild compression type fracture mid thoracic spine redemonstrated on lateral view . IMPRESSION: Suspect CHF exacerbation as there is cardiomegaly with mild central vascular congestion suspected. Correlate clinically.
[2021-04-04 16:59] LABS: INR 0.9 (<1.2); Partial Thromboplastin Time 18.4 sec (22.0-30.0); Prothrombin Time 9.9 sec (9.0-12.0)
[2021-04-04] MEDS ORDERED: MORPHINE SULFATE 4 MG/ML SYRINGE IVP STA (17:38)
[2021-04-04] MEDS ORDERED: FUROSEMIDE 10 MG/ML 10 ML VIAL IV STA (17:38)
[2021-04-04] MEDS ORDERED: NALOXONE 0.4 MG/ML 1 ML VIAL IV PRN (17:44)
[2021-04-04 20:05] LABS: Glucose,Whole Blood 89 mg/dL (75-99)
[2021-04-04] MEDS ORDERED: SENNOSIDES-DOCUSATE SODIUM 1 EACH TAB PO PRN (20:10)
[2021-04-04] MEDS: INSULIN ASPART (NovoLOG) 100 UNIT/ML VIAL SQ SCH (20:55)
[2021-04-04] MEDS: TAMSULOSIN 0.4 MG CAP.ER.24H PO SCH (20:59)
[2021-04-04] MEDS: HEPARIN SODIUM,PORCINE/PF 5,000 UNIT/0.5 ML SYRINGE SQ SCH (21:00)
[2021-04-04] MEDS: metFORMIN 500 MG TAB PO SCH (21:00)
[2021-04-04] MEDS: carvediloL 12.5 MG TAB PO SCH (21:00)
[2021-04-04] MEDS: hydrALAZINE HCL 50 MG TAB PO SCH (21:00)
[2021-04-04] MEDS: FUROSEMIDE 10 MG/ML 4 ML VIAL IV SCH (21:00)
[2021-04-04] MEDS: FAMOTIDINE 20 MG/2 ML VIAL IV SCH (21:00)
[2021-04-05 04:12] LABS: Glucose,Whole Blood 101 mg/dL (75-99)
[2021-04-05 06:10] LABS: Glucose,Whole Blood 165 mg/dL (75-99)
[2021-04-05] MEDS: INSULIN ASPART (NovoLOG) 100 UNIT/ML VIAL SQ SCH ×4 (06:32→21:08)
[2021-04-05 07:31] LABS: Anisocytosis Slight; Basophils % (A) 0 %; Eosinophils # (A) 0.4 k/uL (0-0.7); Eosinophils % (A) 4 %; HCT 39.4 % (39.0-53.0); HGB 12.5 gm/dL (13.0-17.5); Lymphocytes % (A) 9 %; MCH 25.9 pg (25.0-35.0); MCHC 31.6 g/dL (31.0-37.0); MCV 81.9 fL (80.0-100.0); Mean Platelet Volume 8.2; Monocytes # (A) 0.6 k/uL (0-1.0); Monocytes % (A) 6 %; Neutrophils # (A) 8.6 k/uL (1.3-7.7); Neutrophils % (A) 79 %; Platelet Count 221 k/uL (150-450); RBC 4.81 m/uL (4.30-5.90); RDW 16.3 % (11.5-15.5); WBC 10.8 k/uL (3.8-10.6)
[2021-04-05 07:41] LABS: Calcium 9.3 mg/dL (8.4-10.2); Potassium 4.3 mmol/L (3.5-5.1)
[2021-04-05] MEDS ORDERED: MAGNESIUM SULFATE-D5W PMX 1 GM in DEXTROSE/WATER 1 100ML.BAG IVPB ONE (08:00)
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
[2021-04-05] MEDS ORDERED: REG INSULIN SQ SCH (08:30)
[2021-04-05] MEDS ORDERED: INSULIN NPH HUM SQ SCH (08:30)
[2021-04-05] MEDS ORDERED: [UNRECOGNIZED DRUG - OTHER] SQ SCH (08:30)
[2021-04-05] MEDS ORDERED: INS SQ SCH (08:30)
[2021-04-05] MEDS: HEPARIN SODIUM,PORCINE/PF 5,000 UNIT/0.5 ML SYRINGE SQ SCH ×2 (08:40→21:09)
[2021-04-05] MEDS: carvediloL 12.5 MG TAB PO SCH ×2 (08:40→21:07)
[2021-04-05] MEDS: FAMOTIDINE 20 MG/2 ML VIAL IV SCH ×2 (08:40→21:07)
[2021-04-05] MEDS: ATORVASTATIN 40 MG TAB PO SCH (08:40)
[2021-04-05] MEDS: ASPIRIN 81 MG PO SCH (08:40)
[2021-04-05] MEDS: metFORMIN 500 MG TAB PO SCH ×2 (08:40→21:07)
[2021-04-05] MEDS: FUROSEMIDE 10 MG/ML 4 ML VIAL IV SCH ×2 (08:40→21:07)
[2021-04-05] MEDS: hydrALAZINE HCL 50 MG TAB PO SCH ×3 (08:40→21:07)
[2021-04-05] MEDS: LOSARTAN 25 MG TAB PO SCH (08:45)
[2021-04-05] MEDS ORDERED: LINAGLIPTIN 5 MG TABLET PO SCH (09:00)
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
--- NOTE | 2021-04-05 11:31 | ECHOF ---
Referral Reason:CHF MEASUREMENTS -------- HEIGHT: 175.3 cm WEIGHT: 158.8 kg BP: RVIDd: 2.0 cm (< 3.3) IVSd: 1.2 cm (0.6 - 1.1) LVIDd: 5.6 cm (3.9 - 5.3) LVPWd: 1.2 cm (0.6 - 1.1) IVSs: 2.2 cm LVIDs: 2.4 cm LVPWs: 2.0 cm Ao Diam: 3.5 cm (2.0 - 3.7) AV Cusp: 2.4 cm (1.5 - 2.6) LA Diam: 3.4 cm (2.7 - 3.8) MV EXCURSION: 19.089 mm (> 18.000) MV EF SLOPE: 110 mm/s (70 - 150) MV E Ojnas: 0.72 m/s MV DecT: 160 ms MV A Jonas: 1.32 m/s MV E/A Ratio: 0.55 RAP: 5.00 mmHg RVSP: 11.42 mmHg FINDINGS -------- This was a technically difficult study with suboptimal views. The left ventricular size is normal. There is mild concentric left ventricular hypertrophy. Overa ll left ventricular systolic function is normal with, an EF between 55 - 60 %. The right ventricle is normal in size. The left atrial size is normal. The right atrial size is normal. Lumason used The aortic valve is trileaflet and appears structurally normal. The mitral valve is normal. There is trace mitral regurgitation. The tricuspid valve appears structurally normal. Trace tricuspid regurgitation present. Right omar tricular systolic pressure is normal at < 35 mmHg. There is no pulmonic regurgitation present. The aortic root size is normal. IVC Not well visulized. There is no pericardial effusion. CONCLUSIONS -------- 1. The left ventricular size is normal. 2. There is mild concentric left ventricular hypertrophy. 3. Overall left ventricular systolic function is normal with, an EF between 55 - 60 %. 4. There is trace mitral regurgitation. 5. Trace tricuspid regurgitation present. 6. There is no pericardial effusion. LICENSED PHARMACIST: Saranya Hernandez RD
[2021-04-05 11:57] LABS: Glucose,Whole Blood 187 mg/dL (75-99)
[2021-04-05] MEDS: diphenhydrAMINE 50 MG CAP PO PRN (14:22)
[2021-04-05 16:36] LABS: Glucose,Whole Blood 160 mg/dL (75-99)
[2021-04-05 19:52] LABS: Glucose,Whole Blood 183 mg/dL (75-99)
[2021-04-05] MEDS ORDERED: INSULN ASP PRT/INSULIN ASPART 100 UNIT/ML 10 ML VIAL SQ SCH (21:00)
[2021-04-05] MEDS: TAMSULOSIN 0.4 MG CAP.ER.24H PO SCH (21:07)
[2021-04-06 01:16] LABS: Glucose,Whole Blood 47 mg/dL (75-99)
[2021-04-06] MEDS ORDERED: DEXTROSE 50% SYRINGE 50 ML IVP ONE (01:16)
[2021-04-06] MEDS ORDERED: DEXTROSE 50% SYRINGE 50 ML IVP STA (01:17)
[2021-04-06 01:28] LABS: Glucose,Whole Blood 160 mg/dL (75-99)
[2021-04-06 06:19] LABS: Glucose,Whole Blood 103 mg/dL (75-99)
[2021-04-06] MEDS ORDERED: INSULN ASP PRT/INSULIN ASPART 100 UNIT/ML 10 ML VIAL SQ SCH ×2 (07:30→21:00)
[2021-04-06] MEDS: INSULIN ASPART (NovoLOG) 100 UNIT/ML VIAL SQ SCH ×4 (07:45→22:02)
[2021-04-06 08:04] LABS: Calcium 8.8 mg/dL (8.4-10.2); Magnesium 1.8 mg/dL (1.6-2.3)
[2021-04-06] MEDS: LOSARTAN 25 MG TAB PO SCH (08:35)
[2021-04-06] MEDS: carvediloL 12.5 MG TAB PO SCH ×2 (08:35→20:18)
[2021-04-06] MEDS: HEPARIN SODIUM,PORCINE/PF 5,000 UNIT/0.5 ML SYRINGE SQ SCH ×2 (08:35→20:19)
[2021-04-06] MEDS: ASPIRIN 81 MG PO SCH (08:35)
[2021-04-06] MEDS: hydrALAZINE HCL 50 MG TAB PO SCH ×3 (08:35→22:03)
[2021-04-06] MEDS: FAMOTIDINE 20 MG/2 ML VIAL IV SCH ×2 (08:35→20:18)
[2021-04-06] MEDS: ATORVASTATIN 40 MG TAB PO SCH (08:35)
--- NOTE | 2021-04-06 08:39 | P.PN ---
Subjective Patient is a pleasant 75-year-old male came in with complaints of worsening pedal edema and a 25 pound weight gain and exertional shortness of breath. Although his history of paroxysmal nocturnal dyspnea and orthopnea not clear. Patient had normal ejection fraction the past. Patient is obese does have sleep apnea appears to be noncompliant with BiPAP machine. His echocardiogram was 2 years ago which showed normal ejection fraction as mentioned above. Patient has extensive bilateral lower limb edema. Patient denied any fever chills. Patient BNP is only 90 chest x-ray was suspicious for pulmonary edema. 04/06/2021 Patient's shortness of breath is better. Patient still has significant bilateral pedal edema had a good urine output today morning labs are not available yet. Patient had normal ejection fraction patient doesn't have any pulmonary hypertension. Patient appears to have mostly venous insufficiency. His blood sugars were extremely low will cut down the 70/30, skipped morning break first dose of 70/30. Hold off on metformin and linagliptan Constitutional: Denied any fatigue denied any fever. Cardio vascular: denied any chest pain, palpitations Gastrointestinal denied any nausea vomiting Pulmonary: As mentioned in HPI Neurologic denied any new focal deficits All inpatient medications were reviewed and appropriate changes in these medications as dictated in the interval history and assessment and plan. Objective - Vital Signs Vital signs: Vital Signs Temp 97.6 F 04/05/21 20:00 Pulse 72 04/06/21 04:00 Resp 18 04/06/21 04:00 BP 130/58 04/06/21 04:00 Pulse Ox 95 04/06/21 04:00 Intake & Output 04/05/21 04/06/21 04/06/21 18:59 06:59 18:59 Intake Total 1680 260 Output Total 750 1600 Balance 930 -1340 Weight 163 kg Intake: Oral 1680 260 Output: Urine 750 1600 Other: Voiding Method Urinal Urinal - Exam PHYSICAL EXAMINATION: GENERAL: The patient is alert and oriented x3, not in any acute distress. Obese HEENT: Pupils are round and equally reacting to light. EOMI. No scleral icterus. No conjunctival pallor. Normocephalic, atraumatic. No pharyngeal erythema. No thyromegaly. CARDIOVASCULAR: S1 and S2 present. No murmurs, rubs, or gallops. PULMONARY: Chest is clear to auscultation, no wheezing or crackles. ABDOMEN: Soft, nontender, nondistended, normoactive bowel sounds. No palpable organomegaly. MUSCULOSKELETAL: No joint swelling or deformity. EXTREMITIES: No cyanosis, clubbing, extends to 3+ bilateral pitting pedal edema patient appeared to have abdominal wall edema but this is not pitting. NEUROLOGICAL: Gross neurological examination did not reveal any focal deficits. SKIN: No rashes. - Labs CBC & Chem 7: 04/05/21 06:42 04/06/21 06:33 Labs: Abnormal Lab Results - Last 24 Hours (Table) 04/05/21 04/05/21 04/05/21 Range/Units 11:54 16:34 19:51 Carbon Dioxide (22-30) mmol/L BUN (9-20) mg/dL Creatinine (0.66-1.25) mg/dL Glucose (74-99) mg/dL POC Glucose (mg/dL) 187 H 160 H 183 H (75-99) mg/dL 04/06/21 04/06/21 04/06/21 Range/Units 01:15 01:27 06:18 Carbon Dioxide (22-30) mmol/L BUN (9-20) mg/dL Creatinine (0.66-1.25) mg/dL Glucose (74-99) mg/dL POC Glucose (mg/dL) 47 L 160 H 103 H (75-99) mg/dL 04/06/21 Range/Units 06:33 Carbon Dioxide 32 H (22-30) mmol/L BUN 22 H (9-20) mg/dL Creatinine 1.27 H (0.66-1.25) mg/dL Glucose 104 H (74-99) mg/dL POC Glucose (mg/dL) (75-99) mg/dL Assessment and Plan Plan: -Bilateral lower extremity edema: Possibility is a chronic venous insufficiency Norvasc is on hold. Patient had a normal ejection fraction doesn't have any pulmonary hypertension sleep apnea noncompliance with CPAP machine. Patient will be continued on IV Lasix because of volume overload. -Possible chronic diastolic dysfunction with mild acute exacerbation -Shortness of breath not sure if it's related to CHF can be secondary to obesity hypoventilation. -Coronary artery disease -Type 2 diabetes mellitus: Patient will be continued on his regimen except for cutting down his NPH/regular insulin dosing can you to monitor blood sugars -Gastroesophageal reflux disease -Hyperlipidemia -Hypertension #Coronary artery disease -Sleep apnea -DVT prophylaxis with subcutaneous heparin
--- NOTE | 2021-04-06 09:05 | P.PN ---
Subjective HISTORY OF PRESENTING ILLNESS This is a pleasant 75-year-old -[place] male past medical history significant for hypertension, dyslipidemia, diabetes mellitus, asthma, morbid obesity, nonobstructive coronary artery disease and chronic venous insufficiency. 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 We have been asked to see in consultation for for extremity edema. He underwent heart catheterization in [address] Wagner revealing LAD free of significant disease, first diagonal branch with a 50-60% stenosis in the proximal portion, circumflex with no significant disease, RCA with no significant disease. He presented to the hospital with symptoms of lower extremity edema and shortness of breath. He has a known history of lower extremity edema however he feels over the previous couple of weeks the edema has significantly increased and he has noticed a 25 pound weight gain also associated with increasing shortness of breath and orthopnea. He states he has been compliant with his medications. He is seen and examined sitting up in the chair in no acute distress. He denies active symptoms of shortness of breath however he has not been active since admission. He is undergoing an echocardiogram currently. Previously 2018 he had an echocardiogram revealing preserved LV systolic function with ejection fraction 55-60%. He has no symptoms of chest discomfort, dizziness or palpitations. 04/06/2021 Pt seen and examined laying flat resting comfortably in bed in no acute distress. He denies worsening shortness of breath. He had an episode of chest pain yesterday afternoon on the right side that was exacerbated by movement. EKG obtained revealed SR with no acute ST or T-wave changes from baseline. He has been chest pain free since that time. Blood pressure 161/71 heart rate 84 afebrile maintaining oxygen saturation on room air. Laboratory data reviewed,sodium 139, potassium 4.0, creatinine 1.27 and magnesium 1.8. Urine output since admission is over 5000 mls. Echocardiogram obtained reveals preser ron LV systolic function. PHYSICAL EXAMINATION CONSTITUTIONAL: No apparent distress. Morbidly obese. HEENT: Head is normocephalic. Pupils are equal, round. Sclerae anicteric. Mucous membranes of the mouth are moist. + JVD. No carotid bruit. CHEST EXAMINATION: Lungs are clear to auscultation. No chest wall tenderness is noted on palpation or with deep breathing. Diminished bilaterally. Difficult to assess secondary to body habitus. HEART EXAMINATION: Regular rate and rhythm. S1, S2 heard. No murmurs, gallops or rub. EXTREMITIES: 2+ peripheral pulses, significant bilateral lower extremity edema and no calf tenderness. ASSESSMENT Chronic venous insufficiency Acute on chronic diastolic heart failure Hypertension Dyslipidemia Diabetes mellitus Coronary artery disease Morbid obesity, BMI 51 PLAN Transition to oral diuretics, lasix 40 mg daily. Echo reviewed, normal. Most of his swelling is due to venous insufficiency. Stable for discharge from a cardiac perspective. Follow up as needed. Nurse Practitioner note has been reviewed, I agree with a documented findings and plan of care. Patient was seen and examined. Objective - Vital Signs Vital signs: Vital Signs Temp 98.0 F 04/06/21 08:34 Pulse 84 04/06/21 08:34 Resp 18 04/06/21 08:34 BP 161/71 04/06/21 08:34 Pulse Ox 97 04/06/21 08:34 Intake & Output 04/05/21 04/06/21 04/06/21 18:59 06:59 18:59 Intake Total 1680 260 Output Total 750 1600 Balance 930 -1340 Weight 163 kg Intake: Oral 1680 260 Output: Urine 750 1600 Other: Voiding Method Urinal Urinal - Labs CBC & Chem 7: 04/05/21 06:42 04/06/21 06:33 Labs: Abnormal Lab Results - Last 24 Hours (Table) 04/05/21 04/05/21 04/05/21 Range/Units 11:54 16:34 19:51 Carbon Dioxide (22-30) mmol/L BUN (9-20) mg/dL Creatinine (0.66-1.25) mg/dL Glucose (74-99) mg/dL POC Glucose (mg/dL) 187 H 160 H 183 H (75-99) mg/dL 04/06/21 04/06/21 04/06/21 Range/Units 01:15 01:27 06:18 Carbon Dioxide (22-30) mmol/L BUN (9-20) mg/dL Creatinine (0.66-1.25) mg/dL Glucose (74-99) mg/dL POC Glucose (mg/dL) 47 L 160 H 103 H (75-99) mg/dL 04/06/21 Range/Units 06:33 Carbon Dioxide 32 H (22-30) mmol/L BUN 22 H (9-20) mg/dL Creatinine 1.27 H (0.66-1.25) mg/dL Glucose 104 H (74-99) mg/dL POC Glucose (mg/dL) (75-99) mg/dL
[2021-04-06] MEDS: HYDROcodone/APAP 7.5-325MG 1 EACH TAB PO PRN (09:33)
[2021-04-06] MEDS: FUROSEMIDE 10 MG/ML 4 ML VIAL IV SCH ×2 (09:33→20:18)
[2021-04-06 11:33] LABS: Glucose,Whole Blood 187 mg/dL (75-99)
[2021-04-06 13:06] LABS: Appearance,Urine Clear (Clear); Bilirubin,Urine Negative (Negative); Blood,Urine Negative (Negative); Color,Urine Yellow; Glucose,Urine (UA) Negative (Negative); Ketones,Urine Negative (Negative); Leukocyte Esterase,Urine Negative (Negative); Nitrite,Urine Negative (Negative); PH, Urine 5.5 (5.0-8.0); Protein,Urine Negative (Negative); Specific Gravity,Urine 1.013 (1.001-1.035)
[2021-04-06 13:56] LABS: Glucose,Whole Blood 150 mg/dL (75-99)
--- NOTE | 2021-04-06 16:14 | CONS ---
CONSULTATION REASON FOR CONSULT: Acute kidney injury and volume overload. HISTORY OF PRESENT ILLNESS: Patient is a 75-year-old male with a history of coronary artery disease, type 2 diabetes, hypertension, hyperlipidemia, chronic lower extremity edema was admitted to the hospital with a 25 pounds weight gain, and shortness of breath. The patient has been diuresed. He states his edema has improved and he is breathing slightly better, although not at baseline yet. Serum creatinine was 1.27 today. Yesterday it was 1.2 and prior to that, 1.1. Review of previous labs shows a serum creatinine of about 0.9 in 2019. Blood pressure has been high with systolic around 160-130 mmHg. Over 24 hours, it looks like patient has had about 3.0 L of urine output. He is currently maintained on Lasix 40 mg IV q.12 hours. Patient is also maintained on Cozaar. At this time, he is voiding on his own. PAST MEDICAL HISTORY: Type 2 diabetes, obesity, coronary artery disease, gastroesophageal reflux disease, osteoarthritis, history of pneumonia, history of GA, obstructive sleep apnea, asthma, compression fractures, chronic back pain, psoriasis, history of right renal cyst. PAST SURGICAL HISTORY: Appendectomy, cardiac catheterization, cataract surgery with lens implants. SOCIAL HISTORY: Negative for smoking, drug abuse or alcohol abuse. MEDICATIONS: Medications include Lipitor, Tradjenta, Norvasc, Lasix, clonidine, hydralazine, aspirin, insulin, Flomax, Coreg, metformin. ALLERGIES: Allergies include INSULIN, ANTIBIOTICS details not known. REVIEW OF SYSTEMS: As per HPI. Other systems negative. PHYSICAL EXAMINATION: Patient is awake, comfortable, not in any acute distress. Blood pressure was 118/60, earlier blood pressure this morning 161/71, heart rate 84 per minute. He is afebrile. EXAMINATION OF THE HEART: S1, S2. EXAMINATION OF THE LUNGS: Bilateral breath sounds are heard. Abdomen is soft, morbidly obese. Examination of lower extremities shows chronic skin changes, chronic edema with some wrinkling of the skin noted suggesting recent diuresis. PET FEEDER exam grossly intact. LABS: Labs show sodium 139, potassium 4.0, chloride 102, CO2 is 32, BUN 22, creatinine 1.27, magnesium 1.8. ASSESSMENT: 1. Acute kidney injury, mostly cardiorenal. Continue to diurese the patient. 2. Acute on top of chronic diastolic heart failure, currently improving, ejection fraction 55% to 60%. 3. Coronary artery disease, history of cardiac catheterization. 4. Type 2 diabetes. 5. Obesity. PLAN: Continue with current dose of Lasix. Check urinalysis. The patient is advised regarding avoiding high salt containing foods as outpatient. Continue with daily weights and repeat labs in a.m. Albumin is also low and patient is encouraged to increase high-quality protein in his diet. Thank you for this consultation. We will continue to follow the patient with you during his hospitalization. MMODL / IJN: [id number] /
[2021-04-06 16:45] LABS: Glucose,Whole Blood 229 mg/dL (75-99)
[2021-04-06] MEDS: TAMSULOSIN 0.4 MG CAP.ER.24H PO SCH (20:18)
[2021-04-06 20:44] LABS: Glucose,Whole Blood 214 mg/dL (75-99)
[2021-04-06] MEDS: diphenhydrAMINE 50 MG CAP PO PRN (20:46)
[2021-04-07] MEDS: HYDROcodone/APAP 7.5-325MG 1 EACH TAB PO PRN (01:50)
[2021-04-07 06:06] LABS: Glucose,Whole Blood 139 mg/dL (75-99)
[2021-04-07] MEDS: INSULIN ASPART (NovoLOG) 100 UNIT/ML VIAL SQ SCH (06:56)
[2021-04-07] MEDS ORDERED: INSULN ASP PRT/INSULIN ASPART 100 UNIT/ML 10 ML VIAL SQ SCH (07:30)
[2021-04-07 08:10] VITALS: BP 130/63; PULSE 76; RESP 16; TEMP 98.2
[2021-04-07] MEDS: ATORVASTATIN 40 MG TAB PO SCH (08:11)
[2021-04-07] MEDS: carvediloL 12.5 MG TAB PO SCH (08:11)
[2021-04-07] MEDS: HEPARIN SODIUM,PORCINE/PF 5,000 UNIT/0.5 ML SYRINGE SQ SCH (08:11)
[2021-04-07] MEDS: FUROSEMIDE 10 MG/ML 4 ML VIAL IV SCH (08:11)
[2021-04-07] MEDS: ASPIRIN 81 MG PO SCH (08:11)
[2021-04-07] MEDS: FAMOTIDINE 20 MG/2 ML VIAL IV SCH (08:11)
[2021-04-07] MEDS: LOSARTAN 25 MG TAB PO SCH (08:13)
[2021-04-07 08:20] LABS: Calcium 9.2 mg/dL (8.4-10.2); Potassium 4.2 mmol/L (3.5-5.1)
[2021-04-07] MEDS ORDERED: FUROSEMIDE 40 MG TAB PO SCH (09:00)
[2021-04-07] MEDS ORDERED: LINAGLIPTIN 5 MG TABLET PO SCH (09:00)
--- NOTE | 2021-04-07 09:23 | P.DS ---
Providers Date of admission: 04/05/21 07:31 Attending physician: Donald Hampton MD Consults: 04/04/21 17:44 Consult Physician Urgent Consulting Provider: [facility] Consult Reason/Comments: aechf Do you want consulting provider notified?: Yes 04/06/21 08:39 Consult Physician Routine Consulting Provider: Shellie Seth Consult Reason/Comments: miles Do you want consulting provider notified?: Yes Primary care physician: Orlin Méndez [facility] Course: Patient is a pleasant 75-year-old male came in with complaints of worsening pedal edema and a 25 pound weight gain and exertional shortness of breath. Although his history of paroxysmal nocturnal dyspnea and orthopnea not clear. Patient had normal ejection fraction the past. Patient is obese does have sleep apnea appears to be noncompliant with BiPAP machine. His echocardiogram was 2 years ago which showed normal ejection fraction as mentioned above. Patient has extensive bilateral lower limb edema. Patient denied any fever chills. Patient BNP is only 90 chest x-ray was suspicious for pulmonary edema. 04/06/2021 Patient's shortness of breath is better. Patient still has significant bilateral pedal edema had a good urine output today morning labs are not available yet. Patient had normal ejection fraction patient doesn't have any pulmonary hypertension. Patient appears to have mostly venous insufficiency. His blood sugars were extremely low will cut down the 70/30, skipped morning break first dose of 70/30. Hold off on metformin and linagliptan. 04/07/2021 Patient still thickened and swelling although patient the swelling did improve quite a bit as well. Patient was have her glycemic yesterday because of which will cut down 70/30. Patient appears to be noncompliant with diet patient isabel Gutierrez for car and salt diet, pizzas and chips. Patient will be counseled regarding this. Patient was asked to avoid salt and high carbohydrate diet. Patient will be discharged on 40 mg twice a day for Lasix patient creatinine went up to 1.56 because of which metformin will be discontinued and patient will be continued on linagliptan. Patient has significant venous insufficiency of bilateral lower extremity his patient will closely follow up with the primary care physician, nephrology and cardiology as an outpatient we'll set up home care for the patient. PHYSICAL EXAMINATION: GENERAL: The patient is alert and oriented x3, not in any acute distress. Obese HEENT: Pupils are round and equally reacting to light. EOMI. No scleral icterus. No conjunctival pallor. Normocephalic, atraumatic. No pharyngeal erythema. No thyromegaly. CARDIOVASCULAR: S1 and S2 present. No murmurs, rubs, or gallops. PULMONARY: Chest is clear to auscultation, no wheezing or crackles. ABDOMEN: Soft, nontender, nondistended, normoactive bowel sounds. No palpable organomegaly. MUSCULOSKELETAL: No joint swelling or deformity. EXTREMITIES: No cyanosis, clubbing, still has absent pedal edema but significant improvement since admission. NEUROLOGICAL: Gross neurological examination did not reveal any focal deficits. SKIN: No rashes. Assessment and Plan Plan: -Bilateral lower extremity edema: Possibility is a chronic venous insufficiency Norvasc is on hold. Patient had a normal ejection fraction doesn't have any pulmonary hypertension sleep apnea noncompliance with CPAP machine. Patient will be continued on IV Lasix because of volume overload. -Possible chronic diastolic dysfunction with mild acute exacerbation -Shortness of breath not sure if it's related to CHF can be secondary to obesity hypoventilation. Probably will not require any oxygen at this time I'll the patient may benefit from repeat sleep apnea study. -Coronary artery disease -Type 2 diabetes mellitus: Discharge regimen as mentioned above -Gastroesophageal reflux disease -Hyperlipidemia -Hypertension #Coronary artery disease -Sleep apnea Patient Condition at Discharge: Stable Plan - Discharge Summary Discharge Rx Participant: No New Discharge Prescriptions: New Insuln Asp Prt/Insulin Aspart [NovoLOG MIX 70-30 VIAL] 35 unit SQ AC-BRKFST vial Insuln Asp Prt/Insulin Aspart [NovoLOG MIX 70-30 VIAL] 35 unit SQ HS vial Continue Atorvastatin Calcium [Lipitor] 40 mg PO DAILY Linagliptin [Tradjenta] 5 mg PO DAILY Sennosides-Docusate Sodium [Senokot-S] 1 tab PO BID PRN PRN Reason: Constipation carvediloL [Carvedilol] 25 mg PO BID Aspirin EC [Ecotrin Low Dose] 81 mg PO DAILY Tamsulosin [Flomax] 0.8 mg PO HS Changed Furosemide [Lasix] 40 mg PO BID #30 tab Discontinued amLODIPine [Norvasc] 10 mg PO HS hydrALAZINE HCL [Apresoline] 50 mg PO TID #90 tab cloNIDine HCL [Catapres] 0.2 mg PO TID #90 tab metFORMIN HCL 1,000 mg PO BID Insulin NPH Hum/Reg Insulin Hm [Novolin 70-30 Flexpen] 50 units SQ HS Insulin NPH Hum/Reg Insulin Hm [Novolin 70-30 Flexpen] 60 units SQ AC-BRKFST Discharge Medication List Atorvastatin Calcium [Lipitor] 40 mg PO DAILY 07/22/19 [History] Linagliptin [Tradjenta] 5 mg PO DAILY 11/15/19 [History] Aspirin EC [Ecotrin Low Dose] 81 mg PO DAILY 02/22/21 [History] Sennosides-Docusate Sodium [Senokot-S] 1 tab PO BID PRN 02/22/21 [History] Tamsulosin [Flomax] 0.8 mg PO HS 02/22/21 [History] carvediloL [Carvedilol] 25 mg PO BID 02/22/21 [History] Furosemide [Lasix] 40 mg PO BID #30 tab 04/07/21 [Rx] Insuln Asp Prt/Insulin Aspart [NovoLOG MIX 70-30 VIAL] 35 unit SQ AC-BRKFST vial 04/07/21 [Rx] Insuln Asp Prt/Insulin Aspart [NovoLOG MIX 70-30 VIAL] 35 unit SQ HS vial 04/07/21 [Rx] Follow up Appointment(s)/Referral(s): Renetta Ordaz MD [Primary Care Provider] - 1-2 days Ambulatory/Diagnostic Orders: Basic Metabolic Panel [LAB.AMB] Time Frame: 3 Days, Location: None Selected
[2021-04-07 12:00] LABS: Glucose,Whole Blood 124 mg/dL (75-99)
--- NOTE | 2021-04-07 13:28 | PN ---
PROGRESS NOTE The patient is seen for followup for volume overload and acute kidney injury. He is currently maintained on Lasix 40 mg IV q.12 hours. There has been improvement in his volume status with good urine output. The patient had 2.3 L yesterday and today so far he has had 1.4 L off. Overall, patient states well. Creatinine has increased slightly to 1.5. No complaints of chest pains or shortness of breath. PHYSICAL EXAMINATION: Blood pressure 102/54, heart rate 86 per minute. He is afebrile. EXAMINATION OF THE HEART: S1, S2. EXAMINATION OF THE LUNGS: Decreased breath sounds at bases. Abdomen is soft. Morbidly obese. Examination lower extremities chronic edema, chronic skin changes with improving edema noted lower extremities. LABS: Labs show sodium 140, potassium 4.2, chloride 100, BUN 26, creatinine 1.56. ASSESSMENT: 1. Volume overload and significant lower extremity edema, currently improved post diuresis. 2. Congestive heart failure acute on top of chronic, mostly diastolic with history of noncompliance with sodium intake. 3. Coronary artery disease, history of cardiac catheterization. 4. Type 2 diabetes. 5. Obesity. PLAN: Can switch to p.o. Lasix. Patient can be discharged. The patient is advised to avoid high salt containing foods. Follow up as outpatient in about 1-2 weeks time. Lasix can be increased to 40 mg p.o. b.i.d. from once a day on his home dose. MMODL / IJN: [id number] /
== END 2021-04-07 12:57 | disposition home health service (06) | DRG 292 ==
LOC: EC 15:10 → 3SCARD 17:44 → OBSVTOIN 04-05 07:31
PROVIDERS: ADMIT Internal Medicine; ATTEND Internal Medicine
DX: I11.0 Hypertensive heart disease with heart failure (principal); E66.2 Morbid (severe) obesity with alveolar hypoventilation; Z68.43 Body mass index [BMI] 50.0-59.9, adult; N17.9 Acute kidney failure, unspecified; Z91.19 Patient's noncompliance with other medical treatment and regimen; I50.33 Acute on chronic diastolic (congestive) heart failure; E11.9 Type 2 diabetes mellitus without complications; E78.5 Hyperlipidemia, unspecified; I25.10 Atherosclerotic heart disease of native coronary artery without angina pectoris; I25.2 Old myocardial infarction; J45.909 Unspecified asthma, uncomplicated; K21.9 Gastro-esophageal reflux disease without esophagitis; Z20.822 Contact with and (suspected) exposure to COVID-19; L98.9 Disorder of the skin and subcutaneous tissue, unspecified; N28.9 Disorder of kidney and ureter, unspecified; Z79.4 Long term (current) use of insulin; Z87.09 Personal history of other diseases of the respiratory system; Z79.899 Other long term (current) drug therapy; Z79.82 Long term (current) use of aspirin; I87.2 Venous insufficiency (chronic) (peripheral); I27.29 Other secondary pulmonary hypertension; Z96.1 Presence of intraocular lens; H26.9 Unspecified cataract; I87.8 Other specified disorders of veins; Z82.49 Family history of ischemic heart disease and other diseases of the circulatory system; Z87.01 Personal history of pneumonia (recurrent); N28.1 Cyst of kidney, acquired; L40.9 Psoriasis, unspecified; G89.29 Other chronic pain; M54.9 Dorsalgia, unspecified; M19.90 Unspecified osteoarthritis, unspecified site
CPT/HCPCS: 36415; 71046; 80048; 80053; 81003; 83605; 83735; 83880; 84484; 85025; 85610; 85730; 87636; 93005; 93306; 99285

== ENCOUNTER 2023-04-18 12:52 | Observation (INO) | payer MEDICARE, OTHER ==
[2023-04-18 14:11] LABS: Basophils % (A) 0 %; Eosinophils # (A) 0.3 k/uL (0-0.7); Eosinophils % (A) 4 %; HCT 42.8 % (39.0-53.0); HGB 13.9 gm/dL (13.0-17.5); Lymphocytes # (A) 1.1 k/uL (1.0-4.8); Lymphocytes % (A) 13 %; MCH 26.3 pg (25.0-35.0); MCHC 32.6 g/dL (31.0-37.0); MCV 80.6 fL (80.0-100.0); Mean Platelet Volume 8.7; Monocytes # (A) 0.4 k/uL (0-1.0); Monocytes % (A) 5 %; Neutrophils # (A) 6.5 k/uL (1.3-7.7); Neutrophils % (A) 77 %; Platelet Count 262 k/uL (150-450); RBC 5.31 m/uL (4.30-5.90); RDW 15.7 % (11.5-15.5); WBC 8.4 k/uL (3.8-10.6)
[2023-04-18 14:18] LABS: Albumin 3.4 g/dL (3.5-5.0); Calcium 8.8 mg/dL (8.4-10.2); Potassium 4.1 mmol/L (3.5-5.1); Total Bilirubin 0.6 mg/dL (0.2-1.3); Total Protein 6.9 g/dL (6.3-8.2)
--- NOTE | 2023-04-18 14:25 | XR ---
EXAMINATION TYPE: XR chest 2V DATE OF EXAM: 04/18/2023 COMPARISON: 04/04/21 TECHNIQUE: PA and lateral views submitted. HISTORY: SOB FINDINGS: The lungs are clear and there is no pneumothorax, pleural effusion, or focal pneumonia. Heart size enlarged and no overt failure. Osseous structures demonstrate hypertrophic and degenerative changes o f the spine. Calcification in the right hilum suggestive calcified lymph nodes. Limited inspiration. Interstitium somewhat coarsened. IMPRESSION: 1. Cardiomegaly with limited inspiration. Coarsened interstitium may be on a chronic basis related t o chronic interstitial lung disease.
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
[2023-04-18 15:16] LABS: INR 1.1 (<1.2); Prothrombin Time 11.9 sec (9.0-12.0)
[2023-04-18] MEDS ORDERED: FUROSEMIDE 10 MG/ML 4 ML VIAL IV STA (15:25)
[2023-04-18] MEDS ORDERED: NITROGLYCERIN OINT 1 INCH/GM PACKET TOPICAL STA (15:26)
[2023-04-18] MEDS ORDERED: ENALAPRILAT 1.25 MG/ML 1 ML VIAL IVP STA (15:27)
[2023-04-18] MEDS ORDERED: INSULIN REGULAR 100 UNIT/ML VIAL (IV) IV STA (15:27)
[2023-04-18] MEDS ORDERED: HYDROcodone/APAP 7.5-325MG 1 EACH TAB PO ONE (18:25)
[2023-04-18] MEDS ORDERED: hydrALAZINE HCL 20 MG/ML 1 ML VIAL IVP STA (18:25)
[2023-04-18] MEDS ORDERED: MORPHINE SULFATE 4 MG/ML SYRINGE IV STA (19:55)
[2023-04-18] MEDS ORDERED: NITROGLYCERIN SL TABS 0.4 MG TAB SUBLINGUAL STA (19:55)
[2023-04-18] MEDS ORDERED: ASPIRIN 81 MG PO STA (19:55)
[2023-04-18] MEDS ORDERED: NITROGLYCERIN SL TABS 0.4 MG TAB SUBLINGUAL PRN (20:10)
[2023-04-19] MEDS: NITROGLYCERIN OINT 1 INCH/GM PACKET TOPICAL SCH ×2 (01:20→08:12)
[2023-04-19 07:51] LABS: Glucose,Whole Blood 179 mg/dL (70-110)
[2023-04-19] MEDS ORDERED: cloNIDine HCL 0.2 MG TAB PO PRN (08:11)
[2023-04-19] MEDS: FUROSEMIDE 40 MG TAB PO SCH (08:54)
[2023-04-19] MEDS: ASPIRIN 81 MG PO SCH (08:54)
[2023-04-19] MEDS: ATORVASTATIN 80 MG TAB PO SCH (08:54)
[2023-04-19] MEDS: carvediloL 12.5 MG TAB PO SCH ×2 (08:55→19:56)
[2023-04-19] MEDS ORDERED: ASPIRIN 325 MG TAB PO SCH (09:00)
[2023-04-19] MEDS ORDERED: HYDROCORTISONE 1% CREAM 30 GM TUBE TOPICAL PRN (09:35)
[2023-04-19] MEDS ORDERED: CALCIUM CARBONATE 500 MG CHEWABLE PO PRN (09:37)
[2023-04-19] MEDS ORDERED: NALOXONE 0.4 MG/ML 1 ML VIAL IV PRN (09:37)
[2023-04-19] MEDS ORDERED: LACTULOSE 20 GM/30 ML CUP PO PRN (09:37)
[2023-04-19] MEDS ORDERED: MELATONIN 3 MG TABLET PO PRN (09:37)
[2023-04-19] MEDS ORDERED: LORazepam 0.5 MG TAB PO PRN (09:37)
[2023-04-19] MEDS ORDERED: ONDANSETRON 4 MG/2 ML VIAL IVP PRN (09:37)
[2023-04-19] MEDS ORDERED: DEXTROSE 50% SYRINGE 50 ML IVP PRN ×2 (09:38)
[2023-04-19 09:55] LABS: Glucose,Whole Blood 247 mg/dL (70-110)
[2023-04-19] MEDS ORDERED: INSULIN ASPART (NovoLOG) 100 UNIT/ML VIAL SQ SCH (10:00)
[2023-04-19 10:07] LABS: Chol/HDL Ratio 3.67 Ratio; LDL Cholesterol,Calculated 83.5 mg/dL (0.0-131.0); VLDL Calculation 19.76 mg/dL (5.00-40.00)
[2023-04-19] MEDS: INSULIN DETEMIR (LEVEMIR) 100 UNIT/ML SYR SQ SCH (10:19)
[2023-04-19] MEDS: HYDROcodone/APAP 7.5-325MG 1 EACH TAB PO PRN ×2 (10:19→19:56)
--- NOTE | 2023-04-19 10:34 | CA ---
Transthoracic Echo Report Name: Rao Cutler Age: 77 Gender: M : 1945 Exam Date: 04/19/2023 09:55 Exam Location: [place] [facility] Ht (in): 69 Wt (lb): 306 Ordering Physician: Sherrie Kohler Attending/Referring Phys: [id number], [facility] Laboratory Director Mary Alice Ross RDCS Procedure CPT: Indications: LVF Cardiac Hx: Technical Quality: Fair Contrast 1: Total Dose (mL): Contrast 2: Total Dose (mL): MEASUREMENTS (Male / Female) Normal Values 2D ECHO LV Diastolic Diameter PLAX 4.6 cm 4.2 - 5.9 / 3.9 - 5.3 cm LV Systolic Diameter PLAX 2.8 cm IVS Diastolic Thickness 1.5 cm 0.6 - 1.0 / 0.6 - 0.9 cm LVPW Diastolic Thickness 1.8 cm 0.6 - 1.0 / 0.6 - 0.9 cm LV Relative Wall Thickness 0.7 RV Internal Dim ED PLAX 3.3 cm LA Volume 95.1 cm??? 18 - 58 / 22 - 52 cm??? M-MODE Aortic Root Diameter MM 3.5 cm LA Systolic Diameter MM 4.0 cm LA Ao Ratio MM 1.1 AV Cusp Separation MM 1.9 cm DOPPLER AV Peak Velocity 203.5 cm/s AV Peak Gradient 16.6 mmHg AV Mean Velocity 130.1 cm/s AV Mean Gradient 8.0 mmHg AV Velocity Time Integral 37.1 cm LVOT Peak Velocity 124.3 cm/s LVOT Peak Gradient 6.2 mmHg LVOT Velocity Time Integral 26.6 cm MV Area PHT 4.4 cm??? Mitral E Point Velocity 94.1 cm/s Mitral A Point Velocity 119.9 cm/s Mitral E to A Ratio 0.8 MV Deceleration Time 171.9 ms MV E' Velocity 5.2 cm/s Mitral E to MV E' Ratio 18.0 FINDINGS Left Ventricle Moderately increased left ventricular wall thickness. Normal left ventricular wall motion. Normal left ventricular systolic function with no obvious regional wall motion abnormalities. Left ventricular ejection fraction is estimated at 55-60 %. Right Ventricle Normal right ventricular size and function. Right ventricular systolic pressure within normal limits. Right Atrium Normal right atrial size. Left Atrium Severely increased left atrial volume. Mildly increased left atrial area. Mitral Valve Structurally normal mitral valve. Mild mitral annular calcification. Mild mitral regurgitation. Aortic Valve Trileaflet aortic valve. Mild aortic stenosis with a peak gradient of 17 mmHg and a mean gradient of 8 mmHg. Tricuspid Valve Structurally normal tricuspid valve. Mild tricuspid regurgitation. Pulmonic Valve Structurally normal pulmonic valve. Trace pulmonic regurgitation. Pericardium No pericardial effusion. Aorta Normal size aortic root and proximal ascending aorta. CONCLUSIONS Normal LV size and systolic function with mild concentric LVH. Ejection fraction is normal. Both atria are enlarged specifically left atrium is significantly enlarged. Mitral annular calcification and aortic sclerosis without significant gradient across aortic valve. No pericardial effusion. No pulmonary hypertension although right-sided pressures are not well quantified Previewed by: Dr. Yaneli Glass MD (Electronically Signed) Final Date: 19 Apr 2023 10:33
[2023-04-19 12:47] LABS: Glucose,Whole Blood 207 mg/dL (70-110)
[2023-04-19] MEDS: hydrALAZINE HCL 50 MG TAB PO SCH ×2 (13:22→18:38)
--- NOTE | 2023-04-19 14:20 | CONS ---
CONSULTATION HISTORY OF PRESENT ILLNESS: Rao Cutler is a 77-year-old gentleman with a history of what seems to be hypertension, noncompliant with medications, and type 2 diabetes. He came into the hospital with complaints of what seems to be some shortness of breath. He came into the hospital having some tightness in the chest and said he was more short of breath. His blood pressure was elevated. He has not been taking medications regularly. He was seen by Dr. Angel in the office in January of this year, was advised a stress test prior to that and after this visit, but he did not follow through. Denies any chest pain. He is resting comfortably without symptoms at the time of my evaluation. He has chronic bilateral lower extremity edema, and his legs are usually wrapped. His blood sugar control according to the patient is not very optimal. He sees a visiting physician. He has no chest pain at the time of my evaluation. He is resting comfortably. Three sets of troponins are normal. PAST MEDICAL HISTORY: 1. Hypertension. 2. Hyperlipidemia. 3. Type 2 diabetes. 4. No documented evidence of CAD. Cardiac catheterization in 2008, revealed mild disease in LAD. His last stress test was in 2011, and this was unremarkable. His last echo was performed in 2020, which revealed normal systolic function without pulmonary hypertension. Mild mitral and tricuspid regurgitation was noted. MEDICATIONS AT HOME: Include: 1. Lasix 40 mg daily. 2. Ozempic 1 mg subcutaneous insulin. 3. Hydralazine 100 mg t.i.d. 4. Clonidine 0.2 mg t.i.d. 5. Carvedilol 25 mg b.i.d. 6. Lipitor 80 mg daily. 7. Aspirin 81 mg daily. 8. Flomax 0.8 mg daily. PHYSICAL EXAMINATION: VITAL SIGNS: Blood pressure is 168/92, pulse rate is 88 per minute. HEENT: Unremarkable. Fundus was not examined. NECK: Supple. There is JVD of 1 cm. No carotid bruit. HEART: Reveals S1 and S2 heard normally distantly. Short systolic murmur at left sternal border. Second heart sound is preserved. LUNGS: Reveal bilateral decent air entry. ABDOMEN: Distended. EXTREMITIES: Lower extremities reveal edema and diminished pulses. Legs are wrapped. CENTRAL NERVOUS SYSTEM: Grossly, no focal deficits. DIAGNOSTIC STUDIES: EKG revealed sinus mechanism, no acute changes. LABORATORY DATA: Reveal that his 3 sets of troponins are unremarkable. D-dimer is modestly elevated at 0.73. The patient has some lower extremity edema, chronic. His BNP is normal. IMPRESSION: 1. Uncontrolled hypertension, probably secondary to noncompliance. 2. Atypical chest pain. 3. Diabetes. RECOMMENDATIONS: I am recommending that we resume his medications. I discussed with him the importance of being compliant with medications. If blood pressure is well controlled, he may be discharged tomorrow and have a stress test as an outpatient. I discussed my thoughts in detail with the patient. Thank you very much for the consult. MMODL / IJN: [id number] /
[2023-04-19 14:53] LABS: Glucose,Whole Blood 232 mg/dL (70-110)
[2023-04-19 14:56] VITALS: BMI 45.1
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
[2023-04-19] MEDS: ACETAMINOPHEN TAB 325 MG TAB PO PRN (16:23)
[2023-04-19 17:36] LABS: Glucose,Whole Blood 211 mg/dL (70-110)
[2023-04-19] MEDS ORDERED: TAMSULOSIN 0.4 MG CAP.ER.24H PO SCH (21:00)
[2023-04-19 22:22] LABS: Glucose,Whole Blood 202 mg/dL (70-110)
[2023-04-20] MEDS: HYDROcodone/APAP 7.5-325MG 1 EACH TAB PO PRN (05:39)
[2023-04-20] MEDS: hydrALAZINE HCL 50 MG TAB PO SCH ×2 (06:06→13:25)
[2023-04-20] MEDS: ACETAMINOPHEN TAB 325 MG TAB PO PRN (06:06)
[2023-04-20 08:07] LABS: Glucose,Whole Blood 157 mg/dL (70-110)
[2023-04-20 08:19] VITALS: BP 116/70; PULSE 80; RESP 18; TEMP 98.6
[2023-04-20] MEDS: ASPIRIN 81 MG PO SCH (08:40)
[2023-04-20] MEDS: FUROSEMIDE 40 MG TAB PO SCH (08:40)
[2023-04-20] MEDS: INSULIN DETEMIR (LEVEMIR) 100 UNIT/ML SYR SQ SCH (08:40)
[2023-04-20] MEDS: carvediloL 12.5 MG TAB PO SCH (08:40)
[2023-04-20] MEDS: ATORVASTATIN 80 MG TAB PO SCH (08:41)
[2023-04-20 12:12] LABS: Glucose,Whole Blood 274 mg/dL (70-110)
--- NOTE | 2023-04-20 13:04 | PN ---
PROGRESS NOTE HISTORY OF PRESENT ILLNESS: A 77-year-old gentleman who I am seeing for the first time today, admitted to hospital with chest pain and was evaluated extensively by my associate, Dr. Yaneli Glass who suggested that the patient be discharged home and had an outpatient stress test. The patient was primarily kept in the hospital because of elevated blood pressure. This morning, he is doing well and free of symptoms. PHYSICAL EXAMINATION: GENERAL: Comfortable at rest. VITAL SIGNS: Stable. NECK: There is no jugular venous distention. Carotid upstroke is normal. There is no bruit. CHEST: Reveals good air entry bilaterally. HEART: Reveals first and second heart sounds. Systolic murmur at the apex. ABDOMEN: Soft. EXTREMITIES: Exam of extremities did not reveal any edema. ASSESSMENT: 1. Precordial chest pain, myocardial infarction ruled out. 2. Hypertension. PLAN: The patient is comfortable at rest. An echocardiogram revealed normal LV systolic function with biatrial enlargement without significant pulmonary hypertension. The patient may be discharged home and outpatient followup had been managed with Cardiology for further evaluation. MMODL / IJN: [id number] /
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
[2023-04-22] MEDS ORDERED: NON FORMULARY DRUG (Semaglutide [Ozempic] 1 MG/0.75 ML Each) SQ SCH (09:35)
== END 2023-04-20 14:15 | disposition home or self-care (01) ==
LOC: EC 12:52 → 4SSUR 20:12 → 3SCARD 20:44 → 6NMEDSUR 04-19 05:21
PROVIDERS: ADMIT Hospitalist; ATTEND Hospitalist
DX: I25.110 Atherosclerotic heart disease of native coronary artery with unstable angina pectoris (principal); E11.9 Type 2 diabetes mellitus without complications; K21.9 Gastro-esophageal reflux disease without esophagitis; M79.89 Other specified soft tissue disorders; Z91.148 Patient's other noncompliance with medication regimen for other reason; R51.9 Headache, unspecified; R42 Dizziness and giddiness; Z20.822 Contact with and (suspected) exposure to COVID-19; I25.2 Old myocardial infarction; I10 Essential (primary) hypertension; E78.5 Hyperlipidemia, unspecified; G47.33 Obstructive sleep apnea (adult) (pediatric); G89.29 Other chronic pain; M54.9 Dorsalgia, unspecified; L40.9 Psoriasis, unspecified; Z79.82 Long term (current) use of aspirin; M79.605 Pain in left leg; M79.604 Pain in right leg; Z79.4 Long term (current) use of insulin; Z79.899 Other long term (current) drug therapy; Z88.8 Allergy status to other drugs, medicaments and biological substances
CPT/HCPCS: 96374; 96375; 99285; 36415; 93005; 93306; 85379; 83880; 80061; 80053; 83605; 84484; 85025; 85610; 87636; 71046; G0378 ×4; J2270; J0360; J1940

== ENCOUNTER → 2023-10-23 | Outpatient (CLI) | payer MEDICARE, OTHER ==
[2023-10-23 10:50] VITALS: BP 128/76; PULSE 57; RESP 15; TEMP 97.8
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
[2023-10-25 10:00] LABS: Serum Amphetamine Negative; Serum Barbiturates Negative; Serum Benzodiazepine Negative; Serum Cocaine Negative; Serum Methadone Negative; Serum Opiates Negative; Serum Phencyclidine Negative; Serum Propoxyphene Negative; Serum THC (Cannabis) Negative
== END ==
LOC: PNWHC3 09:44
PROVIDERS: ATTEND Specialist
DX: S22.060A Wedge compression fracture of T7-T8 vertebra, initial encounter for closed fracture (principal); Z02.83 Encounter for blood-alcohol and blood-drug test; Z79.82 Long term (current) use of aspirin; Z88.8 Allergy status to other drugs, medicaments and biological substances; Z88.1 Allergy status to other antibiotic agents; X58.XXXA Exposure to other specified factors, initial encounter
CPT/HCPCS: 80307; 99211; 99212

== ENCOUNTER → 2024-01-06 | Outpatient (CLI) | payer MEDICARE, OTHER ==
--- NOTE | 2024-01-06 14:01 | P.PAINPG ---
PQRS Measure Charge Sheet Comment: HISTORY OF PRESENT ILLNESS: A 78 yr old morbidly obese male presents today w severe and chronic mid and lower back pain x 3-4 yrs secondary to T7 compression fracture, DDD, spondylosis and facet arthropathy without myelopathy for evaluation. Pt states pain level is provoked at 9 /10 in intensity, constant, localized in the lower lumbar spine, predominantly axial, achy in character w occasional shooting pain towards the BL hips. Pain is provoked by walking, weight bearing activity. Pain is alleviated by home PT x 8 wks in 2021, heat, massage device, medications, use of a cane for ambulatory assistance, topical, repositioning and rest. Oswestry axial pain score of 37. Interventional procedures include Medications include [place] 10/325mg #90 REVIEW OF ORGAN SYSTEMS: CONSTITUTIONAL: No fevers or chills. No recent weight loss. NEUROLOGICAL: + numbness and tingling along the distal extremities. No seizure disorders or headaches. MUSCULOSKELETAL: + pain PSYCHIATRIC: Denies current depression or suicidal though ts. Physical Examinations : Constitutional : Cooperative , not in acute distress . Neurologic : Cranial nerve II to XII intact. No focal neurological deficits. Psychiatric : alert & oriented x 3. Matching mood & appropriate affect. Judgment & insight intact. Musculoskeletal : Cervical Spine Motor strength in the deltoid and biceps: Normal right side. Normal Left side Motor strength biceps and the wrist extensors: Normal right side . Normal left side Motor strength in the triceps muscle: Normal right side. Normal left side Deep tendon reflexes: Normal at the biceps. Normal at Brachioradialis. Normal at triceps Vertebral body tenderness to deep palpation over Cervical facet loading test: positive bilaterally Spurling test: positive bilaterally Neck distraction test: positive bilaterally Pardeep sign: positive bilaterally Thoracic spine Vertebral body TTP over T7 Lumbar spine Motor strength lower extremities ,thigh and legs 5/5 Right side , 5/5 Left side Deep tendon reflexes : Normal Knee Jerk. Normal Ankle Jerk Vertebral body tenderness over [place] Test positive over L4, L5 Lumbar facet Loading Test: positive Right / positive Left Range of motion of the lumbar spine Flexion 30 degrees, extension 10 degrees Straight Leg Raise test: Left/ Right positive at degree Susan test: positive right / positive left. Severe tenderness over the Sacroiliac joint on the Right / Left sides Gaenslen test: positive bilaterally Seated flexion test: positive bilaterally. Sacral spine : Severe tenderness over the Sacroiliac joint: right side / left side Range of motion: Flexion of the lumbar spine <60 degrees Range of motion: Extension of the lumbar spine <20 degrees Gaenslen's Test positive Gopal's Test positive Susan test: positive right side / left side Thigh Thrust Test Sacral Thrust Test Imaging: CT without contrast of the thoracic spine from 10/04/18 reviewed Assessment/ Plan : T7 compression fracture Recommendation of medication management. [place] #90. Use, side effects, adverse reactions and safe stores discussed. [place]/opiate agreement signed 08/28/23. Blood tox screen ordered 10/23/23. Blood tox screen from 10/23/23 reviewed and inconsistent (Negative for Opiates). Will repeat UDS or Blood tox screen 01/06/24. All questions answered. I have spent greater than 30 minutes on patient care today. Dr Boggs was available by phone for the evaluation of this patient. The time was used to review the medical records including relevant urine studies and Prescription history (MAPs), review of the available imaging, evaluation and examination of the patient, coordination of care with the medical staff and if applicable referring physicians, as well as creation of the medical record PQRS Narrative: Smoking Status Never smoker Hx Alcohol Use (MH) No Home Medications: Ambulatory Orders Aspirin EC [Ecotrin Low Dose] 81 mg PO DAILY 02/22/21 Tamsulosin [Flomax] 0.8 mg PO HS 02/22/21 carvediloL 25 mg PO BID 02/22/21 Atorvastatin [Lipitor] 80 mg PO DAILY 04/18/23 Ergocalciferol (Vitamin D2) [Drisdol (50,000 Iu)] 1,250 mcg PO MO 04/18/23 Furosemide [Lasix] 40 mg PO DAILY 04/18/23 Glucagon Emergency Kit 1 mg IM ONCE PRN 04/18/23 Hydrocortisone Cream [Hydrocortisone 2.5% Cream] 1 applic TOPICAL BID PRN 04/18/23 Insulin Degludec [Tresiba Flextouch U-200 Pen] 50 units SQ DAILY 04/18/23 SILVER sulfADIAZINE CREAM [Silvadene Cream] 1 applic TOPICAL BID PRN 04/18/23 Semaglutide [Ozempic] 1 mg SQ MO 04/18/23 cloNIDine HCL 0.2 mg PO TID PRN 05/18/23 hydrALAZINE HCL [Apresoline] 100 mg PO TID-W/MEALS 04/18/23 HYDROcodone/APAP 10-325MG [[place] 10-325] 1 tab PO TID PRN 30 Days #90 tab 10/23/23 HYDROcodone/APAP 10-325MG [[place] 10-325] 1 tab PO TID PRN 30 Days #90 tab 01/06/24 HYDROcodone/APAP 10-325MG [[place] 10-325] 1 tab PO TID PRN 30 Days #90 tab 01/06/24 Controlled Substance Measures - Controlled Substance Measures Is patient prescribed a controlled substance at discharge?: Yes When asked, does pt state using other controlled substances?: No If prescribed controlled substance>3 days was MAPS reviewed?: Yes
[2024-01-06 14:10] VITALS: BP 160/81; PULSE 69; RESP 16
== END ==
LOC: PNWHC3 13:00
PROVIDERS: ATTEND Specialist
DX: S22.060A Wedge compression fracture of T7-T8 vertebra, initial encounter for closed fracture (principal); Z79.82 Long term (current) use of aspirin; Z88.8 Allergy status to other drugs, medicaments and biological substances; Z88.1 Allergy status to other antibiotic agents; X58.XXXA Exposure to other specified factors, initial encounter
CPT/HCPCS: 80307; 99212

== ENCOUNTER → 2024-03-02 | Outpatient (CLI) | payer MEDICARE ==
[2024-03-02 13:30] VITALS: BP 193/92; PULSE 71; RESP 16; TEMP 97.1
--- NOTE | 2024-03-02 14:44 | P.PAINPG ---
Objective - Vital Signs Vital signs: Intake & Output 03/01/24 03/02/24 03/02/24 18:59 06:59 18:59 Weight 141.067 kg PQRS Measure Charge Sheet Comment: HISTORY OF PRESENT ILLNESS: A 78 yr old morbidly obese male presents today w severe and chronic mid and lower back pain x 3-4 yrs secondary to T7 compression fracture, DDD, spondylosis and facet arthropathy without myelopathy for medication refills. Pt states pain level is provoked at 9 /10 in intensity, constant, localized in the lower lumbar spine, predominantly axial, achy in character w occasional shooting pain towards the R hip and LE. Pain is provoked by walking, weight bearing activity. Pain is alleviated by home PT x 8 wks in 2021, heat, massage device, medications, use of a cane for ambulatory assistance, topical, repositioning and rest. Oswestry axial pain score of 37. Interventional procedures include Medications include [place] 10/325mg #90 REVIEW OF ORGAN SYSTEMS: CONSTITUTIONAL: No fevers or chills. No recent weight loss. NEUROLOGICAL: + numbness and tingling along the distal extremities. No seizure disorders or headaches. MUSCULOSKELETAL: + pain PSYCHIATRIC: Denies current depression or suicidal thoughts. Physical Examinations : Constitutional : Cooperative , not in acute distress . Neurologic : Cranial nerve II to XII intact. No focal neurological deficits. Psychiatric : alert & oriented x 3. Matching mood & appropriate affect. Judgment & insight intact. Musculoskeletal : Cervical Spine Motor strength in the deltoid and biceps: Normal right side. Normal Left side Motor strength biceps and the wrist extensors: Normal right side . Normal left side Motor strength in the triceps muscle: Normal right side. Normal left side Deep tendon reflexes: Normal at the biceps. Normal at Brachioradialis. Normal at triceps Vertebral body tenderness to deep palpation over Cervical facet loading test: positive bilaterally Spurling test: positive bilaterally Neck distraction test: positive bilaterally Pardeep sign: positive bilaterally Thoracic spine Vertebral body TTP over T7 Lumbar spine Motor strength lower extremities ,thigh and legs 5/5 Right side , 5/5 Left side Deep tendon reflexes : Normal Knee Jerk. Normal Ankle Jerk Vertebral body tenderness over [place] Test positive over L4, L5 Lumbar facet Loading Test: positive Right / positive Left Range of motion of the lumbar spine Flexion 30 degrees, extension 10 degrees Straight Leg Raise test: Left/ Right positive at degree Susan test: positive right / positive left. Severe tenderness over the Sacroiliac joint on the Right / Left sides Gaenslen test: positive bilaterally Seated flexion test: positive bilaterally. Sacral spine : Severe tenderness over the Sacroiliac joint: right side / left side Range of motion: Flexion of the lumbar spine <60 degrees Range of motion: Extension of the lumbar spine <20 degrees Gaenslen's Test positive Gopal's Test positive Susan test: positive right side / left side Thigh Thrust Test Sacral Thrust Test Imaging: CT without contrast of the thoracic spine from 10/04/18 reviewed Assessment/ Plan : T7 compression fracture Recommendation of medication management. [place] #90. Use, side effects, adverse reactions and safe stores discussed. [place]/opiate agreement signed 08/28/23. Blood tox screen ordered 10/23/23. Blood tox screen from 01/06/24 revi ewed and consistent. All questions answered. I have spent greater than 30 minutes on patient care today. Dr Boggs was available by phone for the evaluation of this patient. The time was used to rev iew the medical records including relevant urine studies and Prescription history (MAPs), review of the available imaging, evaluation and examination of the patient, coordination of care with the medical staff and if applicable referring physicians, as well as creation of the medical record PQRS Narrative: Smoking Status Never smoker Hx Alcohol Use (MH) No Home Medications: Ambulatory Orders Aspirin EC [Ecotrin Low Dose] 81 mg PO DAILY 02/22/21 Tamsulosin [Flomax] 0.8 mg PO HS 02/22/21 carvediloL 25 mg PO BID 02/22/21 Atorvastatin [Lipitor] 80 mg PO DAILY 04/18/23 Ergocalciferol (Vitamin D2) [Drisdol (50,000 Iu)] 1,250 mcg PO MO 04/18/23 Furosemide [Lasix] 40 mg PO DAILY 04/18/23 Glucagon Emergency Kit 1 mg IM ONCE PRN 04/18/23 Hydrocortisone Cream [Hydrocortisone 2.5% Cream] 1 applic TOPICAL BID PRN 04/18/23 Insulin Degludec [Tresiba Flextouch U-200 Pen] 50 units SQ DAILY 04/18/23 SILVER sulfADIAZINE CREAM [Silvadene Cream] 1 applic TOPICAL BID PRN 04/18/23 Semaglutide [Ozempic] 1 mg SQ MO 04/18/23 cloNIDine HCL 0.2 mg PO TID PRN 04/18/23 hydrALAZINE HCL [Apresoline] 100 mg PO TID-W/MEALS 04/18/23 HYDROcodone/APAP 10-325MG [[place] 10-325] 1 tab PO TID PRN 30 Days #90 tab 01/06/24 HYDROcodone/APAP 10-325MG [[place] 10-325] 1 tab PO TID PRN 30 Days #90 tab 03/02/24 HYDROcodone/APAP 10-325MG [[place] 10-325] 1 tab PO TID PRN 30 Days #90 tab 03/02/24 Controlled Substance Measures - Controlled Substance Measures Is patient prescribed a controlled substance at discharge?: Yes When asked, does pt state using other controlled substances?: No If prescribed controlled substance>3 days was MAPS reviewed?: Yes
== END ==
LOC: PNWHC3 12:56
PROVIDERS: ATTEND Specialist
DX: S22.060A Wedge compression fracture of T7-T8 vertebra, initial encounter for closed fracture (principal); M47.812 Spondylosis without myelopathy or radiculopathy, cervical region; M47.816 Spondylosis without myelopathy or radiculopathy, lumbar region; M47.814 Spondylosis without myelopathy or radiculopathy, thoracic region; Z88.8 Allergy status to other drugs, medicaments and biological substances; Z88.1 Allergy status to other antibiotic agents
CPT/HCPCS: 99211

== ENCOUNTER → 2024-04-29 | Outpatient (CLI) | payer MEDICARE ==
--- NOTE | 2024-04-29 13:32 | P.PAINPG ---
PQRS Measure Charge Sheet Comment: HISTORY OF PRESENT ILLNESS: A 78 yr old morbidly obese male presents today w severe and chronic mid and lower back pain x 3-4 yrs secondary to T7 compression fracture, DDD, spondylosis and facet arthropathy without myelopathy for medication refills. Pt states pain level is provoked at 9 /10 in intensity, constant, localized in the lower lumbar spine, predominantly axial, throbbing in character w occasional shooting pain towards the R hip and LEs. Pain is provoked by walking, weight bearing activity. Pain is alleviated by home PT x 8 wks in 2021, heat, massage device, medications, use of a cane for ambulatory assistance, topical, repositioning and rest. Oswestry axial pain score of 37. Interventional procedures include Medications include [place] 10/325mg #90 REVIEW OF ORGAN SYSTEMS: CONSTITUTIONAL: No fevers or chills. No recent weight loss. NEUROLOGICAL: + numbness and tingling along the distal extremities. No seizure disorders or headaches. MUSCULOSKELETAL: + pain PSYCHIATRIC: Denies current depression or suicidal thoughts. Physical Examinations : Constitutional : Cooperative , not in acute distress . Neurologic : Cranial nerve II to XII intact. No focal neurological deficits. Psychiatric : alert & oriented x 3. Matching mood & appropriate affect. Judgment & insight intact. Musculoskeletal : Cervical Spine Motor strength in the deltoid and biceps: Normal right side. Normal Left side Motor strength biceps and the wrist extensors: Normal right side . Normal left side Motor strength in the triceps muscle: Normal right side. Normal left side Deep tendon reflexes: Normal at the biceps. Normal at Brachioradialis. Normal at triceps Vertebral body tenderness to deep palpation over Cervical facet loading test: positive bilaterally Spurling test: positive bilaterally Neck distraction test: positive lawrence aterally Pardeep sign: positive bilaterally Thoracic spine Vertebral body TTP over T7 Lumbar spine Motor strength lower extremities ,thigh and legs 5/5 Right side , 5/5 Left side Deep tendon reflexes : Normal Knee Jerk. Normal Ankle Jerk Vertebral body tenderness over [place] Test positive over L4, L5 Lumbar facet Loading Test: positive Right / positive Left Range of motion of the lumbar spine Flexion 30 degrees, extension 10 degrees Straight Leg Raise test: Left/ Right positive at degree Susan test: positive right / positive left. Severe tenderness over the Sacroiliac joint on the Right / Left sides Gaenslen test: positive bilaterally Seated flexion test: positive bilaterally. Sacral spine : Severe tenderness over the Sacroiliac joint: right side / left side Range of motion: Flexion of the lumbar spine <60 degrees Range of motion: Extension of the lumbar spine <20 degrees Gaenslen's Test positive Gopal's Test positive Susan test: positive right side / left side Thigh Thrust Test Sacral Thrust Test Imaging: CT without contrast of the thoracic spine from 10/04/18 reviewed Assessment/ Plan : T7 compression fracture Recommendation of YUDITH L4-L5 #1 (but pt disinterested at this time) and medication management. [place] 10/325 #90 w 1 RF Use, side effects, adverse reactions and safe stores discussed. [place]/opiate agreement signed 08/28/23. B lood tox screen ordered 10/23/23. Blood tox screen from 01/06/24 reviewed and consistent. All questions answered. I have spent greater than 30 minutes on patient care today. Dr Boggs was available by phone for the evaluation of this patient. The time was used to review the medical records including relevant urine studies and Prescription history (MAPs), review of the available imaging, evaluation and examination of the patient, coordination of care with the medical staff and if applicable referring physicians, as well as creation of the medical record PQRS Narrative: Smoking Status Never smoker Hx Alcohol Use (MH) No Home Medications: Ambulatory Orders Aspirin EC [Ecotrin Low Dose] 81 mg PO DAILY 02/22/21 Tamsulosin [Flomax] 0.8 mg PO HS 02/22/21 carvediloL 25 mg PO BID 02/22/21 Atorvastatin [Lipitor] 80 mg PO DAILY 04/18/23 Ergocalciferol (Vitamin D2) [Drisdol (50,000 Iu)] 1,250 mcg PO MO 04/18/23 Furosemide [Lasix] 40 mg PO DAILY 04/18/23 Glucagon Emergency Kit 1 mg IM ONCE PRN 04/18/23 Hydrocortisone Cream [Hydrocortisone 2.5% Cream] 1 applic TOPICAL BID PRN 04/18/23 Insulin Degludec [Tresiba Flextouch U-200 Pen] 50 units SQ DAILY 04/18/23 SILVER sulfADIAZINE CREAM [Silvadene Cream] 1 applic TOPICAL BID PRN 04/18/23 Semaglutide [Ozempic] 1 mg SQ MO 04/18/23 cloNIDine HCL 0.2 mg PO TID PRN 04/18/23 hydrALAZINE HCL [Apresoline] 100 mg PO TID-W/MEALS 04/18/23 HYDROcodone/APAP 10-325MG [[place] 10-325] 1 tab PO TID PRN 30 Days #90 tab 03/02/24 HYDROcodone/APAP 10-325MG [[place] 10-325] 1 tab PO TID PRN 30 Days #90 tab 04/29/24 HYDROcodone/APAP 10-325MG [[place] 10-325] 1 tab PO TID PRN 30 Days #90 tab 04/29/24 Controlled Substance Measures - Controlled Substance Measures Is patient prescribed a controlled substance at discharge?: Yes When asked, does pt state using other controlled substances?: No If prescribed controlled substance>3 days was MAPS reviewed?: Yes
[2024-04-29 14:27] VITALS: BP 188/86; PULSE 66; RESP 15; TEMP 98.4
== END ==
LOC: PNWHC3 13:03
PROVIDERS: ATTEND Specialist
DX: M48.54XA Collapsed vertebra, not elsewhere classified, thoracic region, initial encounter for fracture (principal); Z88.8 Allergy status to other drugs, medicaments and biological substances; Z88.1 Allergy status to other antibiotic agents
CPT/HCPCS: 99211

== ENCOUNTER 2024-06-19 03:11 | Inpatient (IN) | payer MEDICARE ==
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
[2024-06-19 03:50] LABS: Anisocytosis Slight; Basophils % (A) 0 %; Eosinophils # (A) 0.2 k/uL (0-0.7); Eosinophils % (A) 1 %; HCT 40.6 % (39.0-53.0); HGB 13.1 gm/dL (13.0-17.5); Hypochromasia Slight; Lymphocytes # (A) 0.3 k/uL (1.0-4.8); Lymphocytes % (A) 2 %; MCH 26.3 pg (25.0-35.0); MCHC 32.2 g/dL (31.0-37.0); MCV 81.6 fL (80.0-100.0); Mean Platelet Volume 8.7; Monocytes # (A) 0.9 k/uL (0-1.0); Monocytes % (A) 5 %; Neutrophils # (A) 15.8 k/uL (1.3-7.7); Neutrophils % (A) 91 %; Platelet Count 255 k/uL (150-450); RBC 4.97 m/uL (4.30-5.90); WBC 17.4 k/uL (3.8-10.6)
[2024-06-19 04:03] LABS: ALT 49 U/L (4-49); AST 118 U/L (17-59); African American GFR (CKD) 84 (>60 ml/min/1.73 sqM); Albumin 4.8 g/dL (3.5-5.0); Alkaline Phosphatase 84 U/L (38-126); Anion Gap 6 mmol/L; Blood Urea Nitrogen 19 mg/dL (9-20); Calcium 8.2 mg/dL (8.4-10.2); Carbon Dioxide 23 mmol/L (22-30); Chloride 104 mmol/L (98-107); Glucose 106 mg/dL (74-99); Non-African American GFR(CKD) 72 (>60 ml/min/1.73 sqM); Sodium 133 mmol/L (137-145); Total Bilirubin 3.5 mg/dL (0.2-1.3)
[2024-06-19] MEDS: NITROGLYCERIN OINT 1 INCH/GM PACKET TOPICAL STA (04:04)
[2024-06-19] MEDS: ASPIRIN 81 MG PO STA (04:04)
[2024-06-19] MEDS: FUROSEMIDE 10 MG/ML 4 ML VIAL IV STA (04:05)
[2024-06-19] MEDS: MORPHINE SULFATE 4 MG/ML SYRINGE IV STA (04:08)
[2024-06-19] MEDS: ACETAMINOPHEN TAB 325 MG TAB PO STA (04:10)
[2024-06-19 04:11] LABS: NT-Pro-B-Type Natriuretic Pept 3570 pg/mL
[2024-06-19 04:24] LABS: INR 1.1 (<1.2); Partial Thromboplastin Time 24.3 sec (22.0-30.0); Prothrombin Time 11.7 sec (10.0-12.5)
--- NOTE | 2024-06-19 04:34 | XR ---
EXAM: XR Chest, 2 Views CLINICAL HISTORY: ITS.REASON XR Reason: difficulty breathing TECHNIQUE: Frontal and lateral views of the chest. COMPARISON: April 18, 2023 IMPRESSION: 1. Cardiomegaly. Mildly increased bilateral lower lung airspace opacities. Findings may relate to atelectatic changes. Infection also possible.
[2024-06-19] MEDS: cefTRIAXone IN SWFI 1,000 MG/10 ML SYRINGE IVP STA (06:32)
[2024-06-19] MEDS: hydrALAZINE HCL 50 MG TAB PO SCH (08:38)
[2024-06-19] MEDS: carvediloL 12.5 MG TAB PO SCH (08:41)
[2024-06-19 08:44] LABS: Glucose,Whole Blood 90 mg/dL (70-110)
[2024-06-19] MEDS: INSULIN DETEMIR (LEVEMIR) 100 UNIT/ML SYR SQ SCH (08:44)
[2024-06-19] MEDS: TAMSULOSIN 0.4 MG CAP.ER.24H PO SCH (10:26)
[2024-06-19] MEDS: HEPARIN SODIUM,PORCINE 5,000 UNIT/ML 1 ML VIAL SQ SCH (10:26)
[2024-06-19] MEDS: FUROSEMIDE 10 MG/ML 4 ML VIAL IV SCH (10:26)
[2024-06-19] MEDS: ATORVASTATIN 80 MG TAB PO SCH (10:26)
[2024-06-19] MEDS: lisinopriL 10 MG TAB PO SCH (10:40)
[2024-06-19] MEDS: ISOSORBIDE MONONITRATE ER 30 MG TAB.ER.24H PO SCH (10:40)
[2024-06-19] MEDS: HYDROcodone/APAP 10-325MG 1 EACH TAB PO PRN (10:42)
[2024-06-19 11:27] LABS: Glucose,Whole Blood 174 mg/dL (70-110)
[2024-06-19] MEDS ORDERED: NITROGLYCERIN OINT 1 INCH/GM PACKET TOPICAL SCH (12:00)
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
[2024-06-19 13:38] LABS: Appearance,Urine Cloudy (Clear); Bacteria,Urine Few /hpf; Bilirubin,Urine Negative (Negative); Blood,Urine Trace (Negative); Color,Urine Yellow; Glucose,Urine (UA) Negative (Negative); Ketones,Urine Negative (Negative); Leukocyte Esterase,Urine Large (Negative); Mucus,Urine Rare /hpf; Nitrite,Urine Negative (Negative); Protein,Urine Trace (Negative); RBC,Urine 17 /hpf (0-5); Specific Gravity,Urine 1.013 (1.001-1.035); Squamous Epithelial Cell,Urine <1 /hpf (0-4); Urobilinogen,Urine <2.0 mg/dL (<2.0); WBC,Urine >182 /hpf (0-5)
--- NOTE | 2024-06-19 13:45 | CA ---
Transthoracic Echo Report Name: Rao Cutler Age: 78 Gender: M : 1945 Exam Date: 06/19/2024 11:37 Exam Location: [facility] Ht (in): 69 Wt (lb): 316 Ordering Physician: Yobany Miller MD Attending/Referring Phys: Apartment Maintenance Technician Sloane Carrasco RDCS Procedure CPT: Indications: Heart failure Cardiac Hx: LVH, HTN Technical Quality: Fair Contrast 1: Definity Total Dose (mL): 2 Contrast 2: Total Dose (mL): MEASUREMENTS (Male / Female) Normal Values 2D ECHO LV Diastolic Diameter PLAX 4.4 cm 4.2 - 5.9 / 3.9 - 5.3 cm LV Systolic Diameter PLAX 3.3 cm IVS Diastolic Thickness 1.6 cm 0.6 - 1.0 / 0.6 - 0.9 cm LVPW Diastolic Thickness 1.5 cm 0.6 - 1.0 / 0.6 - 0.9 cm LV Relative Wall Thickness 0.7 RV Internal Dim ED PLAX 2.5 cm LVOT Diameter 2.4 cm LA Systolic Diameter LX 4.9 cm 3.0 - 4.0 / 2.7 - 3.8 cm M-MODE Aortic Root Diameter MM 3.8 cm LA Systolic Diameter MM 4.5 cm LA Ao Ratio MM 1.2 AV Cusp Separation MM 1.1 cm DOPPLER AV Peak Velocity 232.0 cm/s AV Peak Gradient 21.5 mmHg AV Mean Velocity 176.7 cm/s AV Mean Gradient 13.7 mmHg AV Velocity Time Integral 54.6 cm LVOT Peak Velocity 120.2 cm/s LVOT Peak Gradient 5.8 mmHg LVOT Velocity Time Integral 31.4 cm LVOT Stroke Volume 144.4 cm??? LVOT Stroke Volume Index 57.5 ml/m??? LVOT Cardiac Index 4304.0 cm???/min???m??? AV Area Cont Eq vti 2.6 cm??? AV Area Cont Eq pk 2.4 cm??? MV Area PHT 2.4 cm??? Mitral E Point Velocity 71.3 cm/s Mitral A Point Velocity 109.6 cm/s Mitral E to A Ratio 0.7 MV Deceleration Time 322.3 ms TR Peak Velocity 233.7 cm/s TR Peak Gradient 21.8 mmHg Right Ventricular Systolic Press 26.1 mmHg FINDINGS Left Ventricle Left ventricular ejection fraction is estimated at 55-60 %. Severely increased left ventricular wall thickness. No obvious regional wall motion abnormalities. Left ventricular cavity size normal. Right Ventricle Normal right ventricular size and function. Right ventricular systolic pressure within normal limits. Right Atrium Normal right atrial size. Left Atrium Moderately increased left atrial diameter. Mildly increased left atrial area. Mitral Valve Structurally normal mitral valve. Trace mitral regurgitation. No mitral stenosis. Aortic Valve Mild aortic stenosis with a peak gradient of 21 mmHg and a mean gradient of 13 mmHg. No aortic regurgitation. Focal thickening of the aortic valve cusps. Tricuspid Valve Structurally normal tricuspid valve. Trace tricuspid regurgitation. Pulmonic Valve Structurally normal pulmonic valve. No pulmonic regurgitation. Trace pulmonic regurgitation. Pericardium No pericardial or pleural effusion. Echo free space anterior to the right ventricle likely represents a fat pad. Aorta Mildly dilated aortic annulus. CONCLUSIONS Normal LV size and systolic function with moderate concentric LVH. There is mitral annular calcification and aortic valve sclerosis with mild stenosis. No significant pulmonary hypertension. No clearcut pericardial effusion probable fat pad Previewed by: Dr. Yaneli Glass MD (Electronically Signed) Final Date: 19 June 2024 13:44
[2024-06-19 13:59] VITALS: BMI 46.6
[2024-06-19 16:28] LABS: Glucose,Whole Blood 214 mg/dL (70-110)
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
[2024-06-19 20:13] LABS: Glucose,Whole Blood 173 mg/dL (70-110)
[2024-06-19] MEDS ORDERED: TAMSULOSIN 0.4 MG CAP.ER.24H PO SCH (21:00)
[2024-06-20 05:38] LABS: Glucose,Whole Blood 81 mg/dL (70-110)
[2024-06-20 09:47] LABS: Basophils # (A) 0.02 X 10*3/uL (0.00-0.10); Basophils % (A) 0.2 %; Eosinophils # (A) 0.17 X 10*3/uL (0.04-0.35); Eosinophils % (A) 2.1 %; HCT 34.5 % (39.6-50.0); Lymphocytes # (A) 0.63 X 10*3/uL (0.90-5.00); Lymphocytes % (A) 7.8 %; MCH 25.5 pg (27.0-32.0); MCHC 31.9 g/dL (32.0-37.0); Mean Platelet Volume 11.5 FL (9.5-12.2); Monocytes # (A) 1.13 X 10*3/uL (0.20-1.00); NRBC Per 100 WBC 0 X 10*3/uL (0.00-0.01); Neutrophils # (A) 6.06 X 10*3/uL (1.80-7.70); Neutrophils % (A) 75.4 %; Platelet Count 215 X 10*3/uL (140-440); RBC 4.31 X 10*6/uL (4.40-5.60); RDW 16.8 % (11.5-14.5); WBC 8.05 X 10*3/uL (4.50-10.00)
[2024-06-20 11:38] LABS: Glucose,Whole Blood 163 mg/dL (70-110)
--- NOTE | 2024-06-20 13:00 | P.PN ---
Subjective HISTORY OF PRESENT ILLNESS: This is a 78-year-old male with a past medical history significant for hypertension, hyperlipidemia, diabetes, congestive heart failure, mild non- obstructive CAD, and morbid obesity. Patient follows in the office with Dr. Angel. We have been asked to see the patient in consultation for congestive heart failure. Patient examined at the bedside.patient presented to the hospital to chief complaint of shortness of breath. He states he has become more short of breath over the past few days. Patient was found to be in acute CHF and was started on Lasix 40 mg twice a day. Patient continues to report shortness of breath at the time of examination. He denies any chest pain or pressure. Vital signs are stable. * EKG reveals sinus mechanism with no signs of acute ischemia * Chest xray cardio megaly, mildly increased bilateral lower lung airspace opacities * Laboratory data: W BC 17.4. Hemoglobin 13.1. Platelet count 255. Sodium 133.BUN 19. Creatinine 1.0. Troponin negative 2. ProBNP 3005 * Current home cardiac medications include Lipitor 80 mg daily, hydralazine 100 mg 3 times a day, aspirin 81 mg daily, Lasix 40 mg twice a day, carvedilol 25 mg twice a day, lisinopril 40 mg daily * Most recent echocardiogram obtained in April 2023 revealed ejection fraction 55- 60%, mild MR, mild as, mild TR * Cardiac catheterization history: January 2009 revealing mild disease in the LAD 06/20/2024 Patient examined this morning. Patient is sitting up in the chair. Patient currently denies chest pain or pressure. He denies shortness of breath. He remains on nasal cannula. Echocardiogram completed revealing ejection fraction 55 to 60%. PHYSICAL EXAM: VITAL SIGNS: Reviewed. GENERAL: Well-developed in no acute distress. HEENT: Head is normocephalic. Pupils are equal, round. Sclerae anicteric. Mucous membranes of the mouth are moist. Neck supple. No JVD or thyromegaly LUNGS: Respirations even and unlabored. Lungs diminished bilaterally HEART: Regular rate and rhythm. S1 and S2 heard. ABDOMEN: Soft. Nondistended. Nontender. EXTREMITIES: Normal range of motion. No clubbing or cyanosis. Peripheral pulses intact. trace bilateral lower extremity edema NEUROLOGIC: Awake and alert. Oriented x 3. ASSESSMENT: Shortness of breath Acute on chronic heart failure with preserved EF, 55-60% Mild nonobstructive CAD with mild disease of the LAD, per cardiac catheterization 2008 Hypertension Hyperlipidemia Diabetes Morbid obesity: BMI 46.7 PLAN: Still awaiting lab results from this morning continue IV diuretics for today. Transition to oral diuretics 40 mg twice a day starting tomorrow Continue additional cardiac medications Patient is currently stable from a cardiac standpoint with no further inpatient recommendations We will sign off. Please reconsult if needed. Nurse practitioner note has been reviewed by physician. Signing provider agrees with the documented findings, assessment, and plan of care. Objective - Vital Signs Vital signs: Vital Signs Temp 98.9 F 06/20/24 08:04 Pulse 79 06/20/24 08:04 Resp 19 06/20/24 08:04 BP 120/53 06/20/24 08:04 Pulse Ox 99 06/20/24 08:04 FiO2 Intake & Output 06/19/24 06/20/24 06/20/24 18:59 06:59 18:59 Intake Total 820 Output Total 500 900 900 Balance -500 -80 -900 Weight 143.335 kg 140.188 kg Intake: Oral 820 Output: Urine 500 900 900 Other: Voiding Method External Catheter External Catheter - Labs CBC & Chem 7: 06/20/24 04:41 06/19/24 03:29 Labs: Abnormal Lab Results - Last 24 Hours (Table) 06/19/24 06/19/24 06/19/24 Range/Units 03:29 13:17 16:27 RBC (4.40-5.60) X 10*6/uL Hgb (13.0-17.0) g/dL Hct (39.6-50.0) % MCH (27.0-32.0) pg MCHC (32.0-37.0) g/dL RDW (11.5-14.5) % Lymphocytes # (0.90-5.00) X 10*3/uL Monocytes # (0.20-1.00) X 10*3/uL POC Glucose (mg/dL) 214 H (70-110) mg/dL Procalcitonin 4.10 H (0.02-0.09) ng/mL Urine Protein Trace H (Negative) Urine Blood Trace H (Negative) Ur Leukocyte Esterase Large H (Negative) Urine RBC 17 H (0-5) /hpf Urine WBC >182 H (0-5) /hpf Urine WBC Clumps Many H (None) /hpf Urine Bacteria Few H (None) /hpf Urine Mucus Rare H (None) /hpf 06/19/24 06/20/24 06/20/24 Range/Units 20:11 04:41 11:37 RBC 4.31 L (4.40-5.60) X 10*6/uL Hgb 11.0 L (13.0-17.0) g/dL Hct 34.5 L (39.6-50.0) % MCH 25.5 L (27.0-32.0) pg MCHC 31.9 L (32.0-37.0) g/dL RDW 16.8 H (11.5-14.5) % Lymphocytes # 0.63 L (0.90-5.00) X 10*3/uL Monocytes # 1.13 H (0.20-1.00) X 10*3/uL POC Glucose (mg/dL) 173 H 163 H (70-110) mg/dL Procalcitonin (0.02-0.09) ng/mL Urine Protein (Negative) Urine Blood (Negative) Ur Leukocyte Esterase (Negative) Urine RBC (0-5) /hpf Urine WBC (0-5) /hpf Urine WBC Clumps (None) /hpf Urine Bacteria (None) /hpf Urine Mucus (None) /hpf
[2024-06-20 13:45] LABS: BUN/Creat Ratio 15.36 Ratio (12.00-20.00); Blood Urea Nitrogen 21.5 mg/dL (9.0-27.0); Carbon Dioxide 25.2 mmol/L (21.6-31.8); Chloride 101 mmol/L (96-109); Glucose 94 mg/dL (70-110); Potassium 3.6 mmol/L (3.5-5.5); Sodium 138 mmol/L (135-145)
[2024-06-20 14:31] LABS: NT-Pro-B-Type Natriuretic Pept 1161 pg/mL (0-450)
[2024-06-20 16:39] LABS: Glucose,Whole Blood 189 mg/dL (70-110)
--- NOTE | 2024-06-20 17:36 | P.PN ---
Subjective Progress Note Date: 06/20/24 78-year-old male with a past medical history significant for hypertension, hyperlipidemia, diabetes, congestive heart failure, mild non-obstructive CAD, and morbid obesity, presented to the hospital with complaint of shortness of breath. He states he has become more short of breath over the past few days. Patient was found to be in acute CHF and was started on Lasix 40 mg twice a day. Patient continues to report shortness of breath at the time of examination. He denies any chest pain or pressure. Workup completed in ED reveals --EKG reveals sinus mechanism with no signs of acute ischemia -Chest xray cardio megaly, mildly increased bilateral lower lung airspace opacities -Laboratory data: W BC 17.4. Hemoglobin 13.1. Platelet count 255. Sodium 133.BUN 19. Creatinine 1.0. Troponin negative 2. ProBNP 3005 -Most recent echocardiogram obtained in April 2023 revealed ejection fraction 55-6 0%, mild MR, mild as, mild TR -Cardiac catheterization history: January 2009 revealing mild disease in the LAD Patient is being admitted to the hospital for diuresis and further evaluation by cardiology Objective - Vital Signs Vital signs: Vital Signs Temp 98.9 F 06/20/24 08:04 Pulse 79 06/20/24 08:04 Resp 19 06/20/24 08:04 BP 120/53 06/20/24 08:04 Pulse Ox 99 06/20/24 08:04 FiO2 Intake & Output 06/19/24 06/20/24 06/20/24 18:59 06:59 18:59 Intake Total 820 Output Total 500 900 Balance -500 -80 Weight 143.335 kg 140.188 kg Intake: Oral 820 Output: Urine 500 900 Other: Voiding Method External Catheter External Catheter - Exam GENERAL: Well-developed in no acute distress. HEENT: Head is normocephalic. Pupils are equal, round. Sclerae anicteric. Mucous membranes of the mouth are moist. Neck supple. No JVD or thyromegaly LUNGS: Respirations even and unlabored. Lungs diminished bilaterally HEART: Regular rate and rhythm. S1 and S2 heard. ABDOMEN: Soft. Nondistended. Nontender. EXTREMITIES: Normal range of motion. No clubbing or cyanosis. Peripheral pulses intact. trace bilateral lower extremity edema NEUROLOGIC: Awake and alert. Oriented x 3. - Labs CBC & Chem 7: 06/20/24 04:41 06/20/24 04:41 Labs: Abnormal Lab Results - Last 24 Hours (Table) 06/19/24 06/19/24 06/19/24 Range/Units 03:29 13:17 16:27 RBC (4.40-5.60) X 10*6/uL Hgb (13.0-17.0) g/dL Hct (39.6-50.0) % MCH (27.0-32.0) pg MCHC (32.0-37.0) g/dL RDW (11.5-14.5) % Lymphocytes # (0.90-5.00) X 10*3/uL Monocytes # (0.20-1.00) X 10*3/uL POC Glucose (mg/dL) 214 H (70-110) mg/dL Procalcitonin 4.10 H (0.02-0.09) ng/mL Urine Protein Trace H (Negative) Urine Blood Trace H (Negative) Ur Leukocyte Esterase Large H (Negative) Urine RBC 17 H (0-5) /hpf Urine WBC >182 H (0-5) /hpf Urine WBC Clumps Many H (None) /hpf Urine Bacteria Few H (None) /hpf Urine Mucus Rare H (None) /hpf 06/19/24 06/20/24 06/20/24 Range/Units 20:11 04:41 11:37 RBC 4.31 L (4.40-5.60) X 10*6/uL Hgb 11.0 L (13.0-17.0) g/dL Hct 34.5 L (39.6-50.0) % MCH 25.5 L (27.0-32.0) pg MCHC 31.9 L (32.0-37.0) g/dL RDW 16.8 H (11.5-14.5) % Lymphocytes # 0.63 L (0.90-5.00) X 10*3/uL Monocytes # 1.13 H (0.20-1.00) X 10*3/uL POC Glucose (mg/dL) 173 H 163 H (70-110) mg/dL Procalcitonin (0.02-0.09) ng/mL Urine Protein (Negative) Urine Blood (Negative) Ur Leukocyte Esterase (Negative) Urine RBC (0-5) /hpf Urine WBC (0-5) /hpf Urine WBC Clumps (None) /hpf Urine Bacteria (None) /hpf Urine Mucus (None) /hpf Assessment and Plan Assessment: 1. Acute exacerbation CHF with preserved EF of 55 to 60% -Last echocardiogram completed in April 2023 which revealed an EF of 55 to 60%, mild MR, mild , mild TR -Patient has been evaluated by cardiology and recommended to continue with Lasix 40 mg IV every 12 hours; repeat echocardiogram to assess cardiac structure and function -We will monitor strict MARÍA's, daily weights, renal function electrolytes; avoid nephrotoxins and hypotension 2. UTI; patient has been placed on Rocephin 1 g IV daily; will adjust antibiotic therapy once blood cultures and urine cultures available 3. Leukocytosis; related to UTI will monitor CBC, CRP and procalcitonin; 4. Mild hyponatremia; likely related to diuretic use; will monitor electrolytes closely 5. Hyperglycemia/diabetes mellitus type 2 with long-term insulin use; patient uses Ozempic, Tresiba at home; we will hold off on home regimen and monitor Accu-Cheks before every meal and at bedtime with insulin sliding scale 6. Hypertension; Coreg 25 mg twice daily; hydralazine 100 mg 3 times daily; lisinopril 40 mg daily 7. Hyperlipidemia; Lipitor 80 mg p.o. nightly 8. Mild nonobstructive CAD; patient takes aspirin, statin and beta-blockers 9. Morbid obesity; patient educated on need for weight reduction DVT prophylaxis; SCDs/subcu heparin CODE STATUS; full code
[2024-06-20 20:38] LABS: Glucose,Whole Blood 200 mg/dL (70-110)
[2024-06-20] MEDS: DOCUSATE 100 MG CAP PO SCH (21:11)
[2024-06-21] MEDS: cloNIDine HCL 0.2 MG TAB PO PRN (01:53)
[2024-06-21 05:53] LABS: Glucose,Whole Blood 180 mg/dL (70-110)
[2024-06-21 07:45] VITALS: BP 131/76; PULSE 72; RESP 17; TEMP 97.6
[2024-06-21] MEDS: FUROSEMIDE 40 MG TAB PO SCH (09:31)
[2024-06-21 09:48] LABS: Basophils # (A) 0.02 X 10*3/uL (0.00-0.10); Basophils % (A) 0.3 %; Eosinophils # (A) 0.31 X 10*3/uL (0.04-0.35); Eosinophils % (A) 4.8 %; HCT 34.5 % (39.6-50.0); HGB 10.6 g/dL (13.0-17.0); Lymphocytes # (A) 1.13 X 10*3/uL (0.90-5.00); Lymphocytes % (A) 17.7 %; MCH 25.5 pg (27.0-32.0); MCHC 30.7 g/dL (32.0-37.0); MCV 82.9 FL (80.0-97.0); Mean Platelet Volume 11.6 FL (9.5-12.2); Monocytes # (A) 0.98 X 10*3/uL (0.20-1.00); Monocytes % (A) 15.3 %; NRBC Per 100 WBC 0 X 10*3/uL (0.00-0.01); Neutrophils # (A) 3.93 X 10*3/uL (1.80-7.70); Neutrophils % (A) 61.4 %; Platelet Count 201 X 10*3/uL (140-440); RBC 4.16 X 10*6/uL (4.40-5.60); RDW 16.9 % (11.5-14.5)
[2024-06-21 10:16] LABS: BUN/Creat Ratio 15.21 Ratio (12.00-20.00); Blood Urea Nitrogen 21.3 mg/dL (9.0-27.0); Calcium 7.9 mg/dL (8.7-10.3); Carbon Dioxide 26.3 mmol/L (21.6-31.8); Chloride 102 mmol/L (96-109); Glucose 196 mg/dL (70-110); Potassium 3.9 mmol/L (3.5-5.5); Sodium 138 mmol/L (135-145)
[2024-06-21 11:38] LABS: Glucose,Whole Blood 127 mg/dL (70-110)
--- NOTE | 2024-06-24 19:46 | P.DS ---
Providers Date of admission: 06/19/24 06:25 Expected date of discharge: 06/21/24 Attending physician: Riri Menard Primary care physician: [facility] Course: 78-year-old male with a past medical history significant for hypertension, hyperlipidemia, diabetes, congestive heart failure, mild non-obstructive CAD, and morbid obesity, presented to the hospital with complaint of shortness of breath. He states he has become more short of breath over the past few days. Patient was found to be in acute CHF and was started on Lasix 40 mg twice a day. Patient continues to report shortness of breath at the time of examination. He denies any chest pain or pressure. Workup completed in ED reveals --EKG reveals sinus mechanism with no signs of acute ischemia -Chest xray cardio megaly, mildly increased bilateral lower lung airspace opacities -Laboratory data: W BC 17.4. Hemoglobin 13.1. Platelet count 255. Sodium 133.BUN 19. Creatinine 1.0. Troponin negative 2. ProBNP 3005 -Most recent echocardiogram obtained in April 2023 revealed ejection fraction 55- 60%, mild MR, mild as, mild TR -Cardiac catheterization history: January 2009 revealing mild disease in the LAD Patient is being admitted to the hospital for diuresis and further evaluation by cardiology 1. Acute exacerbation CHF with preserved EF of 55 to 60% -Last echocardiogram completed in April 2023 which revealed an EF of 55 to 60%, mild MR, mild , mild TR -Patient has been evaluated by cardiology and recommended to continue with Lasix 40 mg IV every 12 hours; repeat echocardiogram to assess cardiac structure and function -We will monitor strict MARÍA's, daily weights, renal function electrolytes; avoid nephrotoxins and hypotension 2. UTI; patient has been placed on Rocephin 1 g IV daily; will adjust antibiotic therapy once blood cultures and urine cultures available 3. Leukocytosis; related to UTI will monitor CBC, CRP and procalcitonin; 4. Mild hyponatremia; likely related to diuretic use; will monitor electrolytes closely 5. Hyperglycemia/diabetes mellitus type 2 with long-term insulin use; patient uses Ozempic, Tresiba at home; we will hold off on home regimen and monitor Accu-Cheks before every meal and at bedtime with insulin sliding scale 6. Hypertension; Coreg 25 mg twice daily; hydralazine 100 mg 3 times daily; lisinopril 40 mg daily 7. Hyperlipidemia; Lipitor 80 mg p.o. nightly 8. Mild nonobstructive CAD; patient takes aspirin, statin and beta-blockers 9. Morbid obesity; patient educated on need for weight reduction Plan - Discharge Summary Discharge Rx Participant: No New Discharge Prescriptions: New Isosorbide Mononitrate ER [Imdur] 30 mg PO DAILY 30 Days #30 tab lisinopriL [Zestril] 10 mg PO BID 30 Days #30 tab cloNIDine HCL [Catapres] 0.2 mg PO TID PRN 30 Days #90 tab PRN Reason: HOLD IF SBP <120 Continue carvediloL 25 mg PO BID Aspirin EC [Ecotrin Low Dose] 81 mg PO DAILY Tamsulosin [Flomax] 0.4 mg PO BID SILVER sulfADIAZINE CREAM [Silvadene Cream] 1 applic TOPICAL BID PRN PRN Reason: WOUNDS Semaglutide [Ozempic] 1 mg SQ RUTLEDGE Insulin Degludec [Tresiba Flextouch U-200 Pen] 50 units SQ DAILY hydrALAZINE HCL [Apresoline] 100 mg PO TID-W/MEALS Atorvastatin [Lipitor] 80 mg PO DAILY Furosemide [Lasix] 40 mg PO BID HYDROcodone/APAP 10-325MG [[place] 10-325] 1 tab PO TID PRN 30 Days #90 tab PRN Reason: Pain Discontinued lisinopriL 40 mg PO DAILY Discharge Medication List Aspirin EC [Ecotrin Low Dose] 81 mg PO DAILY 02/22/21 [History] Tamsulosin [Flomax] 0.4 mg PO BID 02/22/21 [History] carvediloL 25 mg PO BID 02/22/21 [History] Atorvastatin [Lipitor] 80 mg PO DAILY 04/18/23 [History] Furosemide [Lasix] 40 mg PO BID 04/18/23 [History] Insulin Degludec [Tresiba Flextouch U-200 Pen] 50 units SQ DAILY 04/18/23 [History] SILVER sulfADIAZINE CREAM [Silvadene Cream] 1 applic TOPICAL BID PRN 04/18/23 [History] Semaglutide [Ozempic] 1 mg SQ RUTLEDGE 04/18/23 [History] hydrALAZINE HCL [Apresoline] 100 mg PO TID-W/MEALS 04/18/23 [History] HYDROcodone/APAP 10-325MG [[place] 10-325] 1 tab PO TID PRN 30 Days #90 tab 04/29/24 [Rx] Isosorbide Mononitrate ER [Imdur] 30 mg PO DAILY 30 Days #30 tab 06/21/24 [Rx] cloNIDine HCL [Catapres] 0.2 mg PO TID PRN 30 Days #90 tab 06/21/24 [Rx] lisinopriL [Zestril] 10 mg PO BID 30 Days #30 tab 06/21/24 [Rx] Follow up Appointment(s)/Referral(s): Darlene Hartley [Primary Care Provider] - 1-2 days Patient Instructions/Handouts: Heart Failure (DC) Discharge Disposition: HOME SELF-CARE
== END 2024-06-21 14:09 | disposition home or self-care (01) | DRG 291 ==
LOC: EC 03:11 → 4SSUR 06:25
PROVIDERS: ADMIT Hospitalist; ATTEND Hospitalist
DX: I11.0 Hypertensive heart disease with heart failure (principal); I50.33 Acute on chronic diastolic (congestive) heart failure; E87.1 Hypo-osmolality and hyponatremia; N39.0 Urinary tract infection, site not specified; Z68.42 Body mass index [BMI] 45.0-49.9, adult; E66.01 Morbid (severe) obesity due to excess calories; E11.65 Type 2 diabetes mellitus with hyperglycemia; J45.909 Unspecified asthma, uncomplicated; G93.0 Cerebral cysts; Z79.4 Long term (current) use of insulin; Z28.310 Unvaccinated for COVID-19; I25.10 Atherosclerotic heart disease of native coronary artery without angina pectoris; E78.5 Hyperlipidemia, unspecified; K21.9 Gastro-esophageal reflux disease without esophagitis; G47.33 Obstructive sleep apnea (adult) (pediatric); I25.2 Old myocardial infarction; T50.2X5A Adverse effect of carbonic-anhydrase inhibitors, benzothiadiazides and other diuretics, initial encounter; S22.9 Fracture of bony thorax, part unspecified; G89.29 Other chronic pain; M54.9 Dorsalgia, unspecified; L40.9 Psoriasis, unspecified; Z79.82 Long term (current) use of aspirin; Z79.85 Long-term (current) use of injectable non-insulin antidiabetic drugs; Z79.899 Other long term (current) drug therapy; Z71.3 Dietary counseling and surveillance; Z88.1 Allergy status to other antibiotic agents; Z88.8 Allergy status to other drugs, medicaments and biological substances
CPT/HCPCS: 36415; 71046; 80048; 80053; 81001; 83605; 83735; 83880; 84145; 84484; 85025; 85610; 85730; 87040; 87636; 93005; 93306; 96374; 96375; 99285

== ENCOUNTER → 2024-07-01 | Outpatient (CLI) | payer MEDICARE ==
[2024-07-01 13:42] VITALS: BP 110/62; PULSE 77; RESP 19
--- NOTE | 2024-07-01 14:49 | P.PAINPG ---
Objective - Vital Signs Vital signs: Vital Signs Temp Pulse 77 07/01/24 13:36 Resp 19 07/01/24 13:36 BP 110/62 07/01/24 13:36 Pulse Ox 94 L 07/01/24 13:36 FiO2 Intake & Output 06/30/24 07/01/24 07/01/24 18:59 06:59 18:59 Weight 303 kg PQRS Measure Charge Sheet Mode of Arrival: Wheelchair Comment: HISTORY OF PRESENT ILLNESS: A 78 yr old morbidly obese male presents today w severe and chronic mid and lower back pain > 4 yrs secondary to T7 compression fracture, DDD, spondylosis and facet arthropathy without myelopathy for medication refills. Pt states pain level is provoked at 8 /10 in intensity, constant, localized in the lower lumbar spine, predominantly axial, throbbing in character w occasional shooting pain towards the R hip and LEs. Pain is provoked by walking, weight bearing activity . Pain is alleviated by home PT x 8 wks in 2021, heat, massage device, medications, use of a cane for ambulatory assistance, topical, repositioning and rest. Oswestry axial pain score of 37. Interventional procedures include Medications include [place] 10/325mg #90 REVIEW OF ORGAN SYSTEMS: CONSTITUTIONAL: No fevers or chills. No recent weight loss. NEUROLOGICAL: + numbness and tingling along the distal extremities. No seizure disorders or headaches. MUSCULOSKELETAL: + pain PSYCHIATRIC: Denies current depression or suicidal thoughts. Physical Examinations : Constitutional : Cooperative , not in acute distress . Neurologic : Cranial nerve II to XII intact. No focal neurological deficits. Psychiatric : alert & oriented x 3. Matching mood & appropriate affect. Judgment & insight intact. Musculoskeletal : Cervical Spine Motor strength in the deltoid and biceps: Normal right side. Normal Left side Motor strength biceps and the wrist extensors: Normal right side . Normal left side Motor strength in the triceps muscle: Normal right side. Normal left side Deep tendon reflexes: Normal at the biceps. Normal at Brachioradialis. Normal at triceps Vertebral body tenderness to deep palpation over Cervical facet loading test: positive bilaterally Spurling test: positive bilaterally Neck distraction test: positive bilaterally Pardeep sign: positive bilaterally Thoracic spine Vertebral body TTP over T7 Lumbar spine Motor strength lower extremities ,thigh and legs 5/5 Right side , 5/5 Left side Deep tendon reflexes : Normal Knee Jerk. Normal Ankle Jerk Vertebral body tenderness over [place] Test positive over L4, L5 Lumbar facet Loading Test: positive Right / positive Left Range of motion of the lumbar spine Flexion 30 degrees, extension 10 degrees Straight Leg Raise test: Left/ Right positive at degree Susan test: positive right / positive left. Severe tenderness over the Sacroiliac joint on the Right / Left sides Gaenslen test: positive bilaterally Seated flexion test: positive bilaterally. Sacral spine : Severe tenderness over the Sacroiliac joint: right side / left side Range of motion: Flexion of the lumbar spine <60 degrees Range of motion: Extension of the lumbar spine <20 degrees Gaenslen's Test positive Gopal's Test positive Susan test: positive right side / left side Thigh Thrust Test Sacral Thrust Test Imaging: CT without contrast of the thoracic spine from 10/04/18 reviewed Assessment/ Plan : T7 compression fracture Recommendation of YUDITH L4-L5 #1 (but pt disinterested at this time) and medication management. [place] 10/325 #90 w 1 RF Use, side effects, adverse reactions and safe stores discussed. [place]/opiate agreement signed 08/28/23. Blood tox screen from 01/06/24 reviewed and consistent. All questions answered. I have spent greater than 30 minutes on patient care today. Dr Boggs was available by phone for the evaluation of this patient. The time was used to review the medical records including relevant urine studies and Prescription history (MAPs), review of the available imaging, evaluation and examination of the patient, coordination of care with the medical staff and if applicable referring physicians, as well as creation of the medical record - Pain Location Lower Back Non-Pharmacological Interventions: Heat Pharmacological Interventions: PRN Medication, Scheduled Medication PQRS Narrative: Smoking Status Never smoker Blood Pressure 110/62 Pain Intensity [Lower Back] 8 Scale Used Numeric (1 - 10) Hx Alcohol Use (MH) No Home Medications: Ambulatory Orders Aspirin EC [Ecotrin Low Dose] 81 mg PO DAILY 02/22/21 Tamsulosin [Flomax] 0.4 mg PO BID 02/22/21 carvediloL 25 mg PO BID 02/22/21 Atorvastatin [Lipitor] 80 mg PO DAILY 04/18/23 Furosemide [Lasix] 40 mg PO BID 04/18/23 Insulin Degludec [Tresiba Flextouch U-200 Pen] 50 units SQ DAILY 04/18/23 SILVER sulfADIAZINE CREAM [Silvadene Cream] 1 applic TOPICAL BID PRN 04/18/23 Semaglutide [Ozempic] 1 mg SQ RUTLEDGE 04/18/23 hydrALAZINE HCL [Apresoline] 100 mg PO TID-W/MEALS 04/18/23 Isosorbide Mononitrate ER [Imdur] 30 mg PO DAILY 30 Days #30 tab 06/21/24 cloNIDine HCL [Catapres] 0.2 mg PO TID PRN 30 Days #90 tab 06/21/24 lisinopriL [Zestril] 10 mg PO BID 30 Days #30 tab 06/21/24 HYDROcodone/APAP 10-325MG [[place] 10-325] 1 tab PO TID PRN 30 Days #90 tab 07/01/24 HYDROcodone/APAP 10-325MG [[place] 10-325] 1 tab PO TID PRN 30 Days #90 tab 07/01/24 Controlled Substance Measures - Controlled Substance Measures Is patient prescribed a controlled substance at discharge?: Yes When asked, does pt state using other controlled substances?: No If prescribed controlled substance>3 days was MAPS reviewed?: Yes
== END ==
LOC: PNWHC3 13:08
PROVIDERS: ATTEND Specialist
DX: M48.54XA Collapsed vertebra, not elsewhere classified, thoracic region, initial encounter for fracture (principal); M47.816 Spondylosis without myelopathy or radiculopathy, lumbar region; Z88.1 Allergy status to other antibiotic agents; Z88.8 Allergy status to other drugs, medicaments and biological substances
CPT/HCPCS: 99211

== ENCOUNTER → 2024-09-10 | Outpatient (CLI) | payer MEDICARE ==
[2024-09-10 12:45] VITALS: BP 167/78; PULSE 89; RESP 16; TEMP 99.5
--- NOTE | 2024-09-10 14:45 | P.PAINPG ---
Objective - Vital Signs Vital signs: Intake & Output 09/09/24 09/10/24 09/10/24 18:59 06:59 18:59 Weight 316 kg PQRS Measure Charge Sheet Comment: HISTORY OF PRESENT ILLNESS: A 78 yr old morbidly obese male presents today w severe and chronic mid and lower back pain > 4 yrs secondary to T7 compression fracture, DDD, spondylosis and facet arthropathy without myelopathy for medication refills. Pt states pain level is provoked at 8-9 /10 in intensity, constant, localized in the lower lumbar spine, predominantly axial, throbbing in character w occasional shooting pain towards the BLEs. Pain is provoked by walking, weight bearing activity. Pain is alleviated by home PT x 8 wks in 2021, heat, massage device, medications, use of a cane for ambulatory assistance, topical, repositioning and rest. Interventional procedures include Medications include [place] 10/325mg #90 REVIEW OF ORGAN SYSTEMS: CONSTITUTIONAL: No fevers or chills. No recent weight loss. NEUROLOGICAL: + numbness and tingling along the distal ext remities. No seizure disorders or headaches. MUSCULOSKELETAL: + pain PSYCHIATRIC: Denies current depression or suicidal thoughts. Physical Examinations : Constitutional : Cooperative , not in acute distress . Neurologic : Cranial nerve II to XII intact. No focal neurological deficits. Psychiatric : alert & oriented x 3. Matching mood & appropriate affect. Judgment & insight intact. Musculoskeletal : Cervical Spine Motor strength in the deltoid and biceps: Normal right side. Normal Left side Motor strength biceps and the wrist extensors: Normal right side . Normal left side Motor strength in the triceps muscle: Normal right side. Normal left side Deep tendon reflexes: Normal at the biceps. Normal at Brachioradialis. Normal at triceps Vertebral body tenderness to deep palpation over Cervical facet loading test: positive bilaterally Spurling test: positive bilaterally Neck distraction test: positive bilaterally Pardeep sign: positive bilaterally Thoracic spine Vertebral body TTP over T7 Lumbar spine Motor strength lower extremities ,thigh and legs 5/5 Right side , 5/5 Left side Deep tendon reflexes : Normal Knee Jerk. Normal Ankle Jerk Vertebral body tenderness over [place] Test positive over L4, L5 Lumbar facet Loading Test: positive Right / positive Left Range of motion of the lumbar spine Flexion 30 degrees, extension 10 degrees Straight Leg Raise test: Left/ Right positive at degree Susan test: positive right / positive left. Severe tenderness over the Sacroiliac joint on the Right / Left sides Gaenslen test: positive bilaterally Seated flexion test: positive bilaterally. Sacral spine : Severe tenderness over the Sacroiliac joint: right side / left side Range of motion: Flexion of the lumbar spine <60 degrees Range of motion: Extension of the lumbar spine <20 degrees Gaenslen's Test positive Gopal's Test positive Susan test: positive right side / left side Thigh Thrust Test Sacral Thrust Test Imaging: CT without contrast of the thoracic spine from 10/04/18 reviewed Assessment/ Plan : T7 compression fracture Recommendation of YUDITH L4-L5 #1 but pt disinterested again and medication management. [place] #90 w 1 RF Use, side effects, adverse reactions and safe stores discussed. [place]/opiate agreement signed 08/28/23. UDS collected 09/10/24. All questions answered. I have spent greater than 30 minutes on patient care today. Dr Boggs was available by phone for the evaluation of this patient. The time was used to review the medical records including relevant urine studies and Prescription history (MAPs), review of the available imaging, evaluation and examination of the patient, coordination of care with the medical staff and if applicable referring physicians, as well as creation of the medical record PQRS Narrative: Smoking Status Never smoker Hx Alcohol Use (MH) No Home Medications: Ambulatory Orders Aspirin EC [Ecotrin Low Dose] 81 mg PO DAILY 02/22/21 Tamsulosin [Flomax] 0.4 mg PO BID 02/22/21 carvediloL 25 mg PO BID 02/22/21 Atorvastatin [Lipitor] 80 mg PO DAILY 04/18/23 Furosemide [Lasix] 40 mg PO BID 04/18/23 Insulin Degludec [Tresiba Flextouch U-200 Pen] 50 units SQ DAILY 04/18/23 SILVER sulfADIAZINE CREAM [Silvadene Cream] 1 applic TOPICAL BID PRN 04/18/23 Semaglutide [Ozempic] 1 mg SQ RUTLEDGE 04/18/23 hydrALAZINE HCL [Apresoline] 100 mg PO TID-W/MEALS 04/18/23 Isosorbide Mononitrate ER [Imdur] 30 mg PO DAILY 30 Days #30 tab 06/21/24 cloNIDine HCL [Catapres] 0.2 mg PO TID PRN 30 Days #90 tab 06/21/24 lisinopriL [Zestril] 10 mg PO BID 30 Days #30 tab 06/21/24 HYDROcodone/APAP 10-325MG [[place] 10-325] 1 tab PO TID PRN 30 Days #90 tab 09/10/24 HYDROcodone/APAP 10-325MG [[place] 10-325] 1 tab PO TID PRN 30 Days #90 tab 09/10/24 Controlled Substance Measures - Controlled Substance Measures Is patient prescribed a controlled substance at discharge?: Yes When asked, does pt state using other controlled substances?: No If prescribed controlled substance>3 days was MAPS reviewed?: Yes
== END ==
LOC: PNWHC3 12:21
PROVIDERS: ATTEND Specialist
DX: G89.4 Chronic pain syndrome
CPT/HCPCS: 80307; 99211

== ENCOUNTER → 2024-11-09 | Outpatient (CLI) | payer MEDICARE ==
[2024-11-09 08:33] VITALS: BP 144/69; PULSE 78; RESP 16; TEMP 96.8
--- NOTE | 2024-11-09 15:19 | P.PAINPG ---
PQRS Measure Charge Sheet Comment: HISTORY OF PRESENT ILLNESS: A 79 yr old morbidly obese male presents today w severe and chronic mid and lower back pain > 4 yrs secondary to T7 compression fracture, radiculopathy, spondylosis and facet arthropathy without myelopathy for medication refills. Pt states pain level is provoked at 8-9 /10 in intensity, constant, localized in the lower lumbar spine, predominantly axial, throbbing in character w occasional shooting pain towards the BLEs. Pain is provoked by walking, weight bearing activity. Pain is alleviated by home PT x 8 wks in 2021, heat, massage device, medications, use of a cane for ambulatory assistance, topical, repositioning and rest. Interventional procedures include Medications include [place] 10/325mg #90 REVIEW OF ORGAN SYSTEMS: CONSTITUTIONAL: No fevers or chills. No recent weight loss. NEUROLOGICAL: + numbness and tingling along the distal extremities. No seizure disorders or headaches. MUSCULOSKELETAL: + pain PSYCHIATRIC: Denies current depression or suicidal thoughts. Physical Examinations : Constitutional : Cooperative , not in acute distress . Neurologic : Cranial nerve II to XII intact. No focal neurological deficits. Psychiatric : alert & oriented x 3. Matching mood & appropriate affect. Judgment & insight intact. Musculoskeletal : Cervical Spine Motor strength in the deltoid and biceps: Normal right side. Normal Left side Motor strength biceps and the wrist extensors: Normal right side . Normal left side Motor strength in the triceps muscle: Normal right side. Normal left side Deep tendon reflexes: Normal at the biceps. Normal at Brachioradialis. Normal at triceps Vertebral body tenderness to deep palpation over Cervical facet loading test: positive bilaterally Spurling test: positive bilaterally Neck distraction test: positive bilaterally Pardeep sign: positive bilaterally Thoracic spine Vertebral body TTP over T7 Lumbar spine Motor strength lower extremities ,thigh and legs 5/5 Right side , 5/5 Left side Deep tendon reflexes : Normal Knee Jerk. Normal Ankle Jerk Vertebral body tenderness over [place] Test positive over L4, L5 Lumbar facet Loading Test: positive Right / positive Left Range of motion of the lumbar spine Flexion 30 degrees, extension 10 degrees Straight Leg Raise test: Left/ Right positive at degree Susan test: positive right / positive left. Severe tenderness over the Sacroiliac joint on the Right / Left sides Gaenslen test: positive bilaterally Seated flexion test: positive bilaterally. Sacral spine : Severe tenderness over the Sacroiliac joint: right side / left side Range of motion: Flexion of the lumbar spine <60 degrees Range of motion: Extension of the lumbar spine <20 degrees Gaenslen's Test positive Gopal's Test positive Susan test: positive right side / left side Thigh Thrust Test Sacral Thrust Test Imaging: CT without contrast of the thoracic spine from 10/04/18 reviewed Assessment/ Plan : T7 compression fracture Recommendation of YUDITH L4-L5 #1 but pt disinterested and medication management. [place] #90 w 1 RF Use, side effects, adverse reactions and safe stores discussed. [place]/opiate agreement signed 11/09/24. UDS from 09/10/24 reviewed and consistent. All questions answered. I have spent greater than 30 minutes on patient care today. Dr Boggs was available by phone for the evaluation of this patient. The time was used to review the medical records including relevant urine studies and Prescription history (MAPs), review of the available imaging, evaluation and examination of the patient, coordination of care with the medical staff and if applicable referring physicians, as well as creation of the medical record - Pain Location Bilateral Lower Back Non-Pharmacological Interventions: Heat, Physical Therapy, Position/Reposition, Sitting Pharmacological Interventions: Scheduled Medication PQRS Narrative: Smoking Status Never smoker Narcotic Agreement Date Signed 09/10/24 Hx Alcohol Use (MH) No Home Medications: Ambulatory Orders Aspirin EC [Ecotrin Low Dose] 81 mg PO DAILY 02/22/21 Tamsulosin [Flomax] 0.4 mg PO BID 02/22/21 carvediloL 25 mg PO BID 02/22/21 Atorvastatin [Lipitor] 80 mg PO DAILY 04/18/23 Furosemide [Lasix] 40 mg PO BID 04/18/23 Insulin Degludec [Tresiba Flextouch U-200 Pen] 50 units SQ DAILY 04/18/23 SILVER sulfADIAZINE CREAM [Silvadene Cream] 1 applic TOPICAL BID PRN 04/18/23 Semaglutide [Ozempic] 1 mg SQ RUTLEDGE 04/18/23 hydrALAZINE HCL [Apresoline] 100 mg PO TID-W/MEALS 04/18/23 Isosorbide Mononitrate ER [Imdur] 30 mg PO DAILY 30 Days #30 tab 06/21/24 cloNIDine HCL [Catapres] 0.2 mg PO TID PRN 30 Days #90 tab 06/21/24 lisinopriL [Zestril] 10 mg PO BID 30 Days #30 tab 06/21/24 HYDROcodone/APAP 10-325MG [[place] 10-325] 1 tab PO TID PRN 30 Days #90 tab 11/09/24 HYDROcodone/APAP 10-325MG [[place] 10-325] 1 tab PO TID PRN 30 Days #90 tab 11/09/24 Controlled Substance Measures - Controlled Substance Measures Is patient prescribed a controlled substance at discharge?: Yes When asked, does pt state using other controlled substances?: No If prescribed controlled substance>3 days was MAPS reviewed?: Yes
== END ==
LOC: PNWHC3 08:18
PROVIDERS: ATTEND Specialist
DX: M47.24 Other spondylosis with radiculopathy, thoracic region (principal); S22.060A Wedge compression fracture of T7-T8 vertebra, initial encounter for closed fracture; Z88.1 Allergy status to other antibiotic agents; Z88.8 Allergy status to other drugs, medicaments and biological substances
CPT/HCPCS: 99211

== ENCOUNTER → 2025-01-27 | Outpatient (CLI) | payer MEDICARE ==
[2025-01-27 10:18] VITALS: BP 239/109; PULSE 73; RESP 16; TEMP 98
--- NOTE | 2025-01-27 14:32 | P.PAINPG ---
PQRS Measure Charge Sheet Comment: HISTORY OF PRESENT ILLNESS: A 79 yr old morbidly obese male presents today w severe and chronic mid and lower back pain > 4 yrs secondary to T7 compression fracture, radiculopathy, spondylosis and facet arthropathy without myelopathy for medication refills. Pt states pain level is provoked at 8-9 /10 in intensity, constant, localized in the lower lumbar spine, predominantly axial, throbbing in character w occasional shooting pain towards the BLEs. Pain is provoked by walking, weight bearing activity. Pain is alleviated by home PT x 8 wks in 2021, heat, massage device, medications, use of a cane for ambulatory assistance, topical, repositioning and rest. BP was elevated in exam room and urged to go ER for management. Pt stated he didn't take BP meds this morning. called and notified. Interventional procedures include Medications include [place] 10/325mg #90 REVIEW OF ORGAN SYSTEMS: CONSTITUTIONAL: No fevers or chills. No recent weight loss. NEUROLOGICAL: + numbness and tingling along the distal extremities. No seizure disorders or headaches. MUSCULOSKELETAL: + pain PSYCHIATRIC: Denies current depression or suicidal thoughts. Physical Examinations : Constitutional : Cooperative , not in acute distress . Neurologic : Cranial nerve II to XII intact. No focal neurological deficits. Psychiatric : alert & oriented x 3. Matching mood & appropriate affect. Judgment & insight intact. Musculoskeletal : Cervical Spine Motor strength in the deltoid and biceps: Normal right side. Normal Left side Motor strength biceps and the wrist extensors: Normal right side . Normal left side Motor strength in the triceps muscle: N ormal right side. Normal left side Deep tendon reflexes: Normal at the biceps. Normal at Brachioradialis. Normal at triceps Vertebral body tenderness to deep palpation over Cervical facet loading test: positive bilaterally Spurling test: positive bilaterally Neck distraction test: positive bilaterally Pardeep sign: positive bilaterally Thoracic spine Vertebral body TTP over T7 Lumbar spine Motor strength lower extremities ,thigh and legs 5/5 Right side , 5/5 Left side Deep tendon reflexes : Normal Knee Jerk. Normal Ankle Jerk Vertebral body tenderness over [place] Test positive over L4, L5 Lumbar facet Loading Test: positive Right / positive Left Range of motion of the lumbar spine Flexion 30 degrees, extension 10 degrees Straight Leg Raise test: Left/ Right positive at degree Susan test: positive right / positive left. Severe tenderness over the Sacroiliac joint on the Right / Left sides Gaenslen test: positive bilaterally Seated flexion test: positive bilaterally. Sacral spine : Severe tenderness over the Sacroiliac joint: right side / left side Range of motion: Flexion of the lumbar spine <60 degrees Range of motion: Extension of the lumbar spine <20 degrees Gaenslen's Test positive Gopal's Test positive Susan test: positive right side / left side Thigh Thrust Test Sacral Thrust Test Imaging: CT without contrast of the thoracic spine from 10/04/18 reviewed Assessment/ Plan : T7 compression fracture Recommendation of YUDITH L4-L5 #1 but pt disinterested and medication management. [place] #90 w 1 RF Use, side effects, adverse reactions and safe stores discussed. [place]/opiate agreement signed 11/09/24. UDS from 09/10/24 reviewed and consistent. All questions answered. I have spent greater than 30 minutes on patient care today. Dr Boggs was available by phone for the evaluation of this patient. The time was used to review the medical records including relevant urine studies and Prescription history (MAPs), review of the available imaging, evaluation and examination of the patient, coordination of care with the medical staff and if applicable referring physicians, as well as creation of the medical record PQRS Narrative: Smoking Status Never smoker Narcotic Agreement Date Signed 11/09/24 Hx Alcohol Use (MH) No Home Medications: Ambulatory Orders Aspirin EC [Ecotrin Low Dose] 81 mg PO DAILY 02/22/21 Tamsulosin [Flomax] 0.4 mg PO BID 02/22/21 carvediloL 25 mg PO BID 02/22/21 Atorvastatin [Lipitor] 80 mg PO DAILY 04/18/23 Furosemide [Lasix] 40 mg PO BID 04/18/23 Insulin Degludec [Tresiba Flextouch U-200 Pen] 50 units SQ DAILY 04/18/23 SILVER sulfADIAZINE CREAM [Silvadene Cream] 1 applic TOPICAL BID PRN 04/18/23 Semaglutide [Ozempic] 1 mg SQ RUTLEDGE 04/18/23 hydrALAZINE HCL [Apresoline] 100 mg PO TID-W/MEALS 04/18/23 Isosorbide Mononitrate ER [Imdur] 30 mg PO DAILY 30 Days #30 tab 06/21/24 cloNIDine HCL [Catapres] 0.2 mg PO TID PRN 30 Days #90 tab 06/21/24 lisinopriL [Zestril] 10 mg PO BID 30 Days #30 tab 06/21/24 HYDROcodone/APAP 10-325MG [[place] 10-325] 1 tab PO TID PRN 30 Days #90 tab 11/09/24 HYDROcodone/APAP 10-325MG [[place] 10-325] 1 tab PO TID PRN 30 Days #90 tab 11/09/24 Controlled Substance Measures - Controlled Substance Measures Is patient prescribed a controlled substance at discharge?: Yes When asked, does pt state using other controlled substances?: No If prescribed controlled substance>3 days was MAPS reviewed?: Yes
== END ==
LOC: PNWHC3 08:58
PROVIDERS: ATTEND Specialist
DX: S22.000A Wedge compression fracture of unspecified thoracic vertebra, initial encounter for closed fracture (principal); Z88.8 Allergy status to other drugs, medicaments and biological substances; Z88.1 Allergy status to other antibiotic agents
CPT/HCPCS: 99211

== ENCOUNTER → 2025-02-02 | Outpatient (CLI) | payer MEDICARE ==
--- NOTE | 2025-02-02 14:10 | MR ---
EXAMINATION TYPE: MR Prostate wo/w con DATE OF EXAM: 02/02/2025 12:51 PM COMPARISON: None. CLINICAL INDICATION: Male, 79 years old with history of elevated PSA; elevated psa. TECHNIQUE: Multi-planar, multi-sequence imaging of the pelvis is performed prior to and following the uncomplicated administration of bolus intravenous gadolinium. IV Contrast: 14 mL Gadobutrol Interpretive Criteria: PI-RADS v2.1 SERUM PSA: 3.95 07-22-24, 4.92 09-28-24 SURGICAL PATHOLOGY: No data available. FINDINGS: Prostatic dimensions: 5.3 x 4.9 x 3.4 cm cm. "Bullet" Volume:57.79 (PSA density=0.09 ng/mL/mL) CENTRAL GLAND (Central and Transition Zones/CZ+TZ): Multiple bilateral, heterogenous appearing hypertrophic stromal nodules, without suspicious lesion. M edian lobe hypertrophy with protrusion into the base of the bladder. (PI-RADS 2) PERIPHERAL ZONE (PZ): Gas limits evaluation the peripheral zone. Extruded BPH now on the lateral aspect of the peripheral z one on the right. Questionable (PI-RADS 2) SEMINAL VESICLES (SV): Symmetric and unremarkable. PERIPROSTATIC TISSUES: Unremarkable. LYMPH NODES: No enlarged pelvic lymph node. REMAINING PELVIS: Bladder wall is within normal limits given distention. No abnormal free or organized intrapelvic fluid collection. No pathologic bowel dilation or mural thickening. No hernia visualized OSSEOUS STRUCTURES: No suspicious osseous abnormality. IMPRESSION: 1. Limited evaluation of the peripheral zone due to susceptibility artifact from gas in the rectum. C onsider follow-up exam with rectal gas reduction techniques. No specific features for high-risk prost ate cancer. Maximum PI-RADS score: 2. 2. Moderate BPH, estimated gland volume 57.79 mL (PSA density=0.09 ng/mL/mL 3. No suspicious osseous lesion. No lymphadenopathy. No evidence of prostate adenocarcinoma involving the periprostatic tissues. [facility], , 02/02/2025 2:07 PM
== END | disposition home or self-care (01) ==
LOC: RADMRIMAIN 11-21 09:08
PROVIDERS: ATTEND Urology
DX: Z53.9 Procedure and treatment not carried out, unspecified reason (principal)
CPT/HCPCS: 72197; A9585

== ENCOUNTER → 2025-04-08 | Outpatient (CLI) | payer MEDICARE ==
[2025-04-08 12:36] VITALS: BP 213/102; PULSE 72; RESP 18; TEMP 98.1
--- NOTE | 2025-04-08 14:57 | P.PAINPG ---
PQRS Measure Charge Sheet Comment: HISTORY OF PRESENT ILLNESS: A 79 yr old morbidly obese male presents today w severe and chronic mid and lower back pain > 4 yrs secondary to T7 compression fracture, radiculopathy, spondylosis and facet arthropathy without myelopathy for medication refills. Pt states pain level is provoked at 8-9 /10 in intensity, constant, localized in the lower lumbar spine, predominantly axial, throbbing in character w occasional shooting pain towards the BLEs. Pain is provoked by walking, weight bearing activity. Pain is alleviated by home PT x 8 wks in 2021, heat, massage device, medications, use of a cane for ambulatory assistance, topical, repositioning and rest. BP was extremely elevated in exam room and urged to go ER for management. Despite discussing that his elevated BP can possibly cause stroke or , pt is refusing to go downstairs for medical management. Interventional procedures include Medications include [place] 10/325mg #90 REVIEW OF ORGAN SYSTEMS: CONSTITUTIONAL: No fevers or chills. No recent weight loss. NEUROLOGICAL: + numbness and tingling along the distal extremities. No seizure disorders or headaches. MUSCULOSKELETAL: + pain PSYCHIATRIC: Denies current depression or suicidal thoughts. Physical Examinations : Constitutional : Cooperative , not in acute distress . Neurologic : Cranial nerve II to XII intact. No focal neurological deficits. Psychiatric : alert & oriented x 3. Matching mood & appropriate affect. Judgment & insight intact. Musculoskeletal : Cervical Spine Motor strength in the deltoid and biceps: Normal right side. Normal Left side Motor strength biceps and the wrist extensors: Normal right side . Normal left side Motor strength in the triceps muscle: Normal right side. Normal left side Deep tendon reflexes: Normal at the biceps. Normal at Brachioradialis. Normal at triceps Vertebral body tenderness to deep palpation over Cervical facet loading test: positive bilaterally Spurling test: positive bilaterally Neck distraction test: positive bilaterally Pardeep sign: positive bilaterally Thoracic spine Vertebral body TTP over T7 Lumbar spine Motor strength lower extremities ,thigh and legs 5/5 Right side , 5/5 Left side Deep tendon reflexes : Normal Knee Jerk. Normal Ankle Jerk Vertebral body tenderness over [place] Test positive over L4, L5 Lumbar facet Loading Test: positive Right / positive Left Range of motion of the lumbar spine Flexion 30 degrees, extension 10 degrees Straight Leg Raise test: Left/ Right positive at degree Susan test: positive right / positive left. Severe tenderness over the Sacroiliac joint on the Right / Left sides Gaenslen test: positive bilaterally Seated flexion test: positive bilaterally. Sacral spine : Severe tenderness over the Sacroiliac joint: right side / left side Range of motion: Flexion of the lumbar spine <60 degrees Range of motion: Extension of the lumbar spine <20 degrees Gaenslen's Test positive Gopal's Test positive Susan test: positive right side / left side Thigh Thrust Test Sacral Thrust Test Imaging: CT without contrast of the thoracic spine from 10/04/18 reviewed Assessment/ Plan : T7 compression fracture Recommendation of medication management. Pt disinterested in YUDITH L4-L5 #1. [place] 10/325 #90 w 1 RF Use, side effects, adverse reactions and safe stores discussed. [place]/opiate agreement signed 11/09/24. UDS collected 04/08/25. All questions answered. I have spent greater than 30 minutes on patient care today. Dr Boggs was available by phone for the evaluation of this patient. The time was used to review the medical records including relevant urine studies and Prescription history (MAPs), review of the available imaging, evaluation and examination of the patient, coordination of care with the medical staff and if applicable referring physicians, as well as creation of the medical record - Pain Location Bilateral Leg Non-Pharmacological Interventions: Heat PQRS Narrative: Smoking Status Never smoker Narcotic Agreement Date Signed 11/09/24 Hx Alcohol Use (MH) No Home Medications: Ambulatory Orders Aspirin EC [Ecotrin Low Dose] 81 mg PO DAILY 02/22/21 Tamsulosin [Flomax] 0.4 mg PO BID 02/22/21 carvediloL 25 mg PO BID 02/22/21 Atorvastatin [Lipitor] 80 mg PO DAILY 04/18/23 Furosemide [Lasix] 40 mg PO BID 04/18/23 Insulin Degludec [Tresiba Flextouch U-200 Pen] 50 units SQ DAILY 04/18/23 SILVER sulfADIAZINE CREAM [Silvadene Cream] 1 applic TOPICAL BID PRN 04/18/23 Semaglutide [Ozempic] 1 mg SQ RUTLEDGE 04/18/23 hydrALAZINE HCL [Apresoline] 100 mg PO TID-W/MEALS 04/18/23 Isosorbide Mononitrate ER [Imdur] 30 mg PO DAILY 30 Days #30 tab 06/21/24 cloNIDine HCL [Catapres] 0.2 mg PO TID PRN 30 Days #90 tab 06/21/24 lisinopriL [Zestril] 10 mg PO BID 30 Days #30 tab 06/21/24 HYDROcodone/APAP 10-325MG [[place] 10-325] 1 tab PO TID PRN 30 Days #90 tab 04/08/25 HYDROcodone/APAP 10-325MG [[place] 10-325] 1 tab PO TID PRN 30 Days #90 tab 04/08/25 Controlled Substance Measures - Controlled Substance Measures Is patient prescribed a controlled substance at discharge?: Yes When asked, does pt state using other controlled substances?: No If prescribed controlled substance>3 days was MAPS reviewed?: Yes
== END ==
LOC: PNWHC3 12:13
PROVIDERS: ATTEND Specialist
DX: S22.069A Unspecified fracture of T7-T8 vertebra, initial encounter for closed fracture (principal); Z88.1 Allergy status to other antibiotic agents; Z88.8 Allergy status to other drugs, medicaments and biological substances
CPT/HCPCS: 80307; 99212

== ENCOUNTER 2025-04-12 15:44 | Emergency (ER) | payer MEDICARE ==
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
[2025-04-12 16:48] LABS: Basophils # (A) 0.05 10*3/uL (0.00-0.10); Basophils % (A) 0.5 %; Eosinophils # (A) 0.32 10*3/uL (0.04-0.35); Eosinophils % (A) 3.3 %; HCT 39.6 % (39.6-50.0); HGB 12.8 g/dL (13.0-17.0); Lymphocytes # (A) 1.36 10*3/uL (0.90-5.00); Lymphocytes % (A) 14.2 %; MCH 26.3 pg (27.0-32.0); MCHC 32.3 g/dL (32.0-37.0); MCV 81.5 fL (80.0-97.0); Mean Platelet Volume 11.6 fL (9.5-12.2); Monocytes # (A) 0.63 10*3/uL (0.20-1.00); Monocytes % (A) 6.6 %; Neutrophils # (A) 7.22 10*3/uL (1.80-7.70); Neutrophils % (A) 75.1 %; Platelet Count 299 10*3/uL (140-440); RBC 4.86 10*6/uL (4.40-5.60); RDW 15.2 % (11.5-14.5); WBC 9.61 10*3/uL (4.50-10.00)
[2025-04-12 17:05] LABS: Partial Thromboplastin Time 23.7 sec (22.0-30.0); Prothrombin Time 11.4 sec (10.0-12.5)
[2025-04-12 17:14] LABS: ALT 12 U/L (4-49); AST 19 U/L (17-59); African American GFR (CKD) 78 (>60 ml/min/1.73 sqM); Albumin 3.5 g/dL (3.5-5.0); Alkaline Phosphatase 115 U/L (38-126); Anion Gap 6 mmol/L; Blood Urea Nitrogen 19 mg/dL (9-20); Carbon Dioxide 30 mmol/L (22-30); Chloride 104 mmol/L (98-107); Lipase 62 U/L (23-300); Non-African American GFR(CKD) 67 (>60 ml/min/1.73 sqM); Potassium 3.7 mmol/L (3.5-5.1); Sodium 140 mmol/L (137-145); Total Bilirubin 0.7 mg/dL (0.2-1.3); Total Protein 6.9 g/dL (6.3-8.2)
[2025-04-12 17:21] LABS: NT-Pro-B-Type Natriuretic Pept 1220 pg/mL
[2025-04-12 17:26] LABS: Appearance,Urine Clear (Clear); Bilirubin,Urine Negative (Negative); Blood,Urine Negative (Negative); Color,Urine Yellow; Glucose,Urine (UA) 1+ (Negative); Hyaline Casts,Urine 1 /lpf (0-2); Ketones,Urine Negative (Negative); Leukocyte Esterase,Urine Negative (Negative); Mucus,Urine Few /hpf; Nitrite,Urine Negative (Negative); Protein,Urine 1+ (Negative); RBC,Urine 2 /hpf (0-5); Specific Gravity,Urine 1.019 (1.001-1.035); WBC,Urine 2 /hpf (0-5)
[2025-04-12 17:35] LABS: Glucose 40 mg/dL (74-99)
[2025-04-12 17:55] LABS: Glucose,Whole Blood 132 mg/dL (70-110)
[2025-04-12] MEDS: DEXTROSE 50% SYRINGE 50 ML IVP STA (17:56)
[2025-04-12 18:18] VITALS: RESP 18
[2025-04-12] MEDS: hydrALAZINE HCL 20 MG/ML 1 ML VIAL IVP STA (19:06)
[2025-04-12 19:35] LABS: Glucose,Whole Blood 187 mg/dL (70-110)
[2025-04-12 19:36] VITALS: BP 188/94; PULSE 74
[2025-04-12 20:09] VITALS: TEMP 97.7
== END 2025-04-12 20:13 | disposition home or self-care (01) ==
LOC: EC 15:44
DX: I10 Essential (primary) hypertension (principal); E11.649 Type 2 diabetes mellitus with hypoglycemia without coma; Z88.1 Allergy status to other antibiotic agents; Z88.8 Allergy status to other drugs, medicaments and biological substances
CPT/HCPCS: 36415; 93005; 83880; 80053; 83690; 83735; 84484; 85025; 85610; 85730; 81001; 99284; 96374; 96375; J0360

== ENCOUNTER → 2025-06-02 | Outpatient (CLI) | payer MEDICARE ==
[2025-06-02 08:33] VITALS: BP 92/61; PULSE 75; RESP 16; TEMP 97.2
--- NOTE | 2025-06-02 16:09 | P.PAINPG ---
Objective - Vital Signs Vital signs: Intake & Output 06/01/25 06/02/25 06/02/25 18:59 06:59 18:59 Weight 127.233 kg PQRS Measure Charge Sheet Comment: HISTORY OF PRESENT ILLNESS: A 79 yr old morbidly obese male presents today w severe and chronic mid and lower back pain > 4 yrs secondary to T7 compression fracture, radiculopathy, spondylosis and facet arthropathy without myelopathy for medication refills. Pt states pain level is provoked at 8 /10 in intensity, constant, localized in the lower lumbar spine, predominantly axial, throbbing in character w occasional shooting pain towards the BLEs. Pain is provoked by walking, weight bearing activity. Pain is alleviated by home PT x 8 wks in 2021, heat, massage device, medications, use of a cane for ambulatory assistance, topical, repositioning and rest. BP was extremely elevated in exam room and urged to go ER for management. Pt has lost approximately 20 lbs since his last visit, has been walking with more ease w his cane and has an upbeat mood. Interventional procedures include Medications include [place] 10/325mg #90 REVIEW OF ORGAN SYSTEMS: CONSTITUTIONAL: No fevers or chills. No recent weight loss. NEUROLOGICAL: + numbness and tingling along the distal extremities. No seizure disorders or headaches. MUSCULOSKELETAL: + pain PSYCHIATRIC: Denies current depression or suicidal thoughts. Physical Examinations : Constitutional : Cooperative , not in acute distress . Neurologic : Cranial nerve II to XII intact. No focal neurological deficits. Psychiatric : alert & oriented x 3. Matching mood & appropriate affect. Judgment & insight intact. Musculoskeletal : Cervical Spine Motor strength in the deltoid and biceps: Normal right side. Normal Left side Motor strength biceps and the wrist extensors: Normal right side . Normal left side Motor strength in the triceps muscle: Normal right side. Normal left side Deep tendon reflexes: Normal at the biceps. Normal at Brachioradialis. Normal at triceps Vertebral body tenderness to deep palpation over Cervical facet loading test: positive bilaterally Spurling test: positive bilaterally Neck distraction test: positive bilaterally Pardeep sign: positive bilaterally Thoracic spine Vertebral body TTP over T7 Lumbar spine Motor strength lower extremities ,thigh and legs 5/5 Right side , 5/5 Left side Deep tendon reflexes : Normal Knee Jerk. Normal Ankle Jerk Vertebral body tenderness over [place] Test positive over L4, L5 Lumbar facet Loading Test: positive Right / positive Left Range of motion of the lumbar spine Flexion 30 degrees, extension 10 degrees Straight Leg Raise test: Left/ Right positive at degree Susan test: positive right / positive left. Severe tenderness over the Sacroiliac joint on the Right / Left sides Gaenslen test: positive bilaterally Seated flexion test: positive bilaterally. Sacral spine : Severe tenderness over the Sacroiliac joint: right side / left side Range of motion: Flexion of the lumbar spine <60 degrees Range of motion: Extension of the lumbar spine <20 degrees Gaenslen's Test positive Gopal's Test positive Susan test: positive right side / left side Thigh Thrust Test Sacral Thrust Test Imaging: CT without contrast of the thoracic spine from 10/04/18 reviewed Assessment/ Plan : T7 compression fracture Recommendation of medication management. Pt disinterested in YUDITH L4-L5 #1. [place] 10/325 #90 w 1 RF Use, side effects, adverse reactions and safe stores discussed. Tan[place]ross/opiate agreement signed 11/09/24. UDS 04/08/25 reviewed and consistent. All questions answered. I have spent greater than 30 minutes on patient care today. Dr Boggs was available by phone for the evaluation of this patient. The time was used to review the medical records including relevant urine studies and Prescription history (MAPs), review of the available imaging, evaluation and examination of the patient, coordination of care with the medical staff and if applicable referring physicians, as well as creation of the medical record PQRS Narrative: Smoking Status Never smoker Narcotic Agreement Date Signed 11/09/24 Hx Alcohol Use (MH) No Home Medications: Ambulatory Orders Aspirin EC [Ecotrin Low Dose] 81 mg PO DAILY 02/22/21 Tamsulosin [Flomax] 0.4 mg PO BID 02/22/21 carvediloL 25 mg PO BID 02/22/21 Atorvastatin [Lipitor] 80 mg PO DAILY 04/18/23 Furosemide [Lasix] 40 mg PO BID 04/18/23 Insulin Degludec [Tresiba Flextouch U-200 Pen] 60 units SQ DAILY 04/18/23 SILVER sulfADIAZINE CREAM [Silvadene Cream] 1 applic TOPICAL DAILY 04/18/23 hydrALAZINE HCL [Apresoline] 100 mg PO TID-W/MEALS 04/18/23 Isosorbide Mononitrate ER [Imdur] 30 mg PO DAILY 30 Days #30 tab 06/21/24 HYDROcodone/APAP 10-325MG [[place] 10-325] 1 tab PO TID PRN 30 Days #90 tab 04/08/25 Empagliflozin [Jardiance] 10 mg PO DAILY 04/12/25 Fluticasone Nasal [place] [Flonase Nasal [place]] 1 - 2 spray EA NOSTRIL DAILY PRN 04/12/25 lisinopriL [Zestril] 10 mg PO DAILY 04/12/25 Insulin Degludec [Tresiba] 50 units SQ DAILY 06/02/25 Semaglutide [Ozempic] 1 mg SQ WEEKLY 06/02/25 Controlled Substance Measures - Controlled Substance Measures Is patient prescribed a controlled substance at discharge?: Yes When asked, does pt state using other controlled substances?: No If prescribed controlled substance>3 days was MAPS reviewed?: Yes
== END ==
LOC: PNWHC3 08:10
PROVIDERS: ATTEND Specialist
DX: M48.54XA Collapsed vertebra, not elsewhere classified, thoracic region, initial encounter for fracture (principal); Z88.1 Allergy status to other antibiotic agents; Z88.7 Allergy status to serum and vaccine
CPT/HCPCS: 99211

== ENCOUNTER 2025-06-06 06:55 | Emergency (ER) | payer MEDICARE, OTHER ==
[2025-06-06 07:03] LABS: Glucose,Whole Blood >600 mg/dL (70-110)
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
[2025-06-06 08:10] LABS: VBG HCO3 27.0 mmol/L (24-28); VBG PCO2 37.0 mmHg (37-51); VBG PH 7.48 (7.31-7.41)
[2025-06-06 08:11] LABS: Basophils # (A) 0.04 10*3/uL (0.00-0.10); Basophils % (A) 0.5 %; Eosinophils # (A) 0.34 10*3/uL (0.04-0.35); Eosinophils % (A) 4.1 %; HCT 41.0 % (39.6-50.0); HGB 13.4 g/dL (13.0-17.0); Lymphocytes # (A) 1.27 10*3/uL (0.90-5.00); Lymphocytes % (A) 15.3 %; MCH 26.1 pg (27.0-32.0); MCHC 32.7 g/dL (32.0-37.0); MCV 79.9 fL (80.0-97.0); Monocytes # (A) 0.75 10*3/uL (0.20-1.00); Monocytes % (A) 9.1 %; Neutrophils # (A) 5.83 10*3/uL (1.80-7.70); Neutrophils % (A) 70.4 %; Platelet Count 277 10*3/uL (140-440); RBC 5.13 10*6/uL (4.40-5.60); RDW 13.9 % (11.5-14.5); WBC 8.28 10*3/uL (4.50-10.00)
[2025-06-06 08:14] LABS: Bacteria,Urine Few /hpf; Bilirubin,Urine Negative (Negative); Blood,Urine Moderate (Negative); Budding Yeast,Urine Many /hpf; Color,Urine Colorless; Glucose,Urine (UA) 4+ (Negative); Ketones,Urine Negative (Negative); Leukocyte Esterase,Urine Large (Negative); Nitrite,Urine Positive (Negative); PH, Urine 6.5 (5.0-8.0); Protein,Urine 1+ (Negative); RBC,Urine 31 /hpf (0-5); Specific Gravity,Urine 1.021 (1.001-1.035); Urobilinogen,Urine <2.0 mg/dL (<2.0); WBC,Urine >182 /hpf (0-5)
[2025-06-06] MEDS: SODIUM CHLORIDE 0.9% 1,000 ML IV ONE (08:16)
[2025-06-06 08:26] LABS: ALT 15 U/L (4-49); AST 19 U/L (17-59); African American GFR (CKD) 66 (>60 ml/min/1.73 sqM); Albumin 3.5 g/dL (3.5-5.0); Alkaline Phosphatase 174 U/L (38-126); Anion Gap 9 mmol/L; Blood Urea Nitrogen 16 mg/dL (9-20); Calcium 9.2 mg/dL (8.4-10.2); Carbon Dioxide 25 mmol/L (22-30); Chloride 101 mmol/L (98-107); Magnesium 2.1 mg/dL (1.6-2.3); Non-African American GFR(CKD) 57 (>60 ml/min/1.73 sqM); Potassium 4.9 mmol/L (3.5-5.1); Sodium 135 mmol/L (137-145); Total Protein 6.7 g/dL (6.3-8.2)
[2025-06-06 08:57] LABS: Glucose 622 mg/dL (74-99)
[2025-06-06] MEDS: SODIUM CHLORIDE 0.9% 500 ML 500 ML IV ONE (09:14)
[2025-06-06] MEDS: INSULIN REGULAR 100 UNIT/ML VIAL (IV) IV ONE (09:19)
[2025-06-06 10:58] LABS: Glucose,Whole Blood 373 mg/dL (70-110)
[2025-06-06 11:56] VITALS: BP 119/80; PULSE 70; RESP 16; TEMP 98.8
== END 2025-06-06 11:57 | disposition home or self-care (01) ==
LOC: EC 06:55
DX: N39.0 Urinary tract infection, site not specified (principal); E11.65 Type 2 diabetes mellitus with hyperglycemia; I10 Essential (primary) hypertension; Z79.4 Long term (current) use of insulin; Z88.1 Allergy status to other antibiotic agents; Z88.8 Allergy status to other drugs, medicaments and biological substances
CPT/HCPCS: 36415; 93005; 80053; 82803; 82009; 83735; 85025; 81001; 87086; 99284; 96365; 96361; J0696